=== PATIENT | female | born 1990 | race Hispanic/Latino ===

== ENCOUNTER 2017-12-31 06:59 | Emergency (ER) | payer OTHER, SELFPAY ==
[2017-12-31 08:12] LABS: BUN Blood Urea Nitrogen 11 mg/dL (7-18); Bicarbonate 24 mmol/L (21-32); Glucose Level 118 mg/dL (74-106); HCG, Quantitative 123168 mIU/mL (1-3); Potassium 3.7 mmol/L (3.5-5.1); Sodium Level 137 mmol/L (136-145)
[2017-12-31 08:14] LABS: Urine Blood 2+ (NEG); Urine Glucose NEGATIVE (NEG); Urine Protein 2+ (NEG); Urine Specific Gravity >1.030 (1.005-1.030)
[2017-12-31 08:21] LABS: Absolute Lymphocytes (CBC) 1.1 K/uL (0.7-4.9); Absolute Monocytes 0.4 K/uL (0.1-1.3); Absolute Neutrophil 12.1 K/uL (1.8-8.0); Basophils % 0.2 % (0-1.3); Eosinophils % 0.5 % (0-4.4); Hematocrit 38.6 % (36.0-45.0); Lymphocytes % 7.9 % (15.3-44.8); MCH 30.1 pg (27.0-35.0); MCV 87.3 fL (80-100); MPV 8.6 fL (7.6-11.3); Monocytes % 3.1 % (3.3-12.3); RBC Red Blood Cell Count 4.42 M/uL (3.86-4.86)
[2017-12-31 08:24] LABS: Urine Bacteria 20-50 /HPF (<20)
[2017-12-31 08:25] LABS: Urine Culture Reflex Order NOT NEEDED
--- NOTE | 2017-12-31 09:54 | ER ---
Nurse's Notes [facility] Name: Karmen Parham Age: 27 yrs Sex: Female : 1990 Arrival Date: 12/31/2017 Time: 07:01 Bed 5 Private MD: Diagnosis: Urinary tract infection, site not specified;10 weeks gestation of Presentation: 12/31 07:04 Presenting complaint: Patient states: Right flank pain 10/15 that radiates to right mid hb back that stated at 0300 today. Denies urinary s/s or fever. 10 weeks , LMP 10/21/17. Transition of care: patient was not received from another setting of care. Onset of symptoms was December 31, 2017 at 03:00. Risk Assessment: Do you want to hurt yourself or someone else? Patient reports no desire to harm self or others. Care prior to arrival: None. 07:04 Method Of Arrival: Ambulatory hb 07:04 Acuity: NAUN 3 hb 07:04 Initial Sepsis Screen: Does the patient meet any 2 criteria? No. Patient's initial aa5 sepsis screen is negative. Does the patient have a suspected source of infection? No. Patient's initial sepsis screen is negative. USED [employer]: 07:06 LMP 10/21/2017 hb Historical: - Allergies: 07:07 No Known Allergies; hb - Home Meds: 07:07 Synthroid 175 mcg Oral tab 1 tab once daily [Active]; hb 07:10 Diclegis oral oral for Nausea Gravidarum [Active]; aa5 - PMHx: 07:07 Hypothyroidism; hb - PSHx: 07:07 Appendectomy; hb - Immunization history:: Adult Immunizations up to date. - Social history:: Smoking status: Patient/guardian denies using tobacco. - Ebola Screening: : No symptoms or risks identified at this time. Screenin:25 Abuse screen: Denies threats or abuse. Nutritional screening: No deficits noted. aa5 Tuberculosis screening: No symptoms or risk factors identified. Fall Risk None identified. Assessment: 07:10 General: Appears uncomfortable, Behavior is calm, cooperative. Pain: Complains of pain aa5 in right flank Pain radiates to right mid back and right low back Pain currently is 7 out of 10 on a pain scale. Quality of pain is described as sharp, stabbing, Pain began this morning. Is continuous. Neuro: Level of Consciousness is awake, alert, obeys commands, Oriented to person, place, time, situation. Cardiovascular: Heart tones S1 S2 present Rhythm is regular. Respiratory: Airway is patent Respiratory effort is even, unlabored, Respiratory pattern is regular, symmetrical, Breath sounds are clear bilaterally. GI: Abdomen is round non-distended, Bowel sounds present X 4 quads. Abd is soft and non tender X 4 quads. Pt reports vomited once this morning. Pt states "I am taking diclegis for nausea". : Denies burning with urination, urinary frequency, urgency, vaginal bleeding. EENT: No signs and/or symptoms were reported regarding the EENT system. Derm: Skin is pink, warm \\T\\ dry. Musculoskeletal: Range of motion: intact in all extremities. 08:30 Reassessment: Patient is alert, oriented x 3, equal unlabored respirations, skin aa5 warm/dry/pink. Pt notified of US order, pt verbalized understanding. . 09:58 Reassessment: Patient is alert, oriented x 3, equal unlabored respirations, skin aa5 warm/dry/pink. Vital Signs: 07:06 BP 149 / 85; Pulse 68; Resp 16; Temp 97.9; Pulse Ox 100% on R/A; Pain 7/10; hb 08:15 BP 120 / 92; Pulse 97; Resp 18 S; Pulse Ox 99% on R/A; aa5 09:55 BP 107 / 70; Pulse 97; Resp 16 S; Pulse Ox 100% on R/A; aa5 Vitals: 08:22 Heart Tones 124 bpm, CONTAINER COORDINATOR notified . aa5 ED Course: 07:01 Patient arrived in ED. am2 07:03 [facility] Ben[facility]C [facility]. kb 07:03 Warren Hair MD is Attending Physician. kb 07:04 Chela Kenney, SHONA is Primary Nurse. aa5 07:06 Triage completed. hb 07:06 Arm band placed on right wrist. hb 07:10 Patient has correct armband on for positive identification. Bed in low position. Call aa5 light in reach. Side rails up X2. 07:25 Initial lab(s) drawn, by me, sent to lab. Inserted saline lock: 20 gauge in left aa5 antecubital area, using aseptic technique. Blood collected. 08:45 Patient taken to ultrasound. via wheelchair. hr 09:04 US Transvaginal Ob In Process Unspecified. EDMS 09:07 Ultrasound completed. Patient tolerated well. Patient moved back from ultrasound. hr 09:55 No provider procedures requiring assistance completed. aa5 09:55 IV discontinued, intact, bleeding controlled, No redness/swelling at site. Pressure aa5 dressing applied. Administered Medications: No medications were administered Outcome: 09:53 Discharge ordered by MD. kb 09:58 Discharged to home ambulatory, with family. aa5 09:58 Condition: stable 09:58 Discharge instructions given to patient, Instructed on discharge instructions, follow up and referral plans. medication usage, Demonstrated understanding of instructions, follow-up care, medications, Prescriptions given X 1. 09:59 Patient left the ED. iw Signatures: Dispatcher [employer] EDMS Ashly Benito, LUBRICATING MACHINE TENDER-C LUBRICATING MACHINE TENDER-Ckb Sunitha Gerber Erica Mcallister RN RN Chela Kenney RN RN aa5 Jami Ghosh, SHONA RN Florina Mccoy am2 Corrections: (The following items were deleted from the chart) 07:25 07:04 Presenting complaint: Patient states: Right flank pain 10/15 that radiates to hb right mid back that stated at 0300 today. Denies urinary s/s or fever. 110 weeks , LMP 10/21/17. hb
--- NOTE | 2017-12-31 09:54 | EDPHYS ---
Physician Documentation [facility] Name: Karmen Parham Age: 27 yrs Sex: Female : 1990 Arrival Date: 12/31/2017 Time: 07:01 Bed 5 Private MD: ED Physician Warren Hair HPI: 12/31 07:44 This 27 yrs old Female presents to ER via Ambulatory with complaints of kb Abdominal Pain. 07:44 The patient presents with abdominal pain in the right upper quadrant, right lower kb quadrant. Onset: The symptoms/episode began/occurred today, at 03:00. The symptoms radiate to the right flank. Associated signs and symptoms: none. The symptoms are described as constant. Modifying factors: The symptoms are alleviated by nothing, the symptoms are aggravated by pressure. Severity of pain: At its worst the pain was mild moderate in the emergency department the pain is unchanged. The patient has not experienced similar symptoms in the past. The patient has not recently seen a physician. PIZZA COOK: 07:06 LMP 10/21/2017 hb Historical: - Allergies: 07:07 No Known Allergies; hb - Home Meds: 07:07 Synthroid 175 mcg Oral tab 1 tab once daily [Active]; hb 07:10 Diclegis oral oral for Nausea Gravidarum [Active]; aa5 - PMHx: 07:07 Hypothyroidism; hb - PSHx: 07:07 Appendectomy; hb - Immunization history:: Adult Immunizations up to date. - Social history:: Smoking status: Patient/guardian denies using tobacco. - Ebola Screening: : No symptoms or risks identified at this time. ROS: 07:42 Constitutional: Negative for fever, chills, and weight loss, Neck: Negative for injury, kb pain, and swelling, Cardiovascular: Negative for chest pain, palpitations, and edema, Respiratory: Negative for shortness of breath, cough, wheezing, and pleuritic chest pain, : Negative for injury, bleeding, discharge, and swelling, MS/Extremity: Negative for injury and deformity, Skin: Negative for injury, rash, and discoloration, Neuro: Negative for headache, weakness, numbness, tingling, and seizure. 07:42 Abdomen/GI: Positive for abdominal pain. 07:42 Back: Positive for flank pain, on the right. Exam: 07:43 Constitutional: This is a well developed, well nourished patient who is awake, alert, kb and in no acute distress. Head/Face: Normocephalic, atraumatic. Chest/axilla: Normal chest wall appearance and motion. Nontender with no deformity. No lesions are appreciated. Cardiovascular: Regular rate and rhythm with a normal S1 and S2. No gallops, murmurs, or rubs. Normal PMI, no JVD. No pulse deficits. Respiratory: Lungs have equal breath sounds bilaterally, clear to auscultation and percussion. No rales, rhonchi or wheezes noted. No increased work of breathing, no retractions or nasal flaring. Skin: Warm, dry with normal turgor. Normal color with no rashes, no lesions, and no evidence of cellulitis. MS/ Extremity: Pulses equal, no cyanosis. Neurovascular intact. Full, normal range of motion. Neuro: Awake and alert, GCS 15, oriented to person, place, time, and situation. Cranial nerves II-XII grossly intact. Motor strength 5/5 in all extremities. Sensory grossly intact. Cerebellar exam normal. Normal gait. 07:43 Abdomen/GI: Inspection: abdomen appears normal, Bowel sounds: normal, in all quadrants, Palpation: soft, in all quadrants, mild abdominal tenderness, in the right upper quadrant and right lower quadrant. 07:43 Back: CVA tenderness, that is mild, is noted on the right. Vital Signs: 07:06 BP 149 / 85; Pulse 68; Resp 16; Temp 97.9; Pulse Ox 100% on R/A; Pain 7/10; hb 08:15 BP 120 / 92; Pulse 97; Resp 18 S; Pulse Ox 99% on R/A; aa5 09:55 BP 107 / 70; Pulse 97; Resp 16 S; Pulse Ox 100% on R/A; aa5 MDM: 07:05 Patient medically screened. kb 07:44 Data reviewed: vital signs, nurses notes. Data interpreted: Pulse oximetry: on room air kb is 100 %. Interpretation: normal. 09:49 Counseling: I had a detailed discussion with the patient and/or guardian regarding: the kb historical points, exam findings, and any diagnostic results supporting the discharge/admit diagnosis, lab results, radiology results, the need for outpatient follow up, an OB/Gyne specialist, to return to the emergency department if symptoms worsen or persist or if there are any questions or concerns that arise at home. 12/31 07:20 Order name: Urine Microscopic Only; Complete Time: 08:25 kb 12/31 07:20 Order name: Quantitative Hcg; Complete Time: 08:14 kb 12/31 07:20 Order name: Abo/rh Typing; Complete Time: 08:14 kb 12/31 07:20 Order name: Basic Metabolic Panel; Complete Time: 08:14 kb 12/31 07:20 Order name: CBC with Diff kb 12/31 07:21 Order name: Urine Dipstick--Ancillary (enter results) bd 12/31 07:11 Order name: Urine Dipstick-Ancillary (obtain specimen); Complete Time: 07:18 kb 12/31 07:20 Order name: Urine Test (obtain specimen); Complete Time: 07:25 kb 12/31 07:20 Order name: IV Saline Lock; Complete Time: 07:25 kb 12/31 07:20 Order name: Labs collected and sent; Complete Time: 07:26 kb 12/31 07:21 Order name: Urine --Ancillary (enter results); Complete Time: 08:18 bd 12/31 08:14 Order name: ABO/RH no charge; Complete Time: 08:18 EDMS 12/31 08:21 Order name: CBC Smear Scan EDMS 12/31 08:24 Order name: US Transvaginal Ob kb 12/31 07:20 Order name: NPO; Complete Time: 07:22 kb 12/31 08:14 Order name: FHT's; Complete Time: 08:26 kb Administered Medications: No medications were administered Disposition: 14:10 Co-signature as Attending Physician, Warren Hair MD I agree with the assessment and efra plan of care. Disposition: 12/31/17 09:53 Discharged to Home. Impression: Urinary tract infection, site not specified, 10 weeks gestation of . - Condition is Stable. - Discharge Instructions: First Trimester of , [id number], and Urinary Tract Infection. - Prescriptions for Augmentin 875- 125 mg Oral Tablet - take 1 tablet by ORAL route every 12 hours for 7 days; 14 tablet. - Medication Reconciliation Form, Thank You Letter, Antibiotic Education, Prescription Opioid Use form. - Follow up: Emergency Department; When: As needed; Reason: Worsening of condition. Follow up: Private Physician; When: 2 - 3 days; Reason: Recheck today's complaints, Continuance of care, Re-evaluation by your physician. Signatures: Dispatcher [employer] Ashly Jones, JAYA-Dae BENAVIDESP-Warren Sorto MD MD cha Williams, Irene, SHONA RN iw Chela Kenney RN RN aa5 Jami Ghosh RN RN Corrections: (The following items were deleted from the chart) 09:54 09:53 12/31/2017 09:53 Discharged to Home. Impression: Urinary tract infection, site kb not specified. Condition is Stable. Forms are Medication Reconciliation Form, Thank You Letter, Antibiotic Education, Prescription Opioid Use. Follow up: Emergency Department; When: As needed; Reason: Worsening of condition. Follow up: Private Physician; When: 2 - 3 days; Reason: Recheck today's complaints, Continuance of care, Re-evaluation by your physician. kb 09:59 09:54 12/31/2017 09:53 Discharged to Home. Impression: Urinary tract infection, site iw not specified; 10 weeks gestation of . Condition is Stable. Forms are Medication Reconciliation Form, Thank You Letter, Antibiotic Education, Prescription Opioid Use. Follow up: Emergency Department; When: As needed; Reason: Worsening of condition. Follow up: Private Physician; When: 2 - 3 days; Reason: Recheck today's complaints, Continuance of care, Re-evaluation by your physician. kb
--- NOTE | 2017-12-31 10:10 | RAD REPORT ---
EXAM DESCRIPTION: US - Transvaginal OB - 12/31/2017 9:03 am CLINICAL HISTORY: with abdominal pain delete the COMPARISON: None. FINDINGS: The uterus measures 12 x 7 x 8 centimeters. A gestational sac is present within the endom etrium. Within this is a yolk sac and pole with a crown-rump length 3.4 centimeters. Cardiac ac tivity 168 beats per minute A mucus plug is suspected within the cervical canal The ovaries are normal in size and echotexture. No significant free fluid is seen. IMPRESSION: Single live intrauterine with an estimated gestational age 10 weeks 2 days ED D 07/27/2018
[2017-12-31 12:25] LABS: Blood Morphology Comment NOT SEEN (NOT SEEN); Platelet Estimate ADEQ; Urine White Blood Cell Casts OK
== END 2017-12-31 09:59 | disposition home or self-care (01) ==
LOC: ER 06:59
DX: O23.41 Unspecified infection of urinary tract in pregnancy, first trimester (principal); O99.281 Endocrine, nutritional and metabolic diseases complicating pregnancy, first trimester; E03.9 Hypothyroidism, unspecified
CPT/HCPCS: 36415; 76817; 80048; 81003; 81015; 81025; 84702; 85025; 86900; 86901; 99284

== ENCOUNTER 2018-02-11 16:22 | Inpatient (IN) | payer OTHER ==
[2018-02-11 17:55] LABS: Absolute Lymphocytes (CBC) 1.5 K/uL (0.7-4.9); Absolute Monocytes 0.4 K/uL (0.1-1.3); Absolute Neutrophil 8.8 K/uL (1.8-8.0); Basophils % 0.6 % (0-1.3); Eosinophils % 1.3 % (0-4.4); Hematocrit 38.6 % (36.0-45.0); Lymphocytes % 13.6 % (15.3-44.8); MCV 88.2 fL (80-100); MPV 8.4 fL (7.6-11.3); Monocytes % 3.7 % (3.3-12.3); RBC Red Blood Cell Count 4.38 M/uL (3.86-4.86)
[2018-02-11 18:20] LABS: ALT/SGPT 24 U/L (12-78); AST/SGOT 14 U/L (15-37); Albumin 3.3 g/dL (3.4-5.0); Alkaline Phosphatase 84 U/L (45-117); BUN Blood Urea Nitrogen 8 mg/dL (7-18); Bicarbonate 23 mmol/L (21-32); Bilirubin Total 0.2 mg/dL (0.2-1.0); Glucose Level 120 mg/dL (74-106); Magnesium 1.8 mg/dL (1.8-2.4); Potassium 3.4 mmol/L (3.5-5.1); Protein, Total 7.3 g/dL (6.4-8.2); Sodium Level 138 mmol/L (136-145); Thyroid Stimulating Hormone 0.262 uIU/mL (0.360-3.740)
[2018-02-11] MEDS ORDERED: POTASSIUM 25 MEQ EFFERV TAB PO ONE (18:38)
[2018-02-11] MEDS ORDERED: MAGNESIUM SULFATE 1 gm IVPB 1 GM/100 ML BAG IV ONE (20:00)
[2018-02-11] MEDS ORDERED: NA CHLORIDE 0.9% 250 ML ONE (20:32)
--- NOTE | 2018-02-11 20:55 | RAD REPORT ---
EXAM DESCRIPTION: US - OB Complete - 02/11/2018 8:33 pm CLINICAL HISTORY: Pyelonephritis, Back pain age. COMPARISON: Transvaginal OB dated 12/31/2017 FINDINGS: A single breech presenting gestation is identified. Heart rate normal. The intracranial contents and spine were suboptimally visualized due to position. Fluid-f illed stomach bubble was seen. A normal fluid-filled urinary bladder seen without pelviectasis. Three-vessel cord was limited by position. Four-chamber view of the heart is grossly unremarka ble for gestational age. No gross abnormalities are identifiable for gestational age. measurements are as follows: BPD:3.5 Centimeters 16 weeks 6 days HC:13.3 Centimeters 16 weeks 6 days AC:10.8 Centimeters 16 weeks 5 days HL:2.2 Centimeters 16 weeks 6 days FL:2.3 Centimeters 16 weeks 5 days The estimated gestational age (EGA) is 16 weeks 6 days with an XAVIER of07/23/2018. The placenta is grade 0, anterior in location. No placenta previa. The amniotic fluid volume is normal. The maternal adnexa show no worrisome findings. IMPRESSION: 1. Single, breech gestation with an EGA of 16 weeks 6 days and an XAVIER of the 07/23/2018. 2. No gross abnormalities are identifiable within the above detailed limitations. 3. Grade 0, anterior placenta. 4. Amniotic fluid volume is normal.
[2018-02-11] MEDS ORDERED: Meropenem 1000 MG/VIAL IV SCH (21:00)
[2018-02-11] MEDS: Meropenem 1,000 MG in NA CHLORIDE 0.9% 100 ML IV SCH (21:27)
--- NOTE | 2018-02-11 22:26 | P.CNS ---
Date of Consult: 02/11/18 Patient is a 27 y/o XAVIER 07/28/18 at 16 weeks gestation with care complicated by hypothyroidism and now is admitted due to acute pyleonephritis. Patient had been treated with antibiotics for the last 2 weeks and now was found to have a urine culture positive for 3 organisms: Klebsiella pneumoniae, E. coli, and proteus mirabalis. Culture is ESBL positive requiring treatment with meropenem. Patient currently reports some flank pain. She is also still experiencing burning with urination. She denies pelvic pain/cramping. No vaginal bleeding. Denies feeling movements. Patient is scheduled to see MF for this as well due to hypothyroidism. SPECIAL NEEDS CHILD CAREGIVER: primiparous; regular menses PMH: hypothyroidism; synthroid 175 mcg RH positive Selected Entries 02/11/18 02/11/18 02/11/18 17:00 17:09 20:00 Temperature 97.9 F 97.9 F Pulse Rate 117 H 103 H Respiratory 17 18 Rate Blood Pressure 116/73 126/70 Pain Level 0 O2 Sat by Pulse 98 Oximetry Laboratory Tests 02/11/18 17:20 WBC 10.8 Hgb 13.1 Hct 38.6 Plt Count 290 General: Patient is standing up in her room without any distress head and neck: Normocephalic atraumatic neck is supple abdomen: Gravid nontender bilaterally extremities: No clubbing cyanosis or edema Nerissa the is a 27-year-old 1 para 0 at 16 weeks gestation with acute pyelonephritis with 3 microorganisms and ESBL. She will receive IV meropenem. Discussed safety with patient. Patient verbalizes understanding and feels reassured. Will order an OB ultrasound. Patient will continue to be followed by primary attending. Patient will follow up with me in the office and also will be scheduled to see MFM. No further OB intervention.
[2018-02-12 06:52] LABS: BUN Blood Urea Nitrogen 6 mg/dL (7-18); Bicarbonate 24 mmol/L (21-32); Glucose Level 99 mg/dL (74-106); Magnesium 1.9 mg/dL (1.8-2.4); Potassium 3.7 mmol/L (3.5-5.1); Sodium Level 138 mmol/L (136-145)
--- NOTE | 2018-02-12 07:59 | RAD REPORT ---
EXAM DESCRIPTION: RAD - Chest Single View - 02/11/2018 11:19 pm CLINICAL HISTORY: Device placement PICC line placement COMPARISON: none FINDINGS: A PICC line has been inserted with its tip in the mid superior vena cava. The lungs appear clear of acute infiltrate. The heart is normal size. IMPRESSION: PICC line with its tip in the mid superior vena cava
[2018-02-12] MEDS: Meropenem 1,000 MG in NA CHLORIDE 0.9% 100 ML IV SCH ×2 (09:25→20:43)
--- NOTE | 2018-02-12 12:04 | RAD REPORT ---
EXAM DESCRIPTION: US - Renal Ultrasound-Complete - 02/12/2018 8:45 am CLINICAL HISTORY: . COMPARISON: None. FINDINGS: The right kidney measures 10 cm with a normal echotexture. The left kidney measures 11 cm with a normal echotexture. Hydronephrosis is not seen. Bladder is decompressed Fatty infiltration liver suspected IMPRESSION: Unremarkable renal ultrasound.
--- NOTE | 2018-02-12 19:25 | HP ---
Date of Admission: 02/11/2018 Chief Complaint: Urinary tract infection. 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 She was evaluated in the emergency room at that time. Her evaluation at that time consisted o f urinalysis, CBC and white count had shown 13.7, otherwise CBC was unremarkable. Chemistry was unre markable. Urinalysis was abnormal consistent with urinary tract infection. There was no urine cultu re done and she was sent home with oral antibiotics. Her left posterior flank pain got better as she reported after use of antibiotics and she was doing fine until on 02/08/2018, [facility] with recurrence of left posterior flank pain and through [facility] she was given antib iotics after urinalysis and urine culture was done. She was taking antibiotic and today, she was con tacted by [facility] that her urine culture results came back and she needed to take 5 more d ays of Augmentin and the patient did not feel comfortable with this information that she got [facility], so she came in to see me with her mother today. The patient says she has not felt a ny better this time after oral antibiotic was given from [facility] on 02/08/2018, she contin ues to have feeling like pressure in the bladder area and left posterior flank pain. She denies any fever or chills. During this in the beginning phase, she had some nausea and vomiting, whi ch had gotten better, but as of last 3-4 days her nausea and vomiting problem has gotten worse with t his urinary tract infection problem. After she came to office, after I evaluated, I also reviewed he r urine culture results and unfortunately her urine culture that was done at our hospital to [facility] on 02/08/2018 is growing 3 different bacteria, Klebsiella, Proteus, E coli, and this organ ism is ESBL as reported by microbiology lab and antibiotic of choice for this kind of infection is me ropenem. I did talk to patient in detail about all this results and obviously she is not improving a ny with this infection with oral antibiotic, now we have definite evidence of what particular type of infection she has and we will be recommending her to be admitted to the hospital for IV antibiotic t herapy. The patient agreed, I did contact her RN TRAUMA Dr. Fonseca to discuss details with her and she a grees with the plan of treatment and meropenem is category B drug. All these details were discussed with the patient. Allergies: NO KNOWN ALLERGIES. Medications: She takes Diclegis 1 tablet at bedtime and levothyroxine 175 mcg p.o. daily. Review of Systems: Genitourinary: As mentioned above. GI: As mentioned above. All other systems reviewed and negative. Social History: Negative for smoking, alcohol use. Family History: Significant for hyperlipidemia. Past Medical History: Significant for hypothyroidism. Past Surgical History: Appendectomy and surgery for strabismus. Physical Examination: Vital Signs: When I saw her at office for vital Signs; height 59 inches, weight 163.4 pounds, blood pressure 124/80, pulse 94, respiratory rate 15, temperature 98 degree Fahrenheit. General: Awake, alert, oriented, not in distress. HEENT: Head atraumatic, normocephalic. Conjunctivae nonerythematous. Sclerae white. Mouth, no thr ush or edema noted. Ears/Nose, no mass, lesion, discharge noted. Neck: Supple. No JVD, lymph nodes, bruit, thyromegaly noted. Lungs: Bilateral good equal air entry. Clear to auscultation. No rhonchi. No rales. Heart: Normal heart sounds, no murmur or gallop. Abdomen: Soft, bowel sounds normal. No guarding, rigidity, tenderness, mass, hepatosplenomegaly, dis tention, or bruit noted. Extremities: No leg edema. No calf tenderness. Skin: No rash, ulcer, cellulitis. Lymphatics: No lymph node enlargement in neck, supraclavicular, infraclavicular region. Neuro: No focal neurological deficit. Chest: Unremarkable. External Genitalia: Deferred. Rectal: Deferred. Laboratory Data: White count 10.8, hemoglobin 13.1, platelets 290. Sodium 138, potassium 3.4, chlor yaneth 107, bicarb 23, BUN 8, creatinine 0.40, glucose 120. Liver function tests unremarkable. Magnesi um 1.8. TSH 0.262. Procalcitonin less than 0.05. Impression: 1.Acute pyelonephritis, left side. 2.Hypokalemia. 3., gestational 4 months. 4.Hypothyroidism. Plan: We will admit the patient to hospital for further evaluation and management of this problem. The patient is appropriate for inpatient and is expected to spend 2 midnights in hospital. Details a nd plan of treatment discussed with her. The patient is having this urinary tract infection problem started over a month ago and she did improve with oral antibiotic initially, which was about a month ago, this time she is not improving any. Obviously, her urine culture is growing 3 different bacteri a and it is ESBL. We will go ahead and initiate IV antibiotic therapy, which is meropenem and it is category B drug. Details were discussed with her and Dr. Fonseca, she is in agreement with t nancy treatment plan and we will consult her while patient is in the hospital for her evaluation. We wi ll get a renal ultrasound done tomorrow. I will see her tomorrow for followup. MICHELLE/MAEVE Voice ID: [id number]
--- NOTE | 2018-02-12 23:04 | PN ---
Date of Progress Note: 02/12/2018 Subjective: The patient was seen this morning for followup. She denied any complaints overnight. N o nausea, vomiting. Objective: Vital Signs: Reviewed. HEENT: Unremarkable. Lungs: Clear to auscultation. No rhonchi or rales. Heart: Sounds normal. Abdomen: Soft. Bowel sounds normal. No guarding, rigidity, tenderness, distention. Extremities: No leg edema. Laboratory Data: Sodium 138, potassium 3.7, chloride 108, bicarb 24, BUN 6, creatinine 0.30, glucose 99. The patient had a PICC line placed last night. Chest x-ray reviewed. Her renal ultrasound don e today was unremarkable. Impression: 1.Acute pyelonephritis. 2.Hypothyroidism. Plan: We will continue current meropenem and Social Service to help make arrangements for IV antibio tics for home use, possible discharge to go home tomorrow. SCDs in place for DVT prophylaxis. MICHELLE/MAEVE Voice ID: [id number] Report ID: [id number]
[2018-02-13] MEDS: Meropenem 1,000 MG in NA CHLORIDE 0.9% 100 ML IV SCH (09:39)
--- NOTE | 2018-02-14 16:22 | DS ---
Date of Discharge: 02/13/2018 Hospital Course: This is a 27-year-old female patient and Social Service was consulted to help make arrangements for IV antibiotics to be done at home. Renal ultrasound was unremarkable. S he had left posterior flank pain and some pressure in bladder area and all those symptoms have improv ed with IV antibiotic therapy. Today, she was discharged to go home in stable condition with followi ng discharge medications. Final Diagnoses: 1.Acute pyelonephritis, left side. 2.Hypokalemia. 3., gestational, 4 months. 4.Hypothyroidism. Discharge Medications And Instructions: 1.Continue prior home medications. 2.Home health nurse will assist the patient for 12 days of IV meropenem 1000 mg IV piggyback every 1 2 hours, flush PICC line per protocol, change PICC line dressing per protocol, draw CBC and chem-7 ev laura third day while on IV antibiotic therapy. 3.Follow up at my office in 2 weeks. We will plan to repeat urinalysis and urine culture after IV a ntibiotic therapy gets done and once we back, we will decide about discontinuation of IV P ICC line. MICHELLE/MODL Voice ID: [id number] Report ID: [id number]
== END 2018-02-13 14:00 | disposition home health service (06) | DRG 832 ==
LOC: 2ND 16:42
PROVIDERS: ADMIT Internal Medicine; ATTEND Internal Medicine
DX: O23.02 Infections of kidney in pregnancy, second trimester (principal); N10 Acute pyelonephritis; Z3A.00 Weeks of gestation of pregnancy not specified; E87.6 Hypokalemia; O99.282 Endocrine, nutritional and metabolic diseases complicating pregnancy, second trimester; E03.9 Hypothyroidism, unspecified; B96.1 Klebsiella pneumoniae [K. pneumoniae] as the cause of diseases classified elsewhere; B96.4 Proteus (mirabilis) (morganii) as the cause of diseases classified elsewhere; B96.20 Unspecified Escherichia coli [E. coli] as the cause of diseases classified elsewhere
CPT/HCPCS: 36415; 71045; 76770; 76805; 80048; 80053; 83735; 84145; 84443; 85025; 87040; J3475

== ENCOUNTER 2018-04-10 09:53 | Inpatient (IN) | payer OTHER ==
[2018-04-10] MEDS ORDERED: Ringers Lactate 1,000 ML IV SCH ×2 (10:00→19:00)
[2018-04-10] MEDS ORDERED: METOCLOPRAMIDE 10 MG/2mL INJ IV PRN (10:00)
[2018-04-10] MEDS ORDERED: ONDANSETRON 4 MG/2 ML VIAL IV PRN (10:00)
[2018-04-10 10:30] LABS: Absolute Lymphocytes (CBC) 0.9 K/uL (0.7-4.9); Absolute Monocytes 0.9 K/uL (0.1-1.3); Absolute Neutrophil 13.2 K/uL (1.8-8.0); Basophils % 0.1 % (0-1.3); Eosinophils % 0.2 % (0-4.4); Hematocrit 35.2 % (36.0-45.0); Lymphocytes % 5.9 % (15.3-44.8); Monocytes % 5.8 % (3.3-12.3); RBC Red Blood Cell Count 4.05 M/uL (3.86-4.86)
[2018-04-10] MEDS ORDERED: CEFTRIAXONE/SWI 2gm 2 GM/20 ML SYR IV ONE (10:30)
[2018-04-10 10:48] LABS: ALT/SGPT 20 U/L (12-78); AST/SGOT 19 U/L (15-37); Albumin 2.9 g/dL (3.4-5.0); Alkaline Phosphatase 105 U/L (45-117); Amylase Level 59 U/L (25-115); BUN Blood Urea Nitrogen 9 mg/dL (7-18); Bicarbonate 22 mmol/L (21-32); Bilirubin Total 0.3 mg/dL (0.2-1.0); Glucose Level 105 mg/dL (74-106); Lipase 174 U/L (73-393); Potassium 3.6 mmol/L (3.5-5.1); Protein, Total 6.8 g/dL (6.4-8.2); Sodium Level 139 mmol/L (136-145)
[2018-04-10] MEDS: CODEINE 30MG/APAP 300MG TAB PO PRN ×2 (11:20→17:10)
[2018-04-10 11:24] LABS: Urine Appearance CLEAR; Urine Bilirubin NEGATIVE (NEG); Urine Blood 2+ (NEG); Urine Color YELLOW; Urine Glucose NEGATIVE (NEG); Urine Protein NEGATIVE (NEG); Urine Urobilinogen 0.2 mg/dL (0.2-1.0)
[2018-04-10 11:28] LABS: Blood Morphology Comment NOT SEEN (NOT SEEN); Platelet Estimate ADEQ; Urine White Blood Cell Casts OK
--- NOTE | 2018-04-10 11:42 | RAD REPORT ---
EXAM DESCRIPTION: US - Renal Ultrasound-Complete - 04/10/2018 11:24 am CLINICAL HISTORY: , flank pain COMPARISON: Ultrasound February 2018 FINDINGS: The right kidney measures 11.6 x 5.5 x 5.9 cm. The left kidney measures 13.1 x 6.1 x 5.2 cm. Renal cortical thickness and echogenicity are normal. No solid mass of either kidney. Mild to moderate bilateral hydronephrosis is present. A few punctate hyperechoic foci air seen withou t shadowing. An obstructing calculus is not seen. The hyperechoic foci are potentially nonobstructing calculi or prominent focal fat. Urinary bladder was obscured. IMPRESSION: [id number] bilateral hydronephrosis. No obstructing calculus confirmed. Presence of bilateral hydronephrosis would favor physiologic hydronephrosis from extrinsic uterine co mpression of the distal ureters.
--- NOTE | 2018-04-10 11:54 | RAD REPORT ---
EXAM DESCRIPTION: US - OB Complete - 04/10/2018 11:24 am CLINICAL HISTORY: Maternal pyelonephritis flank pain, well-being COMPARISON: February 2018 FINDINGS: A single cephalic presenting gestation is identified. The 4 chamber heart view has a karena l appearance. Heart rate normal. The intracranial contents and spine are grossly normal. A lef t-sided stomach bubble is seen with normal appearing bladder and kidneys. The 3 vessel cord, inserti on site and anterior abdominal wall have normal appearance. Umbilical cord is closely approximated t o the neck and may represent to loops of the cord. Nuchal cord is questioned. assessment was limited. Patient was nauseated and in significant pain. This precluded optimal p ositioning and visualization. measurements are as follows: BPD:6.26 Centimeters 25 weeks 3 days HC:23.47 Centimeters 25 weeks 4 days AC:20.47 Centimeters 25 weeks 0 days HL:4.47 Centimeters 26 weeks 4 days FL:4.94 Centimeters 26 weeks 5 days The estimated gestational age (EGA) is 25 weeks 6 days with an XAVIER of 07/18/2018. ratios are n ormal or within acceptable limits. The placenta is grade 0, anterior in location. No low-lying or vita centa previa. The amniotic fluid volume is normal. No adequate cervical canal assessment could be ma de. DAVID is normal range at 12.98 cm. No maternal adnexa abnormality. IMPRESSION: 1. Single, cephalic gestation with an EGA of 25 weeks 6 days and an XAVIER of the 9. Due date has decreased by 5 days since the February 11 study. 2. There is a questionable nuchal cord. No anatomic abnormality otherwise noted. Exam was limit ed as the patient was in significant pain and was having a difficult time remaining in position for t he study. ratios are normal or within acceptable limits. 3. Grade 0, anterior placenta with no low-lying or placenta previa. 4. Amniotic fluid volume is normal. DAVID is 12.98 cm.
[2018-04-10 12:47] LABS: Urine Bacteria <20 /HPF (<20)
[2018-04-10 12:48] LABS: Urine Culture Reflex Order NOT NEEDED; Urine Mucus 3+ /HPF (NONE SEEN)
[2018-04-10] MEDS ORDERED: MEPERIDINE HCL 25 MG/0.5 ML IV ONE (14:22)
[2018-04-10] MEDS ORDERED: MEPERIDINE HCL 25 MG/0.5 ML ONE (14:31)
[2018-04-10] MEDS ORDERED: Ringers Lactate 1,000 ML IV ONE (17:44)
--- NOTE | 2018-04-10 17:49 | P.CNS ---
Date of Consult: 04/10/18 Reason for Consult: Hydronephrosis with possiblity of Pyelonephritis Chief Complaint: Left Flank pain History of Present Illness: This is a 27-year-old female with past medical history of hypothyroidism who is currently 24 weeks presented to the hospital complaining of having some right flank pain. Patient stated that her right flank pain started about last night and got progressively worse. Patient also complained of having some nausea and vomiting that has gotten progressively worse as well. Patient denies having any fever chills or urinary frequency or any other symptoms associated with it. Patient was recently admitted to the hospital with pyelonephritis. Was found to have multidrug resistant E. coli infection and was started on IV meropenem for total of 2 weeks. Patient was admitted under OBGYN service hospitalist team was consulted due to right flank pain and ultrasound results of hydronephrosis. Allergies No Known Allergies Allergy (Unverified 02/11/18 17:44) Home Medications: Doxylamine/Pyridoxine HCl [Diclegis Dr 10-10 mg Tablet] 10 mg PO BEDTIME Levothyroxine Sodium [Synthroid] 175 mcg PO DAILY 02/11/18 Meropenem [Merrem 1 GM/100 ML NS IVPB] 0 gm IV Q12H 12 Days bag 02/13/18 - Past Medical/Surgical History Diabetic: No -: hypothyroidism -: appendectomy -: eye surgerry - Family History Father Medical History: Other (see notes) Notes: none Mother Notes: none - Social History Alcohol use: No CD- Drugs: No Caffeine use: No Place of Residence: Home Review of Systems 10-point ROS is otherwise unremarkable Physical Examination Temp Pulse Resp BP Pulse Ox 98.5 F 119 H 18 121/76 04/10/18 16:00 04/10/18 16:00 04/10/18 16:00 04/10/18 16:00 General: Alert, In no apparent distress HEENT: Atraumatic, PERRLA, Mucous membr. moist/pink, EOMI, Sclerae nonicteric Neck: Supple, 2+ carotid pulse no bruit, No LAD, Without JVD or thyroid abnormality Respiratory: Clear to auscultation bilaterally, Normal air movement Cardiovascular: Regular rate/rhythm, Normal S1 S2 Gastrointestinal: Normal bowel sounds, No tenderness Musculoskeletal: No tenderness (Negative CVA tenderness) Integumentary: No rashes Neurological: Normal gait, Normal speech, Normal tone, Normal affect Lymphatics: No axilla or inguinal lymphadenopathy Laboratory Data (last 24 hrs) 04/10/18 10:15: Sodium 139, Potassium 3.6, BUN 9, Creatinine 0.63, Glucose 105, Total Bilirubin 0.3, AST 19, ALT 20, Alkaline Phosphatase 105, Amylase 59, Lipase 174 04/10/18 10:15: WBC 15.1 H, Hgb 11.8 L, Hct 35.2 L, Plt Count 272 - Problems (1) Right flank pain Current Visit: Yes Status: Acute Plan: Right Flank Pain most likely 2.2 to Pyelonephritis -Started on IV rocephin for now -US renal - Consistent with Hydronephrosis -Most Likely physiologic 2.2 to . -Will Insert Hitchcock for now -Urine culture pending. Past H/o ESBL treatment with Meropenum recently for 2 weeks -Will f.u with Results (2) Nausea & vomiting Current Visit: Yes Status: Acute Plan: IV zofran for now Qualifiers: Vomiting type: cyclical vomiting Vomiting Intractability: non-intractable Qualified Code(s): G43.A0 - Cyclical vomiting, not intractable (3) 24 weeks gestation of Current Visit: Yes Status: Chronic Plan: OBGYN primary on the case.
[2018-04-10 20:40] LABS: Absolute Lymphocytes (CBC) 1.3 K/uL (0.7-4.9); Absolute Monocytes 0.9 K/uL (0.1-1.3); Absolute Neutrophil 13.1 K/uL (1.8-8.0); Basophils % 0.3 % (0-1.3); Eosinophils % 0.3 % (0-4.4); Hematocrit 32.7 % (36.0-45.0); Lymphocytes % 8.4 % (15.3-44.8); MPV 7.8 fL (7.6-11.3); Monocytes % 6.1 % (3.3-12.3); RBC Red Blood Cell Count 3.72 M/uL (3.86-4.86)
--- NOTE | 2018-04-11 03:08 | HP ---
Date of Admission: 04/10/2018 History Of Present Illness: Karmen is a 27-year-old, 1, para 0-0-1 at 24 weeks and 3 days gestation who presents to labor and delivery with acute left -sided flank pain that has been progressively hurting her for the last 2 days. The patient also states that she is having difficulty urinating. This patient previously was admitted for acute pyelonephritis in February due to having urinary infection by 3 organisms; E coli, Klebsiella pneumoniae, and Proteus mirabilis. The last organism was ESBL, and the patient was treated with IV antibiotics and was sent home with a PICC line. The patient now returns to labor and delivery with a similar complaint as she had previously. The patient states that the pain is very severe. She denies seeing blood in the urine; however, she states she is having a lot of burning. She has obtained care with me beginning around 10 weeks' gestation. I have also had her see a high-credit risk associate, who she saw on March 25. He encouraged her to drink lots of water and to take 3 cranberry tablets daily. I also had the patient placed on Macrobid 100 mg daily for suppression. Past Medical History: Significant for hypothyroidism. This is her first . Past Surgical History: Includes an appendectomy and an ophthalmologic procedure. Her last hospitalization was in February 2018 for acute pyelonephritis. Family History: Includes diabetes, hypertension, high cholesterol, anxiety, and thyroid disease. Physical Examination: Vital Signs: Blood pressure 126/75, pulse of 108, temperature is 97.9, respirations are 18. Pain is a 6/10. General: The patient is resting in bed, in moderate pain distress. Head and Neck: Normocephalic, atraumatic. Neck is supple. Respiratory: Symmetric nonlabored breathing. Heart: Normal rhythm. Abdomen: Gravid. Extremities: Bilateral lower extremities; no clubbing, cyanosis, or edema. Vaginal: Exam deferred. Laboratory Data: Urinalysis has been sent and reveals 1+ ketones, 2+ blood. Urine culture sent. White blood cell count is 15.1, hemoglobin 11.8, hematocrit 35.2, platelet count is 272. Chemistry: Sodium is 139, potassium 3.6, AST is 19, ALT is 20. Amylase and lipase are both normal. An ultrasound was performed on the fetus. No issues were noted. Renal ultrasound reveals bilateral hydronephrosis without any significant issues seen. Assessment And Plan: Karmen is a 27-year-old, 1, para 0, at 24 weeks and 3 days gestation with acute pyelonephritis versus renal stones. Plan is to keep the patient for observation. Rocephin 2 g IV piggyback given to the patient. Urine culture sent. Blood cultures were also drawn. We will also consult General Medicine. We will provide pain management as well. VLADIMIR Voice ID: [id number] MTDD
[2018-04-11] MEDS ORDERED: CEFTRIAXONE/SWI 1gm 1 GM/10 ML SYR IVP SCH (09:00)
[2018-04-11 09:41] LABS: Urine Appearance CLEAR; Urine Bilirubin NEGATIVE (NEG); Urine Blood 2+ (NEG); Urine Color YELLOW; Urine Glucose NEGATIVE (NEG); Urine Protein NEGATIVE (NEG); Urine Urobilinogen 0.2 mg/dL (0.2-1.0); Urine pH 6.5 (5.0-7.0)
[2018-04-11 09:46] LABS: Absolute Monocytes 0.7 K/uL (0.1-1.3); Absolute Neutrophil 7.8 K/uL (1.8-8.0); Basophils % 0.7 % (0-1.3); Eosinophils % 1.3 % (0-4.4); Hematocrit 31.2 % (36.0-45.0); Lymphocytes % 10.3 % (15.3-44.8); Monocytes % 7.1 % (3.3-12.3); RBC Red Blood Cell Count 3.56 M/uL (3.86-4.86)
[2018-04-11 09:56] LABS: Urine Bacteria <20 /HPF (<20); Urine Culture Reflex Order REFLEXED
--- NOTE | 2018-04-11 11:05 | P.PN ---
Subjective Date of Service: 04/11/18 Chief Complaint: Left Flank pain Patient seen and examined at bedside with RN. Case discussed with OBGYN. This morning patient has no complaints to offer. States that she feels much better than before. Nausea vomiting has resolved at this time. Flank pain has resolved at this time as well. Review of Systems 10-point ROS is otherwise unremarkable Physical Examination - Vital Signs Temperature: 98.1 F Blood Pressure: 117/59 Pulse: 106 Respirations: 16 - Physical Exam General: Alert, In no apparent distress HEENT: Atraumatic, PERRLA, EOMI Neck: Supple, JVD not distended Respiratory: Clear to auscultation bilaterally, Normal air movement Cardiovascular: Regular rate/rhythm, Normal S1 S2 Gastrointestinal: Normal bowel sounds, No tenderness Musculoskeletal: No tenderness Integumentary: No rashes Neurological: Normal speech, Normal tone, Normal affect Lymphatics: No axilla or inguinal lymphadenopathy - Studies Laboratory Data (last 24 hrs) 04/11/18 09:18: WBC 9.6 D, Hgb 10.6 L, Hct 31.2 L, Plt Count 225 04/10/18 20:32: WBC 15.5 H, Hgb 11.0 L, Hct 32.7 L, Plt Count 242 04/10/18 10:15: WBC 15.1 H, Hgb 11.8 L, Hct 35.2 L, Plt Count 272 Medications List Reviewed: Yes Assessment And Plan - Current Problems (Diagnosis) (1) Right flank pain Current Visit: Yes Status: Acute Plan: Right Flank Pain most likely 2.2 to Pyelonephritis versus hydronephrosis. Now resolved -on IV rocephin for now -US renal - Consistent with Hydronephrosis -Most Likely physiologic 2.2 to . -Hitchcock catheter placed. Following insertion sediment drainage noted -Urine culture negative for growth thus far. Repeat culture sent to the lab -Past H/o ESBL treatment with Meropenum recently for 2 weeks -Will f.u with Results (2) Nausea & vomiting Current Visit: Yes Status: Resolved Plan: IV zofran for now Qualifiers: Vomiting type: cyclical vomiting Vomiting Intractability: non-intractable Qualified Code(s): G43.A0 - Cyclical vomiting, not intractable (3) 24 weeks gestation of Current Visit: Yes Status: Chronic Plan: OBGYN primary on the case. - Plan Pending clinical improvement at this time. Awaiting urine culture results. Will continue with IV Rocephin for next 24 hr. If the repeat urine culture negative then will discharge patient home. If positive will transition antibiotics according to the sensitivities. Discharge Plan: Home Plan to discharge in: 48 Hours - Code Status/Comfort Care Code Status Assessed: Yes Critical Care: No
[2018-04-11] MEDS ORDERED: ACETAMINOPHEN 325 MG TABLET PO PRN (12:03)
[2018-04-11] MEDS ORDERED: ACETAMINOPHEN 325 MG TABLET ONE (12:14)
== END 2018-04-11 18:20 | disposition home or self-care (01) | DRG 833 ==
LOC: 2ND-WC 09:53 → OBSVTOIN 09:53
PROVIDERS: ADMIT Student in an Organized Health Care Education/Training Program; ATTEND Student in an Organized Health Care Education/Training Program
DX: O23.02 Infections of kidney in pregnancy, second trimester (principal); Z3A.24 24 weeks gestation of pregnancy; O99.283 Endocrine, nutritional and metabolic diseases complicating pregnancy, third trimester; E03.9 Hypothyroidism, unspecified
CPT/HCPCS: 36415; 76770; 76805; 80053; 81001; 82150; 83690; 85025; 87040; 87086; 87088; J0696; J2175; J2405; J2765

== ENCOUNTER 2018-07-21 05:30 | Inpatient (IN) | payer OTHER ==
[2018-07-21] MEDS ORDERED: METHYLERGONOVINE 0.2MG/ML AMP IM PRN (07:14)
[2018-07-21] MEDS ORDERED: CARBOPROST TROME 250 MCG/ML IM PRN (07:14)
[2018-07-21] MEDS ORDERED: Ringers Lactate 1,000 ML IV PRN (07:14)
--- OUTSIDE RECORDS SUMMARY | 2018-07-21 07:17 | XMS REPORT ---
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 Problem Other specified related O26.899 Active conditions, unspecified trimester Problem High-risk in second O09.92 Active trimester Problem Renal calculi N20.0 Active Assessment Supervision of high risk O09.93 Active in third trimester Assessment Other specified related O26.899 Active conditions, unspecified trimester Assessment Endocrine, nutritional and O99.281 Active metabolic diseases complicating , first trimester Problem Encounter for supervision of normal Z34.02 Active first in second trimester Problem Endocrine, nutritional and O99.282 Active metabolic diseases complicating , second trimester Problem Endocrine, nutritional and O99.281 Active metabolic diseases complicating , first trimester Problem Pyelonephritis affecting O23.02 Active in second trimester Problem Hypothyroidism, unspecified E03.9 Active Problem Bacterial infection, unspecified A49.9 Active Medications Medication Code Code Instructions Start End Status Dosage System Date Date Breast Pump [facility] 89475837052 - May 21, Active as directed 2018 Diclegis [facility] 73281992538 10-10 MG Orally Jan 14, Active 2 tablets once a day 2017 at bedtime on an empty stomach Macrobid [facility] 90820246403 100 MG Orally Apr 03Dec Active 1 capsule daily 2017, with food 2018 CitraNatal [facility] 66820965767 27-1-260 MG Mar 10, Active 1 capsule [place] Orally Once a 2018 day Synthroid ND 65165576181 175 MCG Orally Active 1 tablet on Once a day an empty stomach in the morning Results No Known Results Summary Purpose [employer]ClinicalWorks Submission
--- OUTSIDE RECORDS SUMMARY | 2018-07-21 07:17 | XMS REPORT ---
:1990 Author Organization [employer] Care Team Providers Name Role Phone FreddybetsyPanfilo Provider Role Unavailable Allergies No Known Allergies [...] Start End Status Dosage System Date Date CitraNatal [facility] 60741685751 27-1-260 MG Mar 10, Active 1 capsule [place] Orally Once a 2017 day Diclegis [facility] 09885754092 10-10 MG Orally Jan 14, Active 2 tablets once a day 2018 at bedtime on an empty stomach Macrobid ND 90850925726 100 MG Orally Apr 03Dec Active 1 capsule daily 2017, with food 2018 Breast Pump [facility] 00302664944 - May 21, Active as directed 2019 Synthroid ND 71071553139 175 MCG Orally Active 1 tablet on Once a day an empty stomach in the morning Results No Known Results Summary Purpose [employer]ClinicalWorks Submission
--- OUTSIDE RECORDS SUMMARY | 2018-07-21 07:17 | XMS REPORT ---
:1990 Author Organization e[employer]Works Care Team Providers Name Role Phone Panfilo Fonseca Provider Role Unavailable Allergies No Known Allergies [...] End Status Dosage System Date Date CitraNatal [facility] 87324122335 27-1-260 MG Mar 10, Active 1 capsule [place] Orally Once a 2017 day Breast Pump [facility] 14442664649 - May 21, Active as directed 2019 Synthroid [facility] 24272030439 175 MCG Orally Active 1 tablet on Once a day an empty stomach in the morning Diclegis [facility] 59161967232 10-10 MG Orally Jan 14, Active 2 tablets once a day 2018 at bedtime on an empty stomach Macrobid [facility] 15551150871 100 MG Orally Apr 03Dec Active 1 capsule daily 2017, with food 2019 Results No Known Results Summary Purpose [employer]ClinicalWorks Submission
--- OUTSIDE RECORDS SUMMARY | 2018-07-21 07:17 | XMS REPORT ---
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 Problem Renal calculi N20.0 Active Problem Extended spectrum beta lactamase Z16.12 Active (ESBL) resistance Problem Endocrine, nutritional and O99.282 Active metabolic diseases complicating , second trimester Problem Other specified related O26.899 Active conditions, unspecified trimester Problem Unspecified abdominal pain R10.9 Active Assessment Renal calculi N20.0 Active Assessment related renal disease in O26.832 Active second trimester Assessment Endocrine, nutritional and O99.282 Active metabolic diseases complicating , second trimester Assessment Extended spectrum beta lactamase Z16.12 Active (ESBL) resistance Problem Hypothyroidism, unspecified E03.9 Active Assessment Pyelonephritis affecting O23.02 Active in second trimester Problem Endocrine, nutritional and O99.281 Active metabolic diseases complicating , first trimester Assessment High-risk in second O09.92 Active trimester Problem Encounter for supervision of normal Z34.02 Active first in second trimester Medications Medication Code Code Instructions Start End Status Dosage System Date Date CitraNatal [facility] 38118989056 27-1-260 MG Mar 10, Active 1 capsule [place] Orally Once a 2017 day Macrobid [facility] 44622061397 100 MG Orally Apr 03Dec Active 1 capsule daily 2017, with food 2018 Diclegis [facility] 04821938141 10-10 MG Orally Jan 14, Active 2 tablets once a day 2018 at bedtime on an empty stomach Synthroid [facility] 77134646812 175 MCG Orally Active 1 tablet Once a day on an empty stomach in the morning Results No Known Results Summary Purpose eClinicalWorks Submission
--- OUTSIDE RECORDS SUMMARY | 2018-07-21 07:17 | XMS REPORT ---
[...] Start End Status Dosage System Date Date Diclegis [facility] 78382975741 10-10 MG Orally Jan 14, Active 2 tablets once a day 2017 at bedtime on an empty stomach Breast Pump [facility] 01999223831 - May 21, Active as directed 2019 CitraNatal [facility] 47715457850 27-1-260 MG Mar 10, Active 1 capsule [place] Orally Once a 2018 day Synthroid [facility] 82950079993 175 MCG Orally Active 1 tablet on Once a day an empty stomach in the morning Macrobid [facility] 48151836983 100 MG Orally Apr 03Dec Active 1 capsule daily 2017, with food 2019 Results No Known Results Summary Purpose eClinicalWorks Submission
--- OUTSIDE RECORDS SUMMARY | 2018-07-21 07:17 | XMS REPORT ---
[...] Start End Status Dosage System Date Date Macrobid [facility] [place] 02060547648 100 MG Orally Apr 03Dec Active 1 capsule daily 2017, with food 2018 Diclegis [facility] [place] 2[place] 32491077688 10-10 MG Orally Jan 14, Active 2 tablets once a day 2018 at bedtime on an empty stomach CitraNatal [facility] [place] 2[place] 54902047133 27-1-260 MG Mar 10, Active 1 capsule [place] Orally Once a 2018 day Synthroid [facility] [place] 2[place] 11974023603 175 MCG Orally Active 1 tablet Once a day on an empty stomach in the morning Results No Known Results Summary Purpose eClinicalWorks Submission
--- OUTSIDE RECORDS SUMMARY | 2018-07-21 07:17 | XMS REPORT ---
:1990 Author Organization eClinicalWorks Care Team Providers Name Role Phone Panfilo Fonseca Provider Role Unavailable Allergies No Known Allergies Problems Problem Type Condition Code Onset Dates Condition Status Problem Endocrine, nutritional and O99.281 Active metabolic diseases complicating , first trimester Problem Encounter for supervision of normal Z34.02 Active first in second trimester Problem Hypothyroidism, unspecified E03.9 Active Assessment Supervision of high risk O09.92 Active in second trimester Problem Unspecified abdominal pain R10.9 Active Problem Extended spectrum beta lactamase Z16.12 Active (ESBL) resistance Problem Other specified related O26.899 Active conditions, unspecified trimester Problem Bacterial infection, unspecified A49.9 Active Problem Pyelonephritis affecting O23.02 Active in second trimester Problem Endocrine, nutritional and O99.282 Active metabolic diseases complicating , second trimester Problem Supervision of high risk O09.92 Active in second trimester Medications No Known Medications Results No Known Results Summary Purpose [employer] Submission
--- OUTSIDE RECORDS SUMMARY | 2018-07-21 07:17 | XMS REPORT ---
:1990 Author Organization eClinicalWorks Care Team Providers Name Role Phone Panfilo Fonseca Provider Role Unavailable Allergies No Known Allergies Problems Problem Type Condition Code Onset Dates Condition Status Problem Bacterial infection, unspecified A49.9 Active Problem Extended spectrum beta lactamase Z16.12 Active (ESBL) resistance Problem Supervision of high risk O09.92 Active in second trimester Problem Encounter for supervision of normal Z34.03 Active first in third trimester Problem Renal calculi N20.0 Active Problem Need for Tdap vaccination Z23 Active Problem Other specified related O26.899 Active conditions, unspecified trimester Problem Unspecified abdominal pain R10.9 Active Problem High-risk in second O09.92 Active trimester 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 Assessment Need for Tdap vaccination Z23 Active Assessment Encounter for supervision of normal Z34.03 Active first in third trimester Problem Hypothyroidism, unspecified E03.9 Active Problem Encounter for supervision of normal Z34.02 Active first in second trimester Problem Pyelonephritis affecting O23.02 Active in second trimester Problem Endocrine, nutritional and O99.281 Active metabolic diseases complicating , first trimester Problem Endocrine, nutritional and O99.282 Active metabolic diseases complicating , second trimester Medications Medication Code Code Instructions Start End Status Dosage System Date Date CitraNatal [facility] 10848386328 27-1-260 MG Mar 10, Active 1 capsule [place] Orally Once a 2017 day Diclegis [facility] 38620596648 10-10 MG Orally Jan 14, Active 2 tablets once a day 2018 at bedtime on an empty stomach Synthroid [facility] 86054788052 175 MCG Orally Active 1 tablet on Once a day an empty stomach in the morning Breast Pump ND [id number] - May 21, Active as directed 2019 Macrobid [facility] 53437908547 100 MG Orally Apr 03, Dec Active 1 capsule daily 2017 23, with food 2018 Results No Known Results Summary Purpose eClinicalWorks Submission
--- OUTSIDE RECORDS SUMMARY | 2018-07-21 07:17 | XMS REPORT | Clinical Summary ---
:1990 Author Organization [employer] Address [address] [place] [address] Care Team Providers Name Role Phone Alvarez Butts MD Primary Care Provider Allergies No Known Allergies Medications Medication Sig Dispensed Refills Start Date End Date Status levothyroxine Take 200 mcg by 0 Active (SYNTHROID, LEVOXYL) 200 mouth every mcg tablet morning. nitrofurantoin, Take by mouth 2 0 Active macrocrystal-monohydrate (two) times a , (MACROBID) 100 MG day. capsule Active Problems No known active problems Encounters Date Type Specialty Care Team Description 04/22/2018 Office Visit Urology Jeanie Rice Hydronephrosis, bilateral ( Primary Dx); MD Andrew Recurrent UTI; Flank pain after 07/20/2017 Family History Relation Name Status Comments Father Alive Mother Alive Social History Tobacco Use Types Packs/Day Years Used Date Never Smoker Smokeless Tobacco: Never Used Sex Assigned at Date Recorded Not on file Job Start Date Occupation Industry Not on file Not on file Not on file Travel History Travel Start Travel End No recent travel history available. 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 after 07/20/2017 Results POC urinalysis dipstick (04/22/2018 3:27 PM AMBULANCE OPERATIONS SUPERVISOR) Color urine, POC Yellow Clarity urine, POC Clear Glucose urine, POC Negative Negative Bilirubin urine, POC Negative Negative Ketones urine, POC Negative Negative Specific gravity urine, POC 1.020 1.005 - 1.030 Blood urine, POC Moderate (A) Negative pH urine, POC 7.5 5.0, 5.5, 6.0, 6.5, 7.0, 7.5, 8.0, 8.5 Protein urine, POC Negative Negative Urobilinogen urine, POC <2.0 <2.0 Nitrite urine, POC Negative Negative Leukocyte esterase urine, POC Negative Negative Specimen Urine after 07/20/2017 Insurance Payer Benefit Plan / Group Subscriber ID Type Phone Address [facility] OPEN ACCESS/NETWORK xxxxxxxxxxx HMO ([place]) [place] [address] Advance Directives Patient has advance care planning documents on file. For more information, please contact:Louis [address] [place] [address]
--- OUTSIDE RECORDS SUMMARY | 2018-07-21 07:17 | XMS REPORT ---
[...] Problem Unspecified abdominal pain R10.9 Active Problem Hypothyroidism, unspecified E03.9 Active Problem Endocrine, nutritional and O99.281 Active metabolic diseases complicating , first trimester Assessment Elevated glucose tolerance test R73.09 Active Problem Encounter for supervision of normal Z34.02 Active first in second trimester Medications No Known Medications Results No Known Results Summary Purpose eClinicalWorks Submission
--- OUTSIDE RECORDS SUMMARY | 2018-07-21 07:17 | XMS REPORT ---
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 (ESBL) resistance Problem Other specified related O26.899 Active conditions, unspecified trimester Problem Bacterial infection, unspecified A49.9 Active Problem Pyelonephritis affecting O23.02 Active in second trimester Problem Endocrine, nutritional and O99.282 Active metabolic diseases complicating , second trimester Problem Supervision of high risk O09.92 Active in second trimester Medications Medication Code System Code Instructions Start End Date Status Dosage Date Macrobid [facility] 48099308823 100 MG Orally Apr 03, Dec 29, Active 1 capsule daily 2017 2018 with food Results No Known Results Summary Purpose eClinicalWorks Submission
--- OUTSIDE RECORDS SUMMARY | 2018-07-21 07:18 | XMS REPORT ---
[...] End Status Dosage System Date Date CitraNatal [facility] 43862504163 27-1-260 MG Mar 10, Active 1 capsule [place] Orally Once a 2017 day Diclegis [facility] 83916700757 10-10 MG Orally Jan 14, Active 2 tablets once a day 2018 at bedtime on an empty stomach Breast Pump [facility] 85020740350 - May 21, Active as directed 2019 Macrobid [facility] 65260487539 100 MG Orally Apr 03Dec Active 1 capsule daily 2017, with food 2018 Synthroid [facility] 62835057507 175 MCG Orally Active 1 tablet on Once a day an empty stomach in the morning Results No Known Results Summary Purpose eClinicalWorks Submission
--- OUTSIDE RECORDS SUMMARY | 2018-07-21 07:18 | XMS REPORT ---
[...] Active trimester Problem Renal calculi N20.0 Active Problem Encounter for supervision of normal Z34.02 Active first in second trimester Problem Endocrine, nutritional and O99.282 Active metabolic diseases complicating , second trimester Problem Endocrine, nutritional and O99.281 Active metabolic diseases complicating , first trimester Problem Pyelonephritis affecting O23.02 Active in second trimester Problem Hypothyroidism, unspecified E03.9 Active Problem Bacterial infection, unspecified A49.9 Active Medications No Known Medications Results No Known Results Summary Purpose eClinicalWorks Submission
[2018-07-21 07:37] VITALS: BMI 35.1
[2018-07-21] MEDS ORDERED: FENTANYL CITR 100 MCG/2 ML IV ONE (07:44)
[2018-07-21] MEDS ORDERED: ROPIVACAINE HCL 100 ML IV PRN (07:44)
[2018-07-21] MEDS ORDERED: ROPIVACAINE HCL 0.2% 20ML AMP IV ONE (07:46)
[2018-07-21] MEDS ORDERED: OXYTOCIN/LR 20 UNIT/1,000 ML BAG IV SCH (08:00)
[2018-07-21] MEDS ORDERED: Ringers Lactate 1,000 ML IV SCH (08:00)
[2018-07-21 08:11] LABS: RPR Titer ND
[2018-07-21 08:16] LABS: Absolute Lymphocytes (CBC) 1.5 K/uL (0.7-4.9); Absolute Monocytes 0.4 K/uL (0.1-1.3); Absolute Neutrophil 5.2 K/uL (1.8-8.0); Basophils % 0.4 % (0-1.3); Eosinophils % 0.8 % (0-4.4); Hematocrit 34.8 % (36.0-45.0); Lymphocytes % 21.1 % (15.3-44.8); MPV 8.7 fL (7.6-11.3); Monocytes % 6.1 % (3.3-12.3); RBC Red Blood Cell Count 4.35 M/uL (3.86-4.86)
[2018-07-21 08:44] LABS: Urine Appearance CLEAR; Urine Bilirubin NEGATIVE (NEG); Urine Blood 1+ (NEG); Urine Color YELLOW; Urine Glucose NEGATIVE (NEG); Urine Protein 2+ (NEG); Urine Specific Gravity 1.015 (1.005-1.030); Urine Urobilinogen 0.2 mg/dL (0.2-1.0)
[2018-07-21 08:52] LABS: Urine Microscopic Reflex ORDER UMIC
[2018-07-21 08:54] LABS: Urine Bacteria <20 /HPF (<20); Urine Culture Reflex Order NOT NEEDED; Urine Mucus 2+ /HPF (NONE SEEN)
--- NOTE | 2018-07-21 12:11 | P.OBGYNHP ---
Certification for Inpatient Patient admitted to: Inpatient With expected LOS: >2 Midnights Patient will require the following post-hospital care: None Practitioner: I am a practitioner with admitting privileges, knowledge of patient current condition, hospital course, and medical plan of care. Services: Services provided to patient in accordance with Admission requirements found in Title 42 Section 412.3 of the Code of Federal Regulations Patient History Date of Service: 07/21/18 Reason for admission: INDUCTION OF LABOR History of Present Illness: Patient is a 27 y/o at 39 weeks gestation who presents for induction of labor. care complicated by hypothyroidism, recurrent UTI and admission for pyelonephritis due to ESBL. Patient is doing well. GBS negative. She reports occasional contractions. Denies vaginal bleeding. She reports her mucus plug came out on Saturday. She reports movements are present. She began care with id beginning at 10 weeks gestation. She has been compliant with visits. She was hospitalized during the twice due to acute pyelonephritis. She has been recommended to stay on Macrobid for suppression however she has not been compliant with this. 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 Last ultrasound was performed last week - cephalic presentation, DAVID 9.8 cm, anterior placenta. See record for further details. Allergies No Known Allergies Allergy (Verified 07/21/18 08:16) Home Medications: Levothyroxine Sodium [Synthroid] 200 mcg PO DAILY 02/11/18 Pnv No.95/Ferrous Fum/Folic AC [ Caplet] 1 tab PO DAILY 07/21/18 - Past Medical/Surgical History Has patient received pneumonia vaccine in the past: No Diabetic: No -: hypothyroidism -: appendectomy -: eye surgerry - Family History Father -: Hypertension, Diabetes, Other (see notes) Notes: none Mother -: Hypertension Notes: none - Social History Smoking Status: Never smoker Alcohol use: No CD- Drugs: No Caffeine use: Yes Place of Residence: Home Review of Systems 10-point ROS is otherwise unremarkable Physical Examination - Vital Signs Temperature: 97.2 F Blood Pressure: 137/74 Pulse: 93 Respirations: 18 - General General: Alert, Oriented x3, Mild distress HEENT: Atraumatic Neck: Supple Respiratory: Normal air movement Cardiovascular: No edema, Normal pulses Breasts: Normal configuration, Normal contours, Symmetrical Gastrointestinal: Other (Gravid abdomen) Musculoskeletal: No clubbing, No swelling Integumentary: No rashes, No breakdown, No significant lesion Neurological: Normal gait, Normal speech - Female Pelvic External genitalia: Normal, No lesions, No masses Vagina: Normal, [place], Moist Cervix: Dilation (1-2 cm), Effacement (60%), station (-3) Uterus: Gravid Adnexa: Unable to evaluate - Obstetrics heart rate tracing: Category 2 Contractions: Frequency (Every 3-8 min) Amniotic membrane: SROM (Clear fluid) Laboratory Data (last 24 hrs) 07/21/18 07:35: WBC 7.3 D, Hgb 11.4 L, Hct 34.8 L, Plt Count 262 Assessment and Plan - Plan Patient is a 27-year-old 1 para 0 at 39 weeks gestation who presents for elective induction of labor. GBS is negative. Rupture membranes has been performed. Pitocin is being given for labor augmentation. Epidural placement at patient's request. Continuous maternal monitoring be performed. Routine intrapartum care. Discharge Plan: Home Plan to discharge in: 48 Hours - Advance Directives Does patient have a Living Will: No Does patient have a Durable POA for Healthcare: No
[2018-07-21] MEDS ORDERED: BUTORPHANOL 1 MG/ML INJ IV ONE (15:19)
[2018-07-21] MEDS ORDERED: PROMETHAZINE 25 MG/ML VIAL IV ONE (15:19)
[2018-07-21] MEDS ORDERED: FENTANYL CITR 100 MCG/2 ML ONE (19:00)
[2018-07-21] MEDS ORDERED: ROPIVACAINE HCL 20 ML ONE (19:00)
[2018-07-21] MEDS ORDERED: METOCLOPRAMIDE 10 MG/2mL INJ ONE (21:35)
[2018-07-21] MEDS ORDERED: FAMOTIDINE 20 MG/2 ML VIAL IV ONE (21:35)
[2018-07-21] MEDS ORDERED: CEFAZOLIN/SWI 2gm 2 GM/20 ML SYR ONE (21:35)
[2018-07-21] MEDS ORDERED: NA CIT/CITRIC AC 30 ML ORAL UDC ONE (21:35)
[2018-07-21] MEDS ORDERED: METHYLERGONOVINE 0.2MG/ML AMP IM ONE (21:36)
--- NOTE | 2018-07-21 21:36 | P.PN ---
Date of Service: 07/21/18 Aníbal is a 27-year-old at 39 weeks gestation who was admitted earlier this morning at 7:00 a.m. for elective induction of labor per patient's request. Patient received Pitocin and rupture of the membrane. She has been on Pitocin for labor augmentation since this morning and is currently on 26 malachi units. Patient progressed to 3 cm dilated at 1:00 p.m.. She is now currently still 3 cm dilated and it is now 9:15 p.m.. The patient is very reluctant to have a primary section performed. I reviewed with the patient that she is now or resting in labor. She also was starting to have minimal variability on the heart rate tracing. Patient is questioning whether we can wait until the baby is in distress to do section. I reviewed with the patient that the safest thing to do section prior to distressed arising. Reviewed with patient that currently heart rate variability is minimal and therefore this is a signs of possible distress. This is a category 2 tracing which is remote from delivery and therefore I recommend that she have a primary section performed at this time. Patient now verbally agrees to have section performed. Anesthesia has been notified as well as assisting physician. We will proceed with section.
[2018-07-21] MEDS ORDERED: MORPHINE SULFATE/PF 1 MG/ML (10 ML AMP) ONE (21:37)
[2018-07-21] MEDS ORDERED: LIDOCAINE 2% W/EPI 1:200,000 MPF 20 ML VIAL IM ONE (21:38)
[2018-07-21] MEDS ORDERED: ONDANSETRON 4 MG/2 ML VIAL ONE (21:38)
[2018-07-21] MEDS ORDERED: OXYTOCIN 10 UNIT/ML ML IV ONE (21:38)
[2018-07-21] MEDS ORDERED: NS 0.9% VIAL 10 ML ONE (21:39)
[2018-07-21 21:55] LABS: RPR (Rapid Plasma Reagin) NON-REACT (NON-REACT)
[2018-07-21] MEDS ORDERED: Phenylephrine HCl 10 MG/ML 1 ML VIAL ONE (22:03)
[2018-07-21] MEDS ORDERED: DOCUSATE NA/SENNA CONC 1 TAB PO PRN (22:43)
[2018-07-21] MEDS ORDERED: BISACODYL 10 MG RECTAL SUPP RECT PRN (22:43)
[2018-07-21] MEDS ORDERED: ACETAMINOPHEN 500 MG TAB PO PRN (22:43)
[2018-07-21] MEDS ORDERED: METHYLERGONOVINE 0.2 MG TAB PO PRN (22:43)
[2018-07-21] MEDS ORDERED: Oxycodone HCl/Acetaminophen 1 TAB TAB PO PRN ×2 (22:43)
[2018-07-21] MEDS ORDERED: ONDANSETRON 4 MG (ODT) TAB PO PRN (22:43)
--- NOTE | 2018-07-21 22:51 | P.OP ---
[employer] Developer: Galileo Abel Preoperative diagnosis: arrest of dilation; category II tracing remote from delivery Postoperative diagnosis: same and nuchal cord x1 Primary procedure: Primary low transverse section Anesthesia: Epidural Estimated blood loss: 800cc Specimen: cord blood, placenta Findings: male infant cephalic, nuchal cord x1 Operative Technique: INDICATIONS: The patient is a 27-year-old 1, para 0 female, who presented to labor and delivery for elective induction of labor at 39 weeks gestation. The patient progressed to 3 cm and cervical exam remained the same for 8 hours. Arrested dilation at 3 cm and heart tracing category II with minimal variability. A decision was made to proceed with a primary low transverse section. The procedure was described to the patient in detail including possible risks of bleeding, infection, injury to surrounding organs, and possible need for further surgery. Informed consent was obtained prior to proceeding with the procedure. PROCEDURE NOTE: The patient was taken to the operating room where epidural anesthesia was found to be adequate. The patient was prepped and draped in the usual sterile fashion in the dorsal supine position with a left-calvin tilt. A Pfannenstiel skin incision was made with the scalpel and carried through to the underlying layer of fascia using the Bovie. The fascia was incised in the midline and extended laterally using Mena scissors. Yamini clamps were used to elevate the superior aspect of the fascial incision, which was elevated, and the underlying rectus muscles were dissected off bluntly and using Mena scissors. Attention was then turned to the inferior aspect of the fascial incision, which in similar fashion was grasped with Yamini clamps, elevated, and the underlying rectus muscles were dissected off bluntly and using Mena scissors. The rectus muscles were dissected in the midline. The peritoneum was bluntly dissected, entered, and extended superiorly and inferiorly with good visualization of the bladder. The bladder blade was inserted. The vesicouterine peritoneum was identified with pickups and entered sharply using Metzenbaum scissors. This incision was extended laterally and the bladder flap was created digitally. The bladder blade was reinserted. The lower uterine segment was incised in a transverse fashion using the scalpel and extended using manual traction. Clear fluid was noted. The infant was subsequently delivered atraumatically using the Kiwi vacuum and nuchal cord was present x1. The nose and mouth were bulb suctioned. The cord was clamped and cut. The infant was subsequently handed to the awaiting nursery nurse. Next, cord blood was obtained. Subsequent to the collection of this blood, the placenta was removed spontaneously intact with a 3-vessel cord noted. The uterus was exteriorized and cleared of all clots and debris. The uterine incision was repaired in 2 layers using 1 vicyl suture. Hemostasis was visualized. Bladder flap was reapproximated with 3.0 vicryl. The uterus was returned to the abdomen. Gutters were cleared of clots and debris. The uterine incision was reexamined and was noted to be hemostatic. The rectus muscles were reapproximated in the midline using 0 Vicryl. The fascia was closed with 1 Vicryl, the subcutaneous layer was closed with 2-0 plain gut, and the skin was closed with 3.0 vicryl on a Carlito needle. Sponge, lap, and instrument counts were correct x2. The patient was stable at the completion of the procedure and was subsequently transferred to the recovery room in stable condition. Complications: None Drain(s): Urinary catheter Transferred to: Recovery Room Condition: Good
[2018-07-21] MEDS ORDERED: MORPHINE 4 MG/ML SYR IV PRN (22:57)
[2018-07-21] MEDS ORDERED: KETOROLAC 30 MG/ML INJ IV PRN (22:57)
[2018-07-22] MEDS ORDERED: METHYLERGONOVINE 0.2MG/ML AMP IM ONE (04:39)
[2018-07-22 04:44] LABS: Absolute Lymphocytes (CBC) 1.8 K/uL (0.7-4.9); Absolute Monocytes 0.9 K/uL (0.1-1.3); Absolute Neutrophil 9.5 K/uL (1.8-8.0); Basophils % 0.2 % (0-1.3); Eosinophils % 0.1 % (0-4.4); Hematocrit 29.4 % (36.0-45.0); Lymphocytes % 14.6 % (15.3-44.8); MPV 8.9 fL (7.6-11.3); Monocytes % 7.3 % (3.3-12.3); RBC Red Blood Cell Count 3.62 M/uL (3.86-4.86)
[2018-07-22] MEDS: IBUPROFEN 200 MG TAB PO PRN (15:15)
[2018-07-22] MEDS ORDERED: IBUPROFEN 200 MG TAB PO ONE (15:23)
[2018-07-23] MEDS: IBUPROFEN 200 MG TAB PO PRN ×2 (01:15→12:46)
[2018-07-23 16:03] VITALS: BP 134/88; TEMP 97.8
--- NOTE | 2018-07-24 15:12 | P.PN ---
Date of Service: 07/22/18 The patient is postop day 1 from a primary section. She is doing well. She is tolerating diet. Her pain is well controlled. She is afebrile. She has no complaints today she is bonding well with the baby and is breast- feeding. Vital sign stable Selected Entries 07/22/18 07/22/18 07/22/18 00:00 04:00 07:30 Temperature 98.1 F 97.0 F 98.1 F Pulse Rate 96 H 87 102 H Respiratory 18 18 18 Rate Blood Pressure 120/64 132/75 140/83 Pain Level 0 Laboratory Tests 07/21/18 07/22/18 07:35 04:06 WBC 7.3 D 12.2 H D Hgb 11.4 L 9.6 L Hct 34.8 L 29.4 L D Plt Count 262 215 General: Resting in bed no distress Head and neck: Normocephalic atraumatic, supple Respiratory: Symmetric nonlabored breathing Abdomen: Soft, mildly distended, mildly tender. Incision clean dry and intact Bilateral lower extremities: No clubbing cyanosis or edema. Assessment and plan patient is postop day 1 after repeat section she is doing well. The operative anemia will continue to monitor. Blood pressure is mildly elevated likely due to pain management will administer pain medication. Pain is well controlled. Discontinue IV discontinue Hitchcock catheter. Encourage patient to ambulate. Possible discharge home tomorrow.
--- NOTE | 2018-07-24 15:14 | P.DS ---
Admission Date: 07/21/18 Discharge Date: 07/23/18 Disposition: ROUTINE DISCHARGE Discharge Condition: GOOD Reason for Admission: INDUCTION OF LABOR Brief History of Present Illness: Patient is a 27 y/o at 39 weeks gestation who presents for induction of labor. care complicated by hypothyroidism, recurrent UTI and admission for pyelonephritis due to ESBL. Patient is doing well. GBS negative. She reports occasional contractions. Denies vaginal bleeding. She reports her mucus plug came out on Saturday. She reports movements are present. She began care with sd beginning at 10 weeks gestation. She has been compliant with visits. She was hospitalized during the twice due to acute pyelonephritis. She has been recommended to stay on Macrobid for suppression however she has not been compliant with this. 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 Last ultrasound was performed last week - cephalic presentation, DAVID 9.8 cm, anterior placenta. See record for further details. Hospital Course: Patient had arrest of labor and category 2 tracing remote from delivery. Therefore decision was made to perform primary section. Patient did well following section. She has been bonding well with her baby. She is tolerating a regular diet. She is not having much bleeding. She denies fever chills. No shortness of breath no chest pain. Vital Signs/Physical Exam: Temp Pulse Resp BP Pulse Ox 97.8 F 103 H 18 134/88 07/23/18 16:01 07/23/18 16:01 07/23/18 16:01 07/23/18 16:01 General: Alert, In no apparent distress, Oriented x3 HEENT: Atraumatic Neck: Supple Respiratory: Normal air movement Cardiovascular: No edema, Normal pulses Gastrointestinal: Other (Incision clean dry and intact) Musculoskeletal: No clubbing, No swelling Integumentary: No rashes, No breakdown Neurological: Normal gait, Normal speech Laboratory Data at Discharge: WBC 12.2 K/uL (4.3-10.9) H D 07/22/18 04:06 Hgb 9.6 g/dL (12.0-15.0) L 07/22/18 04:06 Hct 29.4 % (36.0-45.0) L D 07/22/18 04:06 Plt Count 215 K/uL (152-406) 07/22/18 04:06 Home Medications: Levothyroxine Sodium [Synthroid] 200 mcg PO DAILY 02/11/18 Pnv No.95/Ferrous Fum/Folic AC [ Caplet] 1 tab PO DAILY 07/21/18 Codeine/APAP [Tylenol W/Codeine #3 tab] 1 tab PO Q6HP PRN #24 tab 07/23/18 New Medications: Codeine/APAP [Tylenol W/Codeine #3 tab] 1 tab PO Q6HP PRN #24 tab PRN Reason: Pain Diet: Regular Activity: No lifting more than 10 lbs Followup: Panfilo Fonseca, [ACTIVE - CAN ADMIT] - (Follow up care with Dr. Fonseca in 1 week to check incision then 6 weeks for post visit.)
[2018-07-25 04:10] LABS: HBsAG Nonreactive (Nonreactive)
== END 2018-07-23 17:10 | disposition home or self-care (01) | DRG 788 ==
LOC: 2ND-WC 07:14
PROVIDERS: ADMIT Student in an Organized Health Care Education/Training Program; ATTEND Student in an Organized Health Care Education/Training Program
PROC: 10D00Z1 Extraction of Products of Conception, Low, Open Approach (ICD-10-PCS; principal; 2018-07-21)
PROC: 10907ZC Drainage of Amniotic Fluid, Therapeutic from Products of Conception, Via Natural or Artificial Opening (ICD-10-PCS; 2018-07-21)
PROC: 3E033VJ Introduction of Other Hormone into Peripheral Vein, Percutaneous Approach (ICD-10-PCS; 2018-07-21)
DX: O75.3 Other infection during labor (principal); O62.1 Secondary uterine inertia; O69.81X0 Labor and delivery complicated by cord around neck, without compression, not applicable or unspecified; O99.284 Endocrine, nutritional and metabolic diseases complicating childbirth; E03.9 Hypothyroidism, unspecified; B96.89 Other specified bacterial agents as the cause of diseases classified elsewhere; O32.1XX0 Maternal care for breech presentation, not applicable or unspecified; O66.5 Attempted application of vacuum extractor and forceps; Z3A.39 39 weeks gestation of pregnancy; Z37.0 Single live birth; Z16.12 Extended spectrum beta lactamase (ESBL) resistance
CPT/HCPCS: 36415; 81003; 81015; 85025; 86592; 86850; 86900; 86901; 87340; 88307; J0595; J0690; J2210; J2370; J2405; J2550; J2590; J2765; J2795; J3010

== ENCOUNTER 2018-11-19 16:33 | Inpatient (IN) | payer OTHER ==
--- OUTSIDE RECORDS SUMMARY | 2018-11-19 16:35 | XMS REPORT ---
[...] Medications Results No Known Results Summary Purpose [email or web address] Submission
--- OUTSIDE RECORDS SUMMARY | 2018-11-19 16:35 | XMS REPORT ---
[...] End Status Dosage System Date Date CitraNatal [facility] 00230969468 27-1-260 MG Mar 10, Active 1 capsule [place] Orally Once a 2017 day Macrobid [facility] 75283967378 100 MG Orally Apr 03Dec Active 1 capsule daily 2017, with food 2018 Diclegis [facility] 40147588568 10-10 MG Orally Jan 14, Active 2 tablets once a day 2018 at bedtime on an empty stomach Synthroid [facility] 57308579330 175 MCG Orally Active 1 tablet Once a day on an empty stomach in the morning Results No Known Results Summary Purpose eClinicalWorks Submission
--- OUTSIDE RECORDS SUMMARY | 2018-11-19 16:35 | XMS REPORT ---
[...] Start End Date Status Dosage Date Macrobid [facility] 16774425981 100 MG Orally Apr 03, Dec 29, Active 1 capsule daily 2017 2018 with food Results No Known Results Summary Purpose eClinicalWorks Submission
--- OUTSIDE RECORDS SUMMARY | 2018-11-19 16:35 | XMS REPORT ---
[...] End Status Dosage System Date Date Macrobid [facility] 50010391174 100 MG Orally Apr 03Dec Active 1 capsule daily 2017, with food 2018 Diclegis [facility] 64041113489 10-10 MG Orally Jan 14, Active 2 tablets once a day 2018 at bedtime on an empty stomach CitraNatal [facility] 79265618341 27-1-260 MG Mar 10, Active 1 capsule [place] Orally Once a 2018 day Synthroid [facility] 45148423013 175 MCG Orally Active 1 tablet Once a day on an empty stomach in the morning Results No Known Results Summary Purpose eClinicalWorks Submission
--- OUTSIDE RECORDS SUMMARY | 2018-11-19 16:35 | XMS REPORT | Clinical Summary ---
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 after 11/18/2017 Results POC urinalysis dipstick (04/22/2018 3:27 PM HYDRAULIC LIFT OPERATOR) Color urine, POC Yellow Clarity urine, POC Clear Glucose urine, POC Negative Negative Bilirubin urine, POC Negative Negative Ketones urine, POC Negative Negative Specific gravity 1.020 1.005 - 1.030 urine, POC Blood urine, POC Moderate (A) Negative pH urine, POC 7.5 5.0, 5.5, 6.0, 6.5, 7.0, 7.5, 8.0, 8.5 Protein urine, POC Negative Negative Urobilinogen urine, <2.0 <2.0 POC Nitrite urine, POC Negative Negative Leukocyte esterase Negative Negative urine, POC Specimen Urine after 11/18/2017 ([place]) [place] [address] Advance Directives Patient has advance care planning documents on file. For more information, please contact:Louis Matute[address] [place] [address]
--- OUTSIDE RECORDS SUMMARY | 2018-11-19 16:36 | XMS REPORT ---
[...] End Status Dosage System Date Date CitraNatal [facility] 86520983142 27-1-260 MG Mar 10, Active 1 capsule [place] Orally Once a [address] [facility] 20521218643 10-10 MG Orally Jan 14, Active 2 tablets once a day 2018 at bedtime on an empty stomach Macrobid [place] 31030210654 100 MG Orally Apr 03Dec Active 1 capsule daily 2017, with food [address] [facility] 31821486463 - May 21, Active as directed 2019 Synthroid ND 76830490229 175 MCG Orally Active 1 tablet on Once a day an empty stomach in the morning Results No Known Results Summary Purpose eClinicalWorks Submission
--- OUTSIDE RECORDS SUMMARY | 2018-11-19 16:36 | XMS REPORT ---
[...] Status Dosage System Date Date Breast Pump [facility] [place] [facility] [id number] - May 21, Active as directed 2018 Diclegis [facility] [place] 2[place] 02144743615 10-10 MG Orally Jan 14, Active 2 tablets once a day 2017 at bedtime on an empty stomach Macrobid [facility] [place] 2[place] 88623949580 100 MG Orally Apr 03Dec Active 1 capsule daily 2017, with food 2018 CitraNatal [facility] [place] 2[facility] 67378335329 27-1-260 MG Mar 10, Active 1 capsule [place] Orally Once a 2018 day Synthroid ND 32940859010 175 MCG Orally Active 1 tablet on Once a day an empty stomach in the morning Results No Known Results Summary Purpose eClinicalWorks Submission
--- OUTSIDE RECORDS SUMMARY | 2018-11-19 16:36 | XMS REPORT ---
[...] End Status Dosage System Date Date Diclegis [facility] 78819109522 10-10 MG Orally Jan 14, Active 2 tablets once a day 2017 at bedtime on an empty stomach Breast Pump [facility] NAM[facility] 30671683225 - May 21, Active as directed 2019 CitraNatal [facility] 00243175278 27-1-260 MG Mar 10, Active 1 capsule [place] Orally Once a 2018 day Synthroid [facility] 43092362044 175 MCG Orally Active 1 tablet on Once a day an empty stomach in the morning Macrobid [facility] 08026504474 100 MG Orally Apr 03Dec Active 1 capsule daily 2017, with food 2019 Results No Known Results Summary Purpose eClinicalWorks Submission
--- OUTSIDE RECORDS SUMMARY | 2018-11-19 16:36 | XMS REPORT ---
[...] End Status Dosage System Date Date CitraNatal [facility] 76792677651 27-1-260 MG Mar 10, Active 1 capsule [place] Orally Once a 2017 day Breast Pump [facility] 24197737974 - May 21, Active as directed 2019 Synthroid [facility] 42109538057 175 MCG Orally Active 1 tablet on Once a day an empty stomach in the morning Diclegis [facility] 98768685378 10-10 MG Orally Jan 14, Active 2 tablets once a day 2018 at bedtime on an empty stomach Macrobid [facility] 17790380860 100 MG Orally Apr 03Dec Active 1 capsule daily 2017, with food 2019 Results No Known Results Summary Purpose eClinicalWorks Submission
--- OUTSIDE RECORDS SUMMARY | 2018-11-19 16:36 | XMS REPORT ---
:1990 Author Organization eClinicalWorks Care Team Providers Name Role Phone Panfilo Fonseca Provider Role Unavailable Allergies, Adverse Reactions, Alerts Substance Reaction Event Type N.K.D.A. Info Not Available Non Drug Allergy Problems Problem Type Condition Code Onset Dates [...] trimester Problem Renal calculi N20.0 Active Assessment History of delivery Z98.891 Active Assessment Postop check Z09 Active Problem Encounter for supervision of normal [...] End Status Dosage System Date Date Macrobid [facility] 89164740550 100 MG Orally Apr 03Dec Active 1 capsule daily 2017, with food 2018 Diclegis [facility] 67190934066 10-10 MG Orally Jan 14, Active 2 tablets once a day 2018 at bedtime on an empty stomach CitraNatal [facility] 55322252254 27-1-260 MG Mar 10, Active 1 capsule [place] Orally Once a 2018 day Breast Pump ND 08961590832 - May 21, Active as directed 2019 Synthroid [facility] 09642051066 175 MCG Orally Active 1 tablet on Once a day an empty stomach in the morning Results No Known Results Summary Purpose eClinicalWorks Submission
--- OUTSIDE RECORDS SUMMARY | 2018-11-19 16:36 | XMS REPORT ---
[...] Status Dosage System Date Date CitraNatal [facility] 49756262300 27-1-260 MG Mar 10, Active 1 capsule [place] Orally Once a 2017 day Diclegis [facility] 27031979268 10-10 MG Orally Jan 14, Active 2 tablets once a day 2018 at bedtime on an empty stomach Synthroid [facility] 17492056357 175 MCG Orally Active 1 tablet on Once a day an empty stomach in the morning Breast Pump ND 95890073553 - May 21, Active as directed 2019 Macrobid [facility] 57111026394 100 MG Orally Apr 03, Dec Active 1 capsule daily 2017 23, with food 2018 Results No Known Results Summary Purpose eClinicalWorks Submission
--- OUTSIDE RECORDS SUMMARY | 2018-11-19 16:36 | XMS REPORT ---
[...] End Status Dosage System Date Date CitraNatal [facility] 27462405102 27-1-260 MG Mar 10, Active 1 capsule [place] Orally Once a 2017 day Diclegis [facility] 51072711272 10-10 MG Orally Jan 14, Active 2 tablets once a day 2018 at bedtime on an empty stomach Breast Pump [facility] 77651553763 - May 21, Active as directed 2019 Macrobid [facility] 36918173101 100 MG Orally Apr 03Dec Active 1 capsule daily 2017, with food 2018 Synthroid [facility] 43608193343 175 MCG Orally Active 1 tablet on Once a day an empty stomach in the morning Results No Known Results Summary Purpose eClinicalWorks Submission
[2018-11-19 17:21] LABS: Absolute Lymphocytes (CBC) 1.4 K/uL (0.7-4.9); Basophils % 0.7 % (0-1.3); Hematocrit 38.5 % (36.0-45.0); Lymphocytes % 13.6 % (15.3-44.8); MPV 8.4 fL (7.6-11.3); RBC Red Blood Cell Count 4.69 M/uL (3.86-4.86)
[2018-11-19] MEDS: CIPROFLOXACIN 400mg IV 400 MG/200 ML BAG IV SCH (17:30)
[2018-11-19] MEDS: ENOXAPARIN 30 MG/0.3 ML SQ SCH (17:30)
[2018-11-19] MEDS: CEFTRIAXONE/SWI 1gm 1 GM/10 ML SYR IVP SCH (17:30)
[2018-11-19 17:37] LABS: BUN Blood Urea Nitrogen 10 mg/dL (7-18); Bicarbonate 25 mmol/L (21-32); Glucose Level 97 mg/dL (74-106); Magnesium 1.9 mg/dL (1.8-2.4); Potassium 3.4 mmol/L (3.5-5.1); Sodium Level 136 mmol/L (136-145)
[2018-11-19 18:12] VITALS: BMI 29.7
[2018-11-19] MEDS ORDERED: POTASSIUM CL SA 10 MEQ TAB PO ONE (19:49)
[2018-11-19] MEDS: NA CHLORIDE 0.9% 1,000 ML IV SCH (22:00)
--- NOTE | 2018-11-20 04:00 | HP ---
Date of Admission: 11/19/2018 Chief Complaint: Fever, chills, back pain. History Of Present Illness: This is a 27-year-old very pleasant female patient who has history of pyelonephritis during her ; after that, she has not had any problems. She has a 4-month-old baby and her last menstrual cycle was on October 20, 2018. She came into my office yesterday with concerns about kidney infection with her mother and reported having fever, chills, body aches, cloudy urine that has a strong odor and right posterior flank pain that started as of 11/17/2018. Denies any vomiting, diarrhea. The patient requested that she really does not want to go to the hospital unless she absolutely has to, so we did order stat CBC, Chem profile, lactic acid level, procalcitonin, urinalysis, blood culture, and urine culture. CBC, chemistry profile, lactic acid, and procalcitonin level results were unremarkable. Urinalysis was abnormal consistent with urinary tract infection. She was started on empiric antibiotics , Cipro. Hemodynamically, she was stable. Today, microbiology lab called and informed me that the patient's blood culture is growing gram-negative rods. So soon after that result was available to me, I contacted the patient and details were discussed with her. She is feeling better today than yesterday. She started her Cipro because of this positive blood culture with concerns about sepsis. It was recommended her to get admitted to the hospital for IV antibiotics, IV fluids, and to wait for urine culture results. Once we get the final report, then we decide whether she can go home with oral antibiotics or IV antibiotics. Arrangements were completed and patient was admitted to the hospital. I saw her this evening in hospital and overall she feels better but continues to have right posterior flank pain. No new complaints reported between yesterday and today. Allergies: NO KNOWN ALLERGIES. Medication: Levothyroxine 150 mcg p.o. daily. Review of Systems: Genitourinary: As mentioned above. Constitutional: As mentioned above. All other systems reviewed and negative. Past Medical History: Known alcoholic fatty liver disease, hypothyroidism, and anxiety. Past Surgical History: Appendectomy and eye surgery for strabismus. Family History: Mother with hyperlipidemia. Social History: Negative for smoking and negative for alcohol use. Physical Examination: Vital Signs: Temperature 98.4, pulse 129, respiratory rate 20, blood pressure 119/76, oxygen saturation 100% on room air, height 4 feet 11 inches, weight 147 pounds. General: Awake, alert, oriented, not in distress. HEENT: Head atraumatic, normocephalic. Conjunctivae nonerythematous. Sclerae white. Mouth, no thrush or edema noted. Ears/Nose, no mass, lesion, discharge noted. Neck: Supple. No JVD, lymph nodes, bruit, thyromegaly noted. Lungs: Bilateral good equal air entry. Clear to auscultation. No rhonchi. No rales. Heart: Normal heart sounds, no murmur or gallop. Abdomen: Soft, bowel sounds normal. No guarding, rigidity, tenderness, mass, hepatosplenomegaly, distention, or bruit noted. Extremities: No leg edema. No calf tenderness. Skin: No rash, ulcer, cellulitis. Lymphatics: No lymph node enlargement in neck, supraclavicular, infraclavicular region. Neuro: No focal neurological deficit. Chest: Unremarkable. External Genitalia: Deferred. Rectal: Deferred. Laboratory Data: Yesterday's urinalysis results reviewed and it is abnormal and consistent with urinary tract infection. Urine culture is growing gram- negative rods. Blood culture growing gram-negative rods. White count today 10.7, hemoglobin 12.5, platelets 241. Sodium 136, potassium 3.4, chloride 103, bicarb 25, BUN 10, creatinine 0.48, glucose 97, procalcitonin today 0.06, magnesium 1.9. Impression: 1. Sepsis, organism gram-negative rods. 2. Acute pyelonephritis. 3. Hypothyroidism. 4. Nonalcoholic fatty liver disease. 5. Hypokalemia. Plan: Admit the patient to hospital for further evaluation and management of this problem. The patient is appropriate for inpatient and is expected to spend 2 midnights in the hospital. The patient's urine test was done yesterday and it was negative. We will go ahead and start empiric antibiotics, Cipro will be continued, add ceftriaxone. DVT prophylaxis will be given using Lovenox per order. I will see her tomorrow for followup. We will follow up on culture results; once we get the final report back, then we will decide about culture specific antibiotics. We would like to give her at least a few days of IV antibiotic in the hospital. Details and plan of treatment discussed with her. MICHELLE/MAEVE Voice ID: [id number] MTDNéstor
[2018-11-20 04:07] VITALS: O2SAT 98
[2018-11-20] MEDS: LEVOTHYROXINE SOD 0.05 MG TABLET PO SCH (05:35)
[2018-11-20] MEDS: LEVOTHYROXINE SOD 0.1 MG TAB PO SCH (05:35)
[2018-11-20] MEDS: CEFTRIAXONE/SWI 1gm 1 GM/10 ML SYR IVP SCH ×2 (09:04→20:34)
[2018-11-20] MEDS: ENOXAPARIN 30 MG/0.3 ML SQ SCH (09:04)
[2018-11-20] MEDS: CIPROFLOXACIN 400mg IV 400 MG/200 ML BAG IV SCH ×2 (09:05→20:34)
--- NOTE | 2018-11-20 11:15 | RAD REPORT ---
EXAM DESCRIPTION: US - Renal Ultrasound-Complete - 11/20/2018 10:56 am CLINICAL HISTORY: Sepsis, pyelonephritis COMPARISON: Renal ultrasound April 2018 FINDINGS: The right kidney measures 11.9 x 4.9 x 5.3 cm. The left kidney measures 12.6 x 5.5 x 5.4 cm. Renal cortical thickness is normal. Increased renal cortical echogenicity is present which could be medical renal disease, body habitus artifact or a combination. No solid mass lesion of either kidn ey. Adjusting for technique differences, there has been no change in the size of the kidneys since [facility]. Mild to moderate bilateral hydronephrosis and proximal hydroureter noted. Distal ureters could not be visualized due to bowel. Degree of hydronephrosis not clearly different from April. Bladder is evaluated on separate report. IMPRESSION: Mild to moderate bilateral hydronephrosis and proximal hydroureter are not clearly diffe rent from April 2018. No solid mass lesion of either kidney. Increased cortical echogenicity could be medical renal disease , body habitus artifact or a combination.
--- NOTE | 2018-11-20 11:16 | RAD REPORT ---
EXAM DESCRIPTION: US - Urinary Bladder - 11/20/2018 10:57 am CLINICAL HISTORY: Pyelonephritis, sepsis COMPARISON: None. FINDINGS: No urinary bladder wall thickening or mass. No stone or other intraluminal filling defects seen. Uterus and ovaries are grossly normal on limited assessment. No free fluid seen. No mass or ab normality adjacent to the bladder. IMPRESSION: Negative bladder ultrasound.
[2018-11-20] MEDS: NA CHLORIDE 0.9% 1,000 ML IV SCH ×2 (11:20→13:10)
--- NOTE | 2018-11-20 15:01 | RAD REPORT ---
EXAM DESCRIPTION: CT - Stone Protocol - 11/20/2018 2:25 pm CLINICAL HISTORY: Bilateral hydronephrosis, bilateral flank pain COMPARISON: Ultrasound studies November 20, 2018 and April 2018 TECHNIQUE: Axial 5 mm thick images were obtained without oral or IV contrast. The [id number] span s the entirety of the system including uppermost abdomen and lung bases. All CT scans are performed using dose optimization technique as appropriate and may include automated exposure control or mA/KV adjustment according to patient size. FINDINGS: The bilateral hydronephrosis seen on the ultrasound done earlier in the day is absent or m uch less prominent on the current examination. On the ultrasound study, the urinary bladder was quite full. On the CT study of the urinary bladder is decompressed. The hydronephrosis may be functional d ue to large bladder volume and/or incompetent ureterovesical junction. Patient has a 5 millimeter non obstructing calyx calcification in the lower pole on the right and a 1 millimeter calyx calcification upper pole on the left. No perinephric stranding. No significant adrenal finding. Imaged portions of the liver, spleen and pancreas show no suspicious findings on non-contrast imaging . Gallbladder is contracted. No suspicious bowel findings. Uterus and ovaries show no suspicious findings. No hernia, mass or bulky lymphadenopathy noted. No free air, free fluid or inflammatory stranding. No significant bony abnormality. Lowest lumbar level is partially sacralized. IMPRESSION: On the CT study the hydronephrosis seen at sonography is much less pronounced or absent. Sonography was performed with the urinary bladder full while the bladder was contracted on the CT zaheer dy. This would indicate that the hydronephrosis is functional due to large bladder volume and/or inco mpetent ureterovesical junctions. Bilateral nonobstructing calyx calculi. No acute GI or [employer] process. Solid abdominal viscera and gallbladder are unremarkable. Isodense masses and pyelonephritis are not excluded on stone protocol technique.
--- NOTE | 2018-11-21 01:27 | PN ---
Date of Progress Note: 11/20/2018 Subjective: Patient was seen this morning for followup. No new complaints or problems reported by h er. Overall, she feels better this morning compared to yesterday. No nausea. No vomiting. No shor tness of breath. Objective: Vital Signs: Reviewed. Tachycardia has resolved. HEENT: Unremarkable. Lungs: Clear to auscultation. Heart: Sounds normal. Abdomen: Soft, bowel sounds normal. No guarding, rigidity, or distention. Extremities: No leg edema. Laboratory Data: Urine culture growing klebsiella and it is sensitive to Cipro and multiple other an tibiotics. Impression: 1.Sepsis. 2.Acute pyelonephritis, organism klebsiella. 3.Hypothyroidism. Plan: We will continue current antibiotic, IV fluid. Renal ultrasound and bladder ultrasound were d one after I saw the patient today, and it shows bilateral hydronephrosis and hydroureter. There is n o evidence of any mass or stone. We will go ahead and get a CAT scan of abdomen per kidney stone pro tocol, and I will see her tomorrow for followup. I have advised the patient to follow up with the ur ologist on outpatient basis and she will contact my office if she needs help to schedule appointment with the urologist of her choice. MICHELLE/MODL Voice ID: [id number] Report ID: [id number]
[2018-11-21] MEDS: NA CHLORIDE 0.9% 1,000 ML IV SCH (06:07)
[2018-11-21] MEDS: LEVOTHYROXINE SOD 0.05 MG TABLET PO SCH (06:08)
[2018-11-21] MEDS: LEVOTHYROXINE SOD 0.1 MG TAB PO SCH (06:08)
[2018-11-21 06:13] LABS: Absolute Lymphocytes (CBC) 1.9 K/uL (0.7-4.9); Basophils % 0.6 % (0-1.3); Hematocrit 33.2 % (36.0-45.0); Lymphocytes % 29.1 % (15.3-44.8); MPV 8.2 fL (7.6-11.3); RBC Red Blood Cell Count 4.04 M/uL (3.86-4.86)
[2018-11-21 06:36] LABS: BUN Blood Urea Nitrogen 12 mg/dL (7-18); Bicarbonate 24 mmol/L (21-32); Glucose Level 87 mg/dL (74-106); Magnesium 2.1 mg/dL (1.8-2.4); Potassium 3.8 mmol/L (3.5-5.1); Sodium Level 141 mmol/L (136-145)
[2018-11-21 08:41] VITALS: BP 104/58; TEMP 97.1
[2018-11-21] MEDS: CIPROFLOXACIN 400mg IV 400 MG/200 ML BAG IV SCH (09:17)
[2018-11-21] MEDS: ENOXAPARIN 30 MG/0.3 ML SQ SCH (09:18)
[2018-11-21] MEDS: CEFTRIAXONE/SWI 1gm 1 GM/10 ML SYR IVP SCH (09:19)
--- NOTE | 2018-11-22 03:35 | DS ---
Date of Discharge: 11/21/2018 Disposition: Discharged to go home. Physical Examination: HEENT: Unremarkable. Lungs: Clear to auscultation. Heart: Heart sounds normal. Abdomen: Soft. Bowel sounds normal. No guarding, rigidity, tenderness, or distention. Extremities: No leg edema. Discharge Medications And Instructions: 1. Continue prior home medication including Cipro as prescribed a day prior to this hospital admission. 2. Follow up with urologist of her choice in 2 weeks, and follow up at my office in 2 weeks. Hospital Course: This is a 27-year-old pleasant female patient, admitted to the hospital with fever, chills, back pain. Please see dictated H and P for more information. The patient was seen at office and was diagnosed as having acute pyelonephritis. Outpatient blood work was done which included CBC, Chem profile, lactate, procalcitonin level, urinalysis, urine culture and blood culture. All her blood work result was unremarkable. Urinalysis was abnormal consistent with infection and the patient was started on Cipro on outpatient basis. On the day of admission, I was contacted by hospital lab that the patient's blood culture came back positive for gram-negative rods. So the patient was contacted with this information and was advised to get admitted to the hospital. After she was admitted to the hospital, we did repeat her blood work, which was CBC and chemistry, which was unremarkable except potassium level was 3.4, sodium 136, chloride 103, bicarb 25, BUN 10, creatinine 0.48, glucose 97. Procalcitonin 0.06, magnesium 1.9. Her white count on the day of admission was 10.7. The patient was given IV fluid and IV Cipro, and IV ceftriaxone was started. Patient improved with appropriate treatment. She has tolerated food very well and over the period of this hospitalization, her condition improved. Today, she reported that her flank pain that she had upon admission has resolved, and denies any complaints at all. Ultrasound of kidney and bladder done yesterday reported as bilateral hydronephrosis and hydroureter with that. We also ordered CAT scan of the abdomen per kidney stone protocol and that shows tiny calcification in bilateral renal calyx. No evidence of any stone in the ureter and no evidence of any hydronephrosis or hydroureter on the CAT scan. When patient had a bladder and kidney ultrasound, her bladder was full and subsequently when she had CAT scan of abdomen per kidney stone protocol , her bladder was contrasted and there was no hydroureter or hydronephrosis. So , we believe that the patient might have vesicoureteral reflux and full distended bladder might be contributing to such problem with hydroureter and hydronephrosis. There is no evidence of any pelvic mass on the CAT scan. So, all these details were discussed with her. Her urine culture and blood culture grew Klebsiella and it was sensitive to Cipro. The patient is medically stable for discharge with outpatient oral antibiotic Cipro for 2 weeks as prescribed, and I have advised her to follow up with the urologist and she is going to schedule her appointment with Dr. Panchal. I have instructed her that she should drink 50-60 ounces of water a day and she should go to bathroom every hour to 2 hours. Whether she feels like her bladder is full or not, she should routinely go to urinate frequently to avoid any distended bladder and any ill affects as a result of distended bladder like hydroureter. The patient was discharged in stable condition. Final Diagnoses: 1. Sepsis, organism Klebsiella. 2. Acute pyelonephritis, organism Klebsiella. 3. Hypothyroidism. 4. Hypokalemia. 5. Non alcoholic fatty liver disease. MICHELLE/MODL Voice ID: [id number] Report ID: [id number] MTDNéstor
== END 2018-11-21 11:29 | disposition home or self-care (01) | DRG 872 ==
LOC: 2ND 16:33
PROVIDERS: ADMIT Internal Medicine; ATTEND Internal Medicine
DX: A41.59 Other Gram-negative sepsis (principal); N10 Acute pyelonephritis; B96.1 Klebsiella pneumoniae [K. pneumoniae] as the cause of diseases classified elsewhere; E03.9 Hypothyroidism, unspecified; E87.6 Hypokalemia; K76.0 Fatty (change of) liver, not elsewhere classified
CPT/HCPCS: 36415; 74176; 76377; 76770; 76857; 80048; 83735; 84145; 85025; J0696; J0744; J1650; J7030

== ENCOUNTER 2018-12-27 12:15 | Emergency (ER) | payer OTHER ==
--- OUTSIDE RECORDS SUMMARY | 2018-12-27 12:17 | XMS REPORT ---
[...] End Status Dosage System Date Date CitraNatal [facility] 64720822711 27-1-260 MG Mar 10, Active 1 capsule [place] Orally Once a 2017 day Breast Pump [facility] 90176325039 - May 21, Active as directed 2019 Synthroid [facility] 38166372874 175 MCG Orally Active 1 tablet on Once a day an empty stomach in the morning Diclegis [facility] 00914032826 10-10 MG Orally Jan 14, Active 2 tablets once a day 2018 at bedtime on an empty stomach Macrobid [facility] 84303151011 100 MG Orally Apr 03Dec Active 1 capsule daily 2017, with food 2019 Results No Known Results Summary Purpose eClinicalWorks Submission
--- OUTSIDE RECORDS SUMMARY | 2018-12-27 12:17 | XMS REPORT | Clinical Summary ---
:1990 Author Organization [facility] [employer] Address [address] [place] [address] Care Team Providers Name Role Phone Alvarez [...] MD Andrew Recurrent UTI; Flank pain after 12/26/2017 Family History Relation Name Status Comments Father [...] 3:27 PM Hydronephrosis, Results for this DIPSTICK METAL FLOW COORDINATOR bilateral procedure are in the results section. 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
--- OUTSIDE RECORDS SUMMARY | 2018-12-27 12:17 | XMS REPORT ---
[...] End Status Dosage System Date Date Macrobid [facility] 27875895456 100 MG Orally Apr 03Dec Active 1 capsule daily 2017, with food 2018 Diclegis [facility] 30660907911 10-10 MG Orally Jan 14, Active 2 tablets once a day 2018 at bedtime on an empty stomach CitraNatal [facility] 06052016180 27-1-260 MG Mar 10, Active 1 capsule [place] Orally Once a 2018 day Synthroid [facility] 10714131436 175 MCG Orally Active 1 tablet Once a day on an empty stomach in the morning Results No Known Results Summary Purpose eClinicalWorks Submission
--- OUTSIDE RECORDS SUMMARY | 2018-12-27 12:17 | XMS REPORT ---
[...] Medications Results No Known Results Summary Purpose [facility] Submission
--- OUTSIDE RECORDS SUMMARY | 2018-12-27 12:17 | XMS REPORT ---
[...] Date Date CitraNatal [facility] 28943705761 27-1-260 MG Mar 10, Active 1 capsule [place] Orally Once a 2017 day Diclegis [facility] 96080741608 10-10 MG Orally Jan 14, Active 2 tablets once a day 2018 at bedtime on an empty stomach Synthroid [facility] 86553354840 175 MCG Orally Active 1 tablet on Once a day an empty stomach in the morning Breast Pump ND 52553708440 - May 21, Active as directed 2019 Macrobid [facility] 62903834018 100 MG Orally Apr 03, Dec Active 1 capsule daily 2017 23, with food 2018 Results No Known Results Summary Purpose eClinicalWorks Submission
--- OUTSIDE RECORDS SUMMARY | 2018-12-27 12:17 | XMS REPORT ---
[...] End Status Dosage System Date Date Diclegis [facility] 52660234647 10-10 MG Orally Jan 14, Active 2 tablets once a day 2017 at bedtime on an empty stomach Breast Pump [facility] 69406774216 - May 21, Active as directed 2019 CitraNatal [facility] 34509709078 27-1-260 MG Mar 10, Active 1 capsule [place] Orally Once a 2018 day Synthroid [facility] 84830031646 175 MCG Orally Active 1 tablet on Once a day an empty stomach in the morning Macrobid [facility] 82421411264 100 MG Orally Apr 03Dec Active 1 capsule daily 2017, with food 2019 Results No Known Results Summary Purpose eClinicalWorks Submission
--- OUTSIDE RECORDS SUMMARY | 2018-12-27 12:17 | XMS REPORT ---
[...] End Status Dosage System Date Date CitraNatal [facility] 94210045906 27-1-260 MG Mar 10, Active 1 capsule [place] Orally Once a 2017 day Macrobid [facility] 05161382247 100 MG Orally Apr 03Dec Active 1 capsule daily 2017, with food 2018 Diclegis [facility] 58289594840 10-10 MG Orally Jan 14, Active 2 tablets once a day 2018 at bedtime on an empty stomach Synthroid [facility] 28367487212 175 MCG Orally Active 1 tablet Once a day on an empty stomach in the morning Results No Known Results Summary Purpose eClinicalWorks Submission
--- OUTSIDE RECORDS SUMMARY | 2018-12-27 12:17 | XMS REPORT ---
[...] Start End Date Status Dosage Date Macrobid [facility] 61356029440 100 MG Orally Apr 03, Dec 29, Active 1 capsule daily 2017 2018 with food Results No Known Results Summary Purpose eClinicalWorks Submission
--- OUTSIDE RECORDS SUMMARY | 2018-12-27 12:18 | XMS REPORT ---
[...] Status Dosage System Date Date CitraNatal [facility] 27272178022 27-1-260 MG Mar 10, Active 1 capsule [place] Orally Once a [address] [facility] 85752446864 10-10 MG Orally Jan 14, Active 2 tablets once a day 2018 at bedtime on an empty stomach Macrobid ND 26132988513 100 MG Orally Apr 03Dec Active 1 capsule daily 2017, with food [address] [facility] 05028272037 - May 21, Active as directed 2019 Synthroid ND 03537047600 175 MCG Orally Active 1 tablet on Once a day an empty stomach in the morning Results No Known Results Summary Purpose eClinicalWorks Submission
--- OUTSIDE RECORDS SUMMARY | 2018-12-27 12:18 | XMS REPORT ---
[...] Date Date CitraNatal [facility] [id number] 27-1-260 MG Mar 10, Active 1 capsule [place] Orally Once a 2017 day Diclegis [facility] 79056267110 10-10 MG Orally Jan 14, Active 2 tablets once a day 2018 at bedtime on an empty stomach Breast Pump [facility] 00907669069 - May 21, Active as directed 2019 Macrobid [facility] 25984224522 100 MG Orally Apr 03Dec Active 1 capsule daily 2017, with food 2018 Synthroid [facility] 82501524251 175 MCG Orally Active 1 tablet on Once a day an empty stomach in the morning Results No Known Results Summary Purpose eClinicalWorks Submission
--- OUTSIDE RECORDS SUMMARY | 2018-12-27 12:18 | XMS REPORT ---
[...] Status Dosage System Date Date Macrobid [facility] 62207099936 100 MG Orally Apr 03Dec Active 1 capsule daily 2017, with food 2018 Diclegis [facility] 46615273602 10-10 MG Orally Jan 14, Active 2 tablets once a day 2018 at bedtime on an empty stomach CitraNatal [facility] 14601731544 27-1-260 MG Mar 10, Active 1 capsule [place] Orally Once a 2018 day Breast Pump ND 30826017606 - May 21, Active as directed 2019 Synthroid [facility] 07854483280 175 MCG Orally Active 1 tablet on Once a day an empty stomach in the morning Results No Known Results Summary Purpose eClinicalWorks Submission
--- OUTSIDE RECORDS SUMMARY | 2018-12-27 12:18 | XMS REPORT ---
[...] Status Dosage System Date Date Breast Pump [facility] [place] [place] 79682248448 - May 21, Active as directed 2018 Diclegis [facility] [place] 21613576151 10-10 MG Orally Jan 14, Active 2 tablets once a day 2017 at bedtime on an empty stomach Macrobid [facility] [place] 13171990963 100 MG Orally Apr 03Dec Active 1 capsule daily 2017, with food 2018 CitraNatal [facility] [place] 61361969804 27-1-260 MG Mar 10, Active 1 capsule [place] Orally Once a 2018 day Synthroid ND 84115632801 175 MCG Orally Active 1 tablet on Once a day an empty stomach in the morning Results No Known Results Summary Purpose eClinicalWorks Submission
--- NOTE | 2018-12-27 12:31 | RAD REPORT ---
EXAM DESCRIPTION: CT - Ct Stroke Brain Wo Cont - 12/27/2018 12:23 pm CLINICAL HISTORY: CONFUSED Headache, drowsiness, CVA symptomology COMPARISON: No comparisonsNo comparisons TECHNIQUE: All CT scans are performed using dose optimization technique as appropriate and may inclu de automated exposure control or mA/KV adjustment according to patient size. FINDINGS: No intracranial hemorrhage, hydrocephalus or extra-axial fluid collection.No areas of brai n edema or evidence of midline shift. The paranasal sinuses and mastoids are clear. The calvarium is intact. IMPRESSION: No acute intracranial abnormality. The findings were discussed with Tamiko Harmon in the ER on 12/27/2018 at 12:27 p.m. by telephone.
[2018-12-27 12:38] LABS: Absolute Lymphocytes (CBC) 2.3 K/uL (0.7-4.9); Basophils % 0.7 % (0-1.3); Hematocrit 36.9 % (36.0-45.0); MPV 8.2 fL (7.6-11.3); RBC Red Blood Cell Count 4.47 M/uL (3.86-4.86)
[2018-12-27 12:44] LABS: Protime INR 1.07
--- NOTE | 2018-12-27 12:48 | EDPHYS ---
Physician Documentation [facility] Name: Karmen Parham Age: 28 yrs Sex: Female : 1990 Arrival Date: 12/27/2018 Time: 12:16 Bed 13 Private MD: Unknown, Unknown ED Physician Alexa Patel HPI: 12/27 12:42 This 28 yrs old Female presents to ER via Unassigned with complaints of S/S of ma2 Possible Stroke. 12:42 This 28 yrs old Female presents to ER via Unassigned with complaints of left ma2 facial droop. 12:42 The patient's problem is reported as left mild facial droop. Onset: The ma2 symptoms/episode began/occurred gradually, 1 hour(s) ago. Associated signs and symptoms: Pertinent negatives: agitation, blurred vision, confusion, diarrhea. Severity of symptoms: At their worst the symptoms were very mild in the emergency department the symptoms are unchanged. The patient has not experienced similar symptoms in the past. 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 - Social history:: Patient/guardian denies using alcohol, street drugs, The patient lives with family, Smoking status: Patient/guardian denies using tobacco. - Family history:: not pertinent. - Ebola Screening: : Patient negative for fever greater than or equal to 101.5 degrees Fahrenheit, and additional compatible Ebola Virus Disease symptoms. ROS: 12:42 Constitutional: Negative for fever, chills, and weight loss. ma2 12:42 All other systems are negative. Exam: 12:42 Radiologist reports: normal ma2 12:42 Constitutional: This is a well developed, well nourished patient who is awake, alert, and in no acute distress. Eyes: Pupils equal round and reactive to light, extra-ocular motions intact. Lids and lashes normal. Conjunctiva and sclera are non-icteric and not injected. Cornea within normal limits. Periorbital areas with no swelling, redness, or edema. ENT: Nares patent. No nasal discharge, no septal abnormalities noted. Tympanic membranes are normal and external auditory canals are clear. Oropharynx with no redness, swelling, or masses, exudates, or evidence of obstruction, uvula midline. Mucous membranes moist. Neck: Trachea midline, no thyromegaly or masses palpated, and no cervical lymphadenopathy. Supple, full range of motion without nuchal rigidity, or vertebral point tenderness. No Meningismus. Chest/axilla: Normal chest wall appearance and motion. Nontender with no deformity. No lesions are appreciated. Cardiovascular: Regular rate and rhythm with a normal S1 and S2. No gallops, murmurs, or rubs. Normal PMI, no JVD. No pulse deficits. Respiratory: Lungs have equal breath sounds bilaterally, clear to auscultation and percussion. No rales, rhonchi or wheezes noted. No increased work of breathing, no retractions or nasal flaring. Abdomen/GI: Soft, non-tender, with normal bowel sounds. No distension or tympany. No guarding or rebound. No evidence of tenderness throughout. Female : Normal external genitalia. Skin: Warm, dry with normal turgor. Normal color with no rashes, no lesions, and no evidence of cellulitis. MS/ Extremity: Pulses equal, no cyanosis. Neurovascular intact. Full, normal range of motion. Neuro: mild left facial droop and lower motor neuron weakness that includes forehead, otherwise she is Awake and alert, GCS 15, oriented to person, place, time, and situation. Cranial nerves II-XII grossly intact. Motor strength 5/5 in all extremities. Sensory grossly intact. Cerebellar exam normal. Normal gait. Vital Signs: 12:25 BP 138 / 85; Pulse 113; Resp 16; Temp 97.8; Pulse Ox 100% on R/A; Weight 66.68 kg (R); rb1 Height 4 ft. 11 in. (149.86 cm) (R); Pain 0/10; 13:18 BP 125 / 95; Pulse 86; Resp 15; Temp 98.0(O); Pulse Ox 98% on R/A; Pain 0/10; rb1 12:25 Body Mass Index 29.69 (66.68 kg, 149.86 cm) rb1 NIH Stroke Scale Scores: 12:50 NIHSS Score: 1 rb1 MDM: 12:17 Patient medically screened. va2 12:42 Differential diagnosis: Alzheimer disease, Parkinson disease, metabolic disorder, drug va2 effects. Data reviewed: vital signs, nurses notes. Counseling: I had a detailed discussion with the patient and/or guardian regarding: the historical points, exam findings, and any diagnostic results supporting the discharge/admit diagnosis, the presence of at least one elevated blood pressure reading (>120/80) during this emergency department visit. Response to treatment: There is no appreciated change of the patient's symptoms at this time. 12/27 12:19 Order name: Basic Metabolic Panel [facility] 12/27 12:19 Order name: CBC with Diff; Complete Time: 12:41 [facility] 12/27 12:19 Order name: Protime (+inr) [facility] 12/27 12:19 Order name: Ptt, Activated [facility] 12/27 12:19 Order name: CT Stroke Brain w/o Contrast; Complete Time: 12:40 [facility] 12/27 12:40 Interpretation: No acute disease. [facility] 12/27 12:55 Order name: Glucose, Ancillary Testing EDMS 12/27 12:19 Order name: Stroke CXR 1 View [facility] 12/27 12:19 Order name: Accucheck; Complete Time: 13:01 [facility] 12/27 12:19 Order name: Cardiac monitoring; Complete Time: 13:01 [facility] 12/27 12:19 Order name: Labs collected and sent; Complete Time: 13:01 [facility] 12/27 12:19 Order name: NPO; Complete Time: 13:01 [facility] 12/27 12:19 Order name: O2 Per Protocol; Complete Time: 13:01 [facility] 12/27 12:19 Order name: O2 Sat Monitoring; Complete Time: 13:01 [facility] 12/27 12:19 Order name: Stroke Swallow Screen; Complete Time: 13:01 [facility] Administered Medications: No medications were administered Point of Care Testing: Blood Glucose: 12:50 Blood Glucose: 97 mg/dL; rb1 Ranges: Critical Glucose Levels:Adult <50 mg/dl or >400 mg/dl <40 mg/dl or >180 mg/dl Disposition: 12/27/18 12:47 Discharged to Home. Impression: Major's palsy. - Condition is Stable. - Discharge Instructions: Major Palsy, Adult. - Prescriptions for Acyclovir 400 mg Oral Tablet - take 1 tablet by ORAL route every 5 hours; 30 tablet. Medrol ([place]) 4 mg Oral Tablets, Dose Pack - take 1 tablet by ORAL route as directed - follow package instructions; 1 packet. - Medication Reconciliation Form, Thank You Letter, Antibiotic Education, Prescription Opioid Use form. - Follow up: Private Physician; When: Tomorrow; Reason: Continuance of care. NIH Stroke Scale - NIH Stroke Score Date: 12/27/2018 Time: 12:50 Total Score = 1 1a. Level of Consciousness (LOC) - 0(Alert) 1b. Level of Consciousness (LOC) (Year \T\ Age) - 0(Both) 1c. LOC Commands (Open \T\ Closes Eyes/Wort Extractor) - 0(Both) 2. Best Gaze (Lateral Gaze Paresis) - 0(Normal) 3. Visual Field Loss - 0(No visual loss) 4. Facial Palsy - 1(Minor Paralysis) 5a. Left Arm: Motor (10-second hold) - 0(No drift) 5b. Right Arm: Motor (10-second hold) - 0(No drift) 6a. Left Leg: Motor (5-second hold - always test supine) - 0(No drift) 6b. Right Leg: Motor (5-second hold - always test supine) - 0(No drift) 7. Limb Ataxia (finger/nose \T\ heel/coffman - test with eyes open) - 0(Absent) 8. Sensory Loss (pinprick arms/legs/face) - 0(Normal) 9. Best Language: Aphasia (description/naming/reading) - 0(No aphasia) 10. Dysarthria (speech clarity - read or repeat words) - 0(Normal) 11. Extinction and Inattention (visual/tactile/auditory/spatial/personal) - 0(No abnormality) Initials: rb1 Signatures: Dispatcher [employer] Mahogany Rai RN RN rb1 Alexa Patel MD MD ma2 Corrections: (The following items were deleted from the chart) 13:01 12:19 IV Saline Lock ordered. ma2 rb1 13:21 12:47 12/27/2018 12:47 Discharged to Home. Impression: Major's palsy. Condition rb1 is Stable. Forms are Medication Reconciliation Form, Thank You Letter, Antibiotic Education, Prescription Opioid Use. Follow up: Private Physician; When: Tomorrow; Reason: Continuance of care. ma2
--- NOTE | 2018-12-27 12:48 | ER ---
Nurse's Notes [facility] Name: Karmen Parham Age: 28 yrs Sex: Female : 1990 Arrival Date: 12/27/2018 Time: 12:16 Bed 13 Private MD: Unknown, Unknown Diagnosis: Major's palsy Presentation: 12/27 12:20 Presenting complaint: Patient states: I was talking with another nurse at around 1200 la1 and I was having trouble speaking, I felt like I was slobbering, and my jaw was kind locking. 12:25 Transition of care: patient was not received from another setting of care. No acute rb1 neurological deficit is noted. Risk Assessment: Do you want to hurt yourself or someone else? Patient reports no desire to harm self or others. Initial Sepsis Screen: Does the patient meet any 2 criteria? No. Patient's initial sepsis screen is negative. Does the patient have a suspected source of infection? No. Patient's initial sepsis screen is negative. 12:25 Method Of Arrival: Wheelchair rb1 12:25 Onset of symptoms was December 27, 2018 at 11:00. Care prior to arrival: None. rb1 12:27 Acuity: NAUN 2 la1 12:50 The patients blood glucose was checked before arriving to the hospital and was found to rb1 be normal. Triage Assessment: 12:25 Neuro: Reports Initially she had trouble getting words to come out when she tried to rb1 speak. Dr. Villavicencio witnessed the pt. having difficulty speaking with some left sided facial droop.. 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 rb1 Stroke Activation: Symptom onset < 3 hours Physician: Stroke Attending; Name: Jorge; Notified At: 12:16; Arrived At: 12:16 Physician: Chief Stroke Resident; Name: ; Notified At: 12:16; Arrived At: Physician: Stroke Resident; Name: ; Notified At: 12:16; Arrived At: Physician: ED Attending; Name: ; Notified At: 12:16; Arrived At: Physician: ED Resident; Name: ; Notified At: 12:16; Arrived At: Historical: - Allergies: 12:25 No Known Allergies; rb1 - Home Meds: 12:25 Synthroid 150 mcg oral tab [Active]; rb1 - PMHx: 12:22 Hypothyroidism; rb1 - PSHx: 12:22 Appendectomy; rb1 12:25 ; rb1 - Immunization history:: Adult Immunizations up to date. - Social history:: Patient/guardian denies using alcohol, street drugs, The patient lives with family, Smoking status: Patient/guardian denies using tobacco. - Family history:: not pertinent. - Ebola Screening: : Patient negative for fever greater than or equal to 101.5 degrees Fahrenheit, and additional compatible Ebola Virus Disease symptoms. Screenin:25 Abuse screen: Denies threats or abuse. Nutritional screening: No deficits noted. rb1 Tuberculosis screening: No symptoms or risk factors identified. Fall Risk None identified. Assessment: 12:16 General: Pt. went straight to CT. rb1 12:25 Reassessment:. General: Appears in no apparent distress. comfortable, Behavior is calm, rb1 cooperative. General: Pt. was working on the floor and was having trouble communicating to the doctor. Was not able to get the words out while trying to speak.. Pain: Denies pain. Neuro: Level of Consciousness is awake, alert, obeys commands, Oriented to person, place, time, situation, C Iron Worker are equal bilaterally Moves all extremities. Gait is steady, Speech is normal, Facial droop on left. Cardiovascular: Capillary refill < 3 seconds is brisk in bilateral fingers. Respiratory: Airway is patent Respiratory effort is even, unlabored, Respiratory pattern is regular, symmetrical. GI: No signs and/or symptoms were reported involving the gastrointestinal system. : No signs and/or symptoms were reported regarding the genitourinary system. Derm: Skin is pink, warm \T\ dry. Musculoskeletal: Range of motion: intact in all extremities. 12:50 VAN Scoring: Arm Drift: Patients demonstrates NO arm weakness. Patient is VAN Negative. rb1 Visual Disturbance: No visual disturbance noted. Neglect: No neglect noted. Patient has been NPO before screening. The patient is alert, and able to follow commands. The patient does not exhibit slurred or garbled speech. The patient is not exhibiting difficulty speaking. The patient does not exhibit difficulty understanding words. The patient is able to swallow own secretions with no drooling or need for suction. Patient tolerated one teaspoon of water. No drooling, immediate coughing, gurgling, or clearing of the throat was noted. The patient passed the bedside swallow screening. Oral medications may be given as ordered. Contact Physician for further diet orders. Provider notified of bedside swallow screening results: Alexa Patel MD. 13:15 Reassessment: Patient appears in no apparent distress at this time. Left facial droop rb1 has improved, speech is clear and easily understood. Family at bedside. Vital Signs: 12:25 BP 138 / 85; Pulse 113; Resp 16; Temp 97.8; Pulse Ox 100% on R/A; Weight 66.68 kg (R); rb1 Height 4 ft. 11 in. (149.86 cm) (R); Pain 0/10; 13:18 BP 125 / 95; Pulse 86; Resp 15; Temp 98.0(O); Pulse Ox 98% on R/A; Pain 0/10; rb1 12:25 Body Mass Index 29.69 (66.68 kg, 149.86 cm) rb1 NIH Stroke Scale Scores: 12:50 NIHSS Score: 1 rb1 ED Course: 12:16 Patient arrived in ED. ag5 12:17 Alexa Patel MD is Attending Physician. ma2 12:19 Unknown, Unknown is Private Physician. ag5 12:20 Mahogany Palafox, RN is Primary Nurse. rb1 12:25 CT Stroke Brain w/o Contrast In Process Unspecified. EDMS 12:25 Patient has correct armband on for positive identification. Bed in low position. Call rb1 light in reach. Side rails up X 1. Pulse ox on. NIBP on. 12:25 Arm band placed on right wrist. rb1 12:27 Triage completed. la1 12:40 Patient did not have IV access during this emergency room visit. Dr. Patel gave rb1 verbal order to cancel the IV due to labs already being drawn and sent. 12:43 Stroke CXR 1 View In Process Unspecified. EDMS 13:21 No provider procedures requiring assistance completed. Patient did not have IV access rb1 during this emergency room visit. Administered Medications: No medications were administered Point of Care Testing: Blood Glucose: 12:50 Blood Glucose: 97 mg/dL; rb1 Ranges: Outcome: 12:47 Discharge ordered by . ma2 13:21 Patient left the ED. rb1 13:21 Discharged to home ambulatory, with family. rb1 13:21 Condition: stable 13:21 Discharge instructions given to patient, Instructed on discharge instructions, follow up and referral plans. medication usage, Demonstrated understanding of instructions, follow-up care, medications, Prescriptions given X 2. NIH Stroke Scale - NIH Stroke Score Date: 12/27/2018 Time: 12:50 Total Score = 1 1a. Level of Consciousness (LOC) - 0(Alert) 1b. Level of Consciousness (LOC) (Year \T\ Age) - 0(Both) 1c. LOC Commands (Open \T\ Closes Eyes/Campaign Director) - 0(Both) 2. Best Gaze (Lateral Gaze Paresis) - 0(Normal) 3. Visual Field Loss - 0(No visual loss) 4. Facial Palsy - 1(Minor Paralysis) 5a. Left Arm: Motor (10-second hold) - 0(No drift) 5b. Right Arm: Motor (10-second hold) - 0(No drift) 6a. Left Leg: Motor (5-second hold - always test supine) - 0(No drift) 6b. Right Leg: Motor (5-second hold - always test supine) - 0(No drift) 7. Limb Ataxia (finger/nose \T\ heel/coffman - test with eyes open) - 0(Absent) 8. Sensory Loss (pinprick arms/legs/face) - 0(Normal) 9. Best Language: Aphasia (description/naming/reading) - 0(No aphasia) 10. Dysarthria (speech clarity - read or repeat words) - 0(Normal) 11. Extinction and Inattention (visual/tactile/auditory/spatial/personal) - 0(No abnormality) Initials: rb1 Signatures: Dispatcher [employer] EDClayton Villa RN RN la1 Mahogany Palafox, SHONA RN rb1 Alexa Patel MD MD ma2 Aldo Mascorro ag5
--- NOTE | 2018-12-27 12:50 | RAD REPORT ---
EXAM DESCRIPTION: RAD - Chest Single View - 12/27/2018 12:41 pm CLINICAL HISTORY: CONGESTION Chest pain. COMPARISON: Chest Single View dated 02/11/2018 FINDINGS: Portable technique limits examination quality. The lungs are grossly clear. The heart is normal in size. No displaced fractures. IMPRESSION: No acute intrathoracic process suspected.
[2018-12-27 12:51] LABS: BUN Blood Urea Nitrogen 8 mg/dL (7-18); Bicarbonate 26 mmol/L (21-32); Glucose Level 105 mg/dL (74-106); Potassium 3.5 mmol/L (3.5-5.1); Sodium Level 139 mmol/L (136-145)
[2018-12-27 13:30] VITALS: BP 138/85; TEMP 97.8; O2SAT 100
== END 2018-12-27 13:21 | disposition home or self-care (01) ==
LOC: ER 12:15
DX: G51.0 Bell's palsy (principal); E03.9 Hypothyroidism, unspecified
CPT/HCPCS: 36415; 70450; 71045; 80048; 82962; 85025; 85610; 85730; 99283

== ENCOUNTER 2019-01-01 15:37 | Emergency (ER) | payer OTHER ==
[2019-01-01 16:02] LABS: Absolute Lymphocytes (CBC) 3.5 K/uL (0.7-4.9); Basophils % 0.9 % (0-1.3); Hematocrit 41.3 % (36.0-45.0); Lymphocytes % 25.9 % (15.3-44.8); MPV 8.1 fL (7.6-11.3); RBC Red Blood Cell Count 4.91 M/uL (3.86-4.86)
[2019-01-01 16:22] LABS: Albumin 4.3 g/dL (3.4-5.0); Bilirubin Direct 0.1 mg/dL (0-0.2); Bilirubin Total 0.3 mg/dL (0.2-1.0); Potassium 3.7 mmol/L (3.5-5.1); Protein, Total 8.3 g/dL (6.4-8.2)
--- NOTE | 2019-01-01 16:34 | RAD REPORT ---
EXAM DESCRIPTION: CT - Head Brain Wo Cont - 01/01/2019 4:20 pm CLINICAL HISTORY: SEIZURE Headache, drowsiness, seizure. COMPARISON: Ct Stroke Brain Wo Cont dated 12/27/2018 TECHNIQUE: All CT scans are performed using dose optimization technique as appropriate and may inclu de automated exposure control or mA/KV adjustment according to patient size. FINDINGS: No intracranial hemorrhage, hydrocephalus or extra-axial fluid collection.No areas of brai n edema or evidence of midline shift. The paranasal sinuses and mastoids are clear. The calvarium is intact. IMPRESSION: No acute intracranial abnormality.
[2019-01-01 16:37] LABS: Thyroid Stimulating Hormone 0.126 uIU/mL (0.360-3.740)
[2019-01-01] MEDS ORDERED: NA CHLORIDE 0.9% 1,000 ML ONE (16:47)
--- NOTE | 2019-01-01 17:42 | RAD REPORT ---
EXAM DESCRIPTION: MRI - Brain Wo Cont - 01/01/2019 5:05 pm CLINICAL HISTORY: SEIZURE Headache, drowsiness, seizure COMPARISON: Head Brain Wo Cont dated 01/01/2019 TECHNIQUE: Multi-sequence, multiplanar MR imaging of the brain was performed without contrast. FINDINGS: No intracranial hemorrhage, hydrocephalus or extra-axial fluid collections. No edema or sh ift of midline structures. No findings to suspect brain mass. DWI is negative for acute CVA. Midline structures are normally formed. Coronal T1 and T2 weighted sequences demonstrate symmetric hi ppocampal structures and temporal lobes. Mastoid air cells and paranasal sinuses are clear. IMPRESSION: No acute or concerning intracranial abnormalities.
[2019-01-01] MEDS ORDERED: ACETAMINOPHEN 500 MG TAB ONE (17:59)
--- NOTE | 2019-01-01 18:19 | ER ---
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 Pt's co-worker states "I was able to catch her before she hit the floor". Pt currently in CT accompanied by RT and Dr. Villavicencio (Hospitalist). 15:37 Transition of care: Work setting: [facility]. Onset of symptoms aa5 was January 01, 2019. 15:37 Acuity: NAUN 2 aa5 15:37 Method Of Arrival: Stretcher aa5 15:41 Care prior to arrival: IV initiated. 20 GA, in the left antecubital area, Glucose aa5 check: 90 Oxygen administered. via nasal cannula. 16:17 Risk Assessment: Do you want to hurt yourself or someone else? Patient reports no ca1 desire to harm self or others. Initial Sepsis Screen: Does the patient meet any 2 criteria? No. Patient's initial sepsis screen is negative. Does the patient have a suspected source of infection? No. Patient's initial sepsis screen is negative. FINAL EXPENSE AGENT: 16:26 LMP 12/16/2018 ca1 Historical: - Allergies: 15:43 No Known Allergies; aa5 - PMHx: 15:43 Hypothyroidism; aa5 - PSHx: 15:43 Appendectomy; ; aa5 - Immunization history:: Adult Immunizations Adult Immunizations up to date. - Social history:: Smoking status: Patient/guardian denies using tobacco. - Ebola Screening: : Patient negative for fever greater than or equal to 101.5 degrees Fahrenheit, and additional compatible Ebola Virus Disease symptoms Patient denies exposure to infectious person Patient denies travel to an Ebola-affected area in the 21 days before illness onset No symptoms or risks identified at this time. Screenin:13 Abuse screen: Denies threats or abuse. Denies injuries from another. Nutritional ca1 screening: No deficits noted. Tuberculosis screening: No symptoms or risk factors identified. Fall Risk Fall in past 12 months (25 points). Secondary diagnosis (15 points) seizures, IV access (20 points). Total Oneal Fall Scale indicates High Risk Score (45 or more points). Fall prevention measures have been instituted. Side Rails Up X 2 Frequent Obs/Assessments Occuring Family Present and informed to notify staff if the need to leave the bedside As available patient and family educated on Fall Prevention Program and Strategies. Assessment: 15:41 Reassessment: Pt back from CT via stretcher, accompanied by RT and Dr. Villavicencio.. aa5 16:13 General: Appears in no apparent distress. comfortable, Behavior is calm, cooperative, ca1 appropriate for age. Pain: Complains of pain in scalp Pain currently is 5 out of 10 on a pain scale. Neuro: Level of Consciousness is awake, alert, obeys commands, Oriented to person, place, time, situation, Appropriate for age Paraprofessional Interpreter are equal bilaterally Moves all extremities. Speech is normal, Facial symmetry appears normal, Seizure activity reported prior to arrival. Cardiovascular: Heart tones S1 S2 present Capillary refill < 3 seconds Patient's skin is warm and dry. Rhythm is sinus tachycardia. Respiratory: Airway is patent Respiratory effort is even, unlabored, Respiratory pattern is regular, symmetrical, Breath sounds are clear bilaterally. GI: Abdomen is round non-distended, Bowel sounds present X 4 quads. Abd is soft and non tender X 4 quads. : No deficits noted. No signs and/or symptoms were reported regarding the genitourinary system. EENT: No deficits noted. No signs and/or symptoms were reported regarding the EENT system. Derm: Skin is intact, is healthy with good turgor, Skin is pink, warm \\T\\ dry. Musculoskeletal: Circulation, motion, and sensation intact. Capillary refill < 3 seconds, Range of motion: intact in all extremities. 17:20 Reassessment: Patient appears in no apparent distress at this time. Patient and/or ca1 family updated on plan of care and expected duration. Pain level reassessed. Patient is alert, oriented x 3, equal unlabored respirations, skin warm/dry/pink. 18:16 Reassessment: Patient appears in no apparent distress at this time. Patient and/or ca1 family updated on plan of care and expected duration. Pain level reassessed. Patient is alert, oriented x 3, equal unlabored respirations, skin warm/dry/pink. Pt c/o headache. Notified provider. Meds given. 18:21 Reassessment: Patient appears in no apparent distress at this time. Patient is alert, ca1 oriented x 3, equal unlabored respirations, skin warm/dry/pink. Patient denies pain at this time. Vital Signs: 15:50 BP 136 / 84; Pulse 133; Resp 24; Pulse Ox 100% on R/A; Weight 66.68 kg (R); Height 4 ca1 ft. 11 in. (149.86 cm) (R); Pain 5/10; 17:15 BP 126 / 85; Pulse 104; Resp 21 S; Pulse Ox 100% on R/A; ca1 18:21 BP 142 / 90; Pulse 107; Resp 19 S; Pulse Ox 100% on R/A; ca1 15:50 Body Mass Index 29.69 (66.68 kg, 149.86 cm) ca1 Lima Coma Score: 16:17 Eye Response: spontaneous(4). Verbal Response: oriented(5). Motor Response: obeys ca1 commands(6). Total: 15. NIH Stroke Scale Scores: 17:12 NIHSS Score: 0 jr8 ED Course: 15:37 Patient arrived in ED. as 15:41 Raymundo Mayorga PA is PHCP. jr8 15:41 Yimi Art MD is Attending Physician. jr8 15:41 Arm band placed on Patient placed in an exam room, on a stretcher. aa5 15:41 Seizure precautions initiated. aa5 15:50 Nataliia Linton, SHONA is Primary Nurse. ca1 15:50 Initial lab(s) drawn, by ok, sent to lab. aa5 15:56 Triage completed. aa5 15:57 CT Head Brain wo Cont In Process Unspecified. EDMS 15:57 EKG done, by maintenance service technician. reviewed by Raymundo FERREIRA. sm3 16:13 monitor technician on. Pulse ox on. NIBP on. Warm blanket given. ca1 16:17 IV is patent, is intact, with fluids infusing freely, with good blood return, G20 LAC. ca1 16:39 MRI - Brain Wo Cont In Process Unspecified. EDMS 18:21 No provider procedures requiring assistance completed. ca1 18:29 IV discontinued, intact, bleeding controlled, No redness/swelling at site. Pressure ca1 dressing applied. Administered Medications: 17:17 Drug: NS 0.9% 1000 ml Route: IV; Rate: 1000 ml; Site: left antecubital; ca1 18:30 Follow up: Response: No adverse reaction; IV Status: Completed infusion ca1 18:15 Drug: Tylenol 1000 mg Route: PO; ca1 18:20 Follow up: Response: No adverse reaction; Pain is decreased ca1 18:20 Drug: Keppra 500 mg Route: PO; ca1 18:20 Follow up: Response: Medication administered at discharge. ca1 Point of Care Testing: Blood Glucose: 15:43 Blood Glucose: 98 mg/dL; aa5 Ranges: Outcome: 18:17 Discharge ordered by . jr8 18:29 Discharged to home ambulatory, with family, with significant other. ca1 18:29 Condition: stable 18:29 Discharge instructions given to patient, Instructed on discharge instructions, follow up and referral plans. medication usage, Demonstrated understanding of instructions, follow-up care, wound care, Prescriptions given X 2. 18:29 Patient left the ED. ca1 NIH Stroke Scale - NIH Stroke Score Date: 01/01/2019 Time: 17:12 Total Score = 0 1a. Level of Consciousness (LOC) - 0(Alert) 1b. Level of Consciousness (LOC) (Year \\T\\ Age) - 0(Both) 1c. LOC Commands (Open \\T\\ Closes Eyes/Coin Wrapping Machine Operator) - 0(Both) 2. Best Gaze (Lateral Gaze Paresis) - 0(Normal) 3. Visual Field Loss - 0(No visual loss) 4. Facial Palsy - 0(Normal) 5a. Left Arm: Motor (10-second hold) - 0(No drift) 5b. Right Arm: Motor (10-second hold) - 0(No drift) 6a. Left Leg: Motor (5-second hold - always test supine) - 0(No drift) 6b. Right Leg: Motor (5-second hold - always test supine) - 0(No drift) 7. Limb Ataxia (finger/nose \\T\\ heel/coffman - test with eyes open) - 0(Absent) 8. Sensory Loss (pinprick arms/legs/face) - 0(Normal) 9. Best Language: Aphasia (description/naming/reading) - 0(No aphasia) 10. Dysarthria (speech clarity - read or repeat words) - 0(Normal) 11. Extinction and Inattention (visual/tactile/auditory/spatial/personal) - 0(No abnormality) Initials: 8 Signatures: Dispatcher [employer] Tasneem Estrada Audri, RN RN aa5 Raymundo Mayorga PA PA jr8 Ana Herr sm3 Nataliia Linton RN RN ca1 Corrections: (The following items were deleted from the chart) 16:21 16:13 Pain: Denies pain. ca1 ca1 16:26 16:18 BP 136 / 84; Pulse 133bpm; Resp 24bpm; Pulse Ox 100% RA; 66.68 kg ca1 Reported; Height 4 ft. 11 in. Reported; BMI: 29.6; Pain 5/10; ca1
--- NOTE | 2019-01-01 18:20 | EDPHYS ---
Physician Documentation [facility] Name: Karmen Parham Age: 28 yrs Sex: Female : 1990 Arrival Date: 01/01/2019 Time: 15:37 Bed 4 Private MD: ED Physician Yimi Art HPI: 01/01 17:06 This 28 yrs old Female presents to ER via Stretcher with complaints of Seizure.jr8 17:06 The patient presents after having a single isolated seizure, that lasted 2 minute(s), jr8 the episode(s) was witnessed, by co-worker(s). Character of seizure(s): Loss of consciousness: the patient experienced loss of consciousness, Motor activity: generalized, shaking all over, Incontinence: none, Apnea: the patient did not experience apnea, Circulation: the patient did not experience evidence of pulse disturbance, Eye movements: are unknown. Seizure onset: just prior to arrival. Context: the seizure(s) was witnessed, by co-worker(s), occurred at work, occurred while the patient was standing, Contributing factors: unknown. Seizure Hx: the patient has no previous seizure history. Associated injury: Head/face: swelling, tenderness. Current symptoms: dysphasia. The patient has not experienced similar symptoms in the past. The patient has been recently seen at the [facility], last week. 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 Was talking to nursing staff when they stated that she all of a sudden stopped talking and then started to have facial twitching and cocked her head sideways. Stated that she then collapsed hitting side of head followed by generalized shaking. Patient this past Saturday had facial numbness, with slurred speech and palsy. CT and blood work done at that time with negative results. Was put on acyclovir and prednisone which she has almost completed. Patient currently A\T\O x4 with mild slurring of speech . RN PATIENT SERVICES: 16:26 LMP 12/16/2018 ca1 Historical: - Allergies: 15:43 No Known Allergies; aa5 - PMHx: 15:43 Hypothyroidism; aa5 - PSHx: 15:43 Appendectomy; ; aa5 - Immunization history:: Adult Immunizations Adult Immunizations up to date. - Social history:: Smoking status: Patient/guardian denies using tobacco. - Ebola Screening: : Patient negative for fever greater than or equal to 101.5 degrees Fahrenheit, and additional compatible Ebola Virus Disease symptoms Patient denies exposure to infectious person Patient denies travel to an Ebola-affected area in the 21 days before illness onset No symptoms or risks identified at this time. ROS: 17:06 Eyes: Negative for injury, pain, redness, and discharge, ENT: Negative for injury, jr8 pain, and discharge, Neck: Negative for injury, pain, and swelling, Cardiovascular: Negative for chest pain, palpitations, and edema, Respiratory: Negative for shortness of breath, cough, wheezing, and pleuritic chest pain, Abdomen/GI: Negative for abdominal pain, nausea, vomiting, diarrhea, and constipation, Back: Negative for injury and pain, MS/Extremity: Negative for injury and deformity, Skin: Negative for injury, rash, and discoloration. 17:06 Neuro: Positive for seizure activity. Exam: 17:12 Head/Face: Normocephalic. Small hematomato to left scalp Eyes: Pupils equal round and jr8 reactive to light, extra-ocular motions intact. Lids and lashes normal. Conjunctiva and sclera are non-icteric and not injected. Cornea within normal limits. Periorbital areas with no swelling, redness, or edema. ENT: Nares patent. No nasal discharge, no septal abnormalities noted. Tympanic membranes are normal and external auditory canals are clear. Oropharynx with no redness, swelling, or masses, exudates, or evidence of obstruction, uvula midline. Mucous membranes moist. Neck: Trachea midline, no thyromegaly or masses palpated, and no cervical lymphadenopathy. Supple, full range of motion without nuchal rigidity, or vertebral point tenderness. No Meningismus. Chest/axilla: Normal chest wall appearance and motion. Nontender with no deformity. No lesions are appreciated. Cardiovascular: Regular rate and rhythm with a normal S1 and S2. No gallops, murmurs, or rubs. Normal PMI, no JVD. No pulse deficits. Respiratory: Lungs have equal breath sounds bilaterally, clear to auscultation and percussion. No rales, rhonchi or wheezes noted. No increased work of breathing, no retractions or nasal flaring. Abdomen/GI: Soft, non-tender, with normal bowel sounds. No distension or tympany. No guarding or rebound. No evidence of tenderness throughout. Back: No spinal tenderness. No costovertebral tenderness. Full range of motion. Skin: Warm, dry with normal turgor. Normal color with no rashes, no lesions, and no evidence of cellulitis. MS/ Extremity: Pulses equal, no cyanosis. Neurovascular intact. Full, normal range of motion. Neuro: Awake and alert, GCS 15, oriented to person, place, time, and situation. Cranial nerves II-XII grossly intact. Motor strength 5/5 in all extremities. Sensory grossly intact. Cerebellar exam normal. Mild slurring of speech with tachycardia. Postictal state present Vital Signs: 15:50 BP 136 / 84; Pulse 133; Resp 24; Pulse Ox 100% on R/A; Weight 66.68 kg (R); Height 4 ca1 ft. 11 in. (149.86 cm) (R); Pain 5/10; 17:15 BP 126 / 85; Pulse 104; Resp 21 S; Pulse Ox 100% on R/A; ca1 18:21 BP 142 / 90; Pulse 107; Resp 19 S; Pulse Ox 100% on R/A; ca1 15:50 Body Mass Index 29.69 (66.68 kg, 149.86 cm) ca1 NIH Stroke Scale Scores: 17:12 NIHSS Score: 0 jr8 Isis Coma Score: 16:17 Eye Response: spontaneous(4). Verbal Response: oriented(5). Motor Response: obeys ca1 commands(6). Total: 15. MDM: 15:41 Patient medically screened. [facility] 18:14 Data reviewed: vital signs, nurses notes, lab test result(s), EKG, radiologic studies, [facility] CT scan, MRI. Data interpreted: Pulse oximetry: on room air is 100 %. Interpretation: normal. Counseling: I had a detailed discussion with the patient and/or guardian regarding: the historical points, exam findings, and any diagnostic results supporting the discharge/admit diagnosis, lab results, radiology results, the need for outpatient follow up, a neurologist, to return to the emergency department if symptoms worsen or persist or if there are any questions or concerns that arise at home. ED course: Patient now back to baseline. After further discussing previous episode on Saturday. Sounds like patient had more of a focal seizure and has had a couple smaller ones over the last few days followed by tonic/clonic today. Will start patient on keppra and have her f/u with neurology . 01/01 15:42 Order name: CBC with Diff; Complete Time: 16:30 01/01 15:42 Order name: Basic Metabolic Panel; Complete Time: 16:30 01/01 15:42 Order name: LFT's; Complete Time: 16:30 01/01 15:50 Order name: TSH; Complete Time: 16:45 01/01 15:50 Order name: T4 Free; Complete Time: 16:45 01/01 15:57 Order name: glucometer results - FOR PT WITH NO ID aa5 01/01 15:42 Order name: IV; Complete Time: 15:49 01/01 15:42 Order name: CT Head Brain wo Cont; Complete Time: 16:50 01/01 15:50 Order name: MRI - Brain Wo Cont; Complete Time: 17:57 01/01 15:50 Order name: EKG - Nurse/Tech; Complete Time: 15:51 01/01 15:50 Order name: EKG; Complete Time: 15:51 Administered Medications: 17:17 Drug: NS 0.9% 1000 ml Route: IV; Rate: 1000 ml; Site: left antecubital; ca1 18:30 Follow up: Response: No adverse reaction; IV Status: Completed infusion ca1 18:15 Drug: Tylenol 1000 mg Route: PO; ca1 18:20 Follow up: Response: No adverse reaction; Pain is decreased ca1 18:20 Drug: Keppra 500 mg Route: PO; ca1 18:20 Follow up: Response: Medication administered at discharge. ca1 Point of Care Testing: Blood Glucose: 15:43 Blood Glucose: 98 mg/dL; aa5 Ranges: Critical Glucose Levels:Adult <50 mg/dl or >400 mg/dl <40 mg/dl or >180 mg/dl Disposition: 01/01/19 18:17 Discharged to Home. Impression: Seizures. - Condition is Stable. - Discharge Instructions: Nonepileptic Seizures, Seizure, Adult. - Prescriptions for Diastat - insert 10 milligram by RECTAL route one time for seizure lasting greater then 2 minutes; 2 Syringe. Keppra 500 mg Oral Tablet - take 1 tablet by ORAL route every 12 hours; 60 tablet. - Work release form, Medication Reconciliation Form, Thank You Letter, Antibiotic Education, Prescription Opioid Use form. - Follow up: Private Physician; When: 2 - 3 days; Reason: Recheck today's complaints, Continuance of care, Re-evaluation by your physician. - Problem is new. - Symptoms are resolved. NIH Stroke Scale - NIH Stroke Score Date: 01/01/2019 Time: 17:12 Total Score = 0 1a. Level of Consciousness (LOC) - 0(Alert) 1b. Level of Consciousness (LOC) (Year \T\ Age) - 0(Both) 1c. LOC Commands (Open \T\ Closes Eyes/Manager Medicare) - 0(Both) 2. Best Gaze (Lateral Gaze Paresis) - 0(Normal) 3. Visual Field Loss - 0(No visual loss) 4. Facial Palsy - 0(Normal) 5a. Left Arm: Motor (10-second hold) - 0(No drift) 5b. Right Arm: Motor (10-second hold) - 0(No drift) 6a. Left Leg: Motor (5-second hold - always test supine) - 0(No drift) 6b. Right Leg: Motor (5-second hold - always test supine) - 0(No drift) 7. Limb Ataxia (finger/nose \T\ heel/coffman - test with eyes open) - 0(Absent) 8. Sensory Loss (pinprick arms/legs/face) - 0(Normal) 9. Best Language: Aphasia (description/naming/reading) - 0(No aphasia) 10. Dysarthria (speech clarity - read or repeat words) - 0(Normal) 11. Extinction and Inattention (visual/tactile/auditory/spatial/personal) - 0(No abnormality) Initials: jrChandler Addendum: 01/06/2019 14:40 Co-signature as Attending Physician, Yimi Art MD. 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 Stated that she then collapsed hitting side of head followed by generalized shaking . jr8 18:29 18:17 01/01/2019 18:17 Discharged to Home. Impression: Seizures. Condition is ca1 Stable. Forms are Medication Reconciliation Form, Thank You Letter, Antibiotic Education, Prescription Opioid Use. Follow up: Private Physician; When: 2 - 3 days; Reason: Recheck today's complaints, Continuance of care, Re-evaluation by your physician. Problem is new. Symptoms are resolved. jr8
[2019-01-01] MEDS ORDERED: levETIRAcetam 500 MG TAB ONE (18:21)
[2019-01-01 19:05] VITALS: O2SAT 100
[2019-01-01 19:08] VITALS: BP 142/90
--- NOTE | 2019-01-02 08:39 | EKG ---
Test Date: 2019-01-01 Test Time: 15:52:34 Alcoholism Worker: MARGARET MEASUREMENT RESULTS: Intervals: Rate: 125 [place]: 144 QRSD: 80 QT: 310 QTc: 447 Stickney: P: 46 [place]: 144 QRS: 67 T: 50 INTERPRETIVE STATEMENTS: Sinus tachycardia Possible Lateral infarct, age undetermined Abnormal ECG No previous ECG available for comparison Electronically Signed On 01-02-19 08:38:53 CDT by Xiang Rolle
== END 2019-01-01 18:29 | disposition home or self-care (01) ==
LOC: ER 15:37
DX: R56.9 Unspecified convulsions (principal)
CPT/HCPCS: 93005; 85025; 80048; 36415; 82962; 80076; 84443; 84439; 70450; 70551; 96360; 99284; J7030

== ENCOUNTER 2019-01-08 15:14 | Observation (INO) | payer OTHER ==
[~2019-01-08 15:14] MED LIST: LORazepam 2 MG/ML VIAL ONE
[2019-01-08] MEDS ORDERED: NA CHLORIDE 0.9% 1,000 ML ONE ×2 (15:32→19:18)
[2019-01-08 15:40] LABS: Absolute Lymphocytes (CBC) 4.6 K/uL (0.7-4.9); Basophils % 1.2 % (0-1.3); Hematocrit 41.9 % (36.0-45.0); Lymphocytes % 30.4 % (15.3-44.8); MPV 8.6 fL (7.6-11.3); RBC Red Blood Cell Count 4.89 M/uL (3.86-4.86)
[2019-01-08 15:41] LABS: Protime INR 1.02
--- NOTE | 2019-01-08 15:50 | RAD REPORT ---
EXAM DESCRIPTION: CT - Head Brain Wo Cont - 01/08/2019 3:39 pm CLINICAL HISTORY: Seizure, loss of consciousness COMPARISON: CT head January 01 TECHNIQUE: Axial 5 mm thick images of the head were obtained without IV contrast. All CT scans are performed using dose optimization technique as appropriate and may include automated exposure control or mA/KV adjustment according to patient size. FINDINGS: No intracranial hemorrhage, mass, edema or shift of mid-line structures. No acute infarcti on changes seen. No abnormal extra-axial fluid collections. Ventricles are normal. Mastoid air cells and visualized portions of the paranasal sinuses are clear. No acute bony findings. No significant change from January 01. IMPRESSION: Negative non-contrast CT head examination for acute or significant finding.
[2019-01-08 15:58] LABS: Barbiturates NEGATIVE (NEGATIVE); Benzodiazepines NEGATIVE (NEGATIVE); Cocaine NEGATIVE (NEGATIVE); METHAMPHETAM NEGATIVE (NEGATIVE); Methadone NEGATIVE (NEGATIVE); Opiates NEGATIVE (NEGATIVE); Phencyclidine NEGATIVE (NEGATIVE); THC Cannibis NEGATIVE (NEGATIVE)
[2019-01-08 16:11] LABS: ALT/SGPT 23 U/L (12-78); AST/SGOT 19 U/L (15-37); Alkaline Phosphatase 145 U/L (45-117); BUN Blood Urea Nitrogen 10 mg/dL (7-18); Bicarbonate 18 mmol/L (21-32); Bilirubin Direct < 0.1 mg/dL (0-0.2); Bilirubin Total 0.3 mg/dL (0.2-1.0); Glucose Level 104 mg/dL (74-106); NT PRO-BNP 20 pg/mL (<125); Potassium 3.4 mmol/L (3.5-5.1); Protein, Total 8.2 g/dL (6.4-8.2); Sodium Level 140 mmol/L (136-145); Troponin (Emerg Dept Use Only) < 0.02 ng/mL (0.0-0.045)
[2019-01-08] MEDS ORDERED: levETIRAcetam 1,000 MG in NA CHLORIDE 0.9% 100 ML IV ONE (16:15)
--- NOTE | 2019-01-08 17:03 | ER ---
Nurse's Notes [facility] Name: Karmen Parham Age: 28 yrs Sex: Female : 1990 Arrival Date: 01/08/2019 Time: 15:16 Bed 4 Private MD: Diagnosis: Epilepsy and recurrent seizures;Hypokalemia Presentation: 01/08 15:13 Presenting complaint: Mother states: "I think she's seizing. She's in the car." I went sv out to the car, pt actively seizing looking to the left with secretions coming out of her mouth. Shilpa NAGEL, [facility] helped me get pt out of the car onto a stretcher. Brought to ER #4. Mouth suctioned and placed on a 100% NRB. Dr Hair called to bedside. Transition of care: patient was not received from another setting of care. Onset of symptoms was January 08, 2019. Care prior to arrival: None. 15:13 Method Of Arrival: Stretcher sv 15:13 Acuity: NAUN 1 sv 19:45 Risk Assessment: Do you want to hurt yourself or someone else? Patient reports ak1 desire/thoughts of hurting themselves or someone else. Provider notified. Initial Sepsis Screen: Does the patient meet any 2 criteria? No. Patient's initial sepsis screen is negative. Does the patient have a suspected source of infection? No. Patient's initial sepsis screen is negative. Triage Assessment: 19:45 General: Appears in no apparent distress. Behavior is calm, cooperative. ak1 Historical: - Allergies: 15:33 No Known Allergies; sv - PMHx: 15:33 Hypothyroidism; sv - PSHx: 15:33 Appendectomy; ; sv - Immunization history:: Adult Immunizations up to date. - Family history:: not pertinent. - Social history:: Smoking status: unknown. - Ebola Screening: : No symptoms or risks identified at this time. Screenin:37 Abuse screen: Denies threats or abuse. Denies injuries from another. Nutritional iw screening: No deficits noted. Tuberculosis screening: No symptoms or risk factors identified. Fall Risk IV access (20 points). Assessment: 15:15 General: Appears distressed, uncomfortable, ill, well developed. Pain: Unable to use iw pain scale. Patient appears actively seizing. Neuro: Level of Consciousness is actively seizing . Cardiovascular: Capillary refill < 3 seconds in bilateral fingers Rhythm is sinus tachycardia. Respiratory: Airway is patent Respiratory effort is even, unlabored. Derm: Skin is intact, is healthy with good turgor. 15:32 Reassessment: pt transported to CT via stretcher, with SHONA Massey, with neurology tech, on iw monitor, on oxygen. 15:43 Reassessment: pt transported back to ER bed 4. 15:52 Reassessment: pt wiping her face with washcloth, pt able to answer yes/no questions by iw nodding/shaking head. mother at bedside. Pt remains tachycardic at 138 bpm, IVF infusing, Keppra infusing. 16:00 Reassessment: pt able to answer questions appropriately, pt appears tearful, states she iw has been taking her Keppra regularly, 500 mg twice a day, states she has an EEG today in [place]. 17:00 Reassessment: Patient appears in no apparent distress at this time. Patient and/or iw family updated on plan of care and expected duration. Pain level reassessed. Patient is alert, oriented x 3, equal unlabored respirations, skin warm/dry/pink. pt still having slurred speech, family and pt updated on POC, pt will be admitted to hospital with consult to Dr. Stone, Dr. Hair placed order for MRI of brain. 17:54 Reassessment: Patient appears in no apparent distress at this time. pt transported to MRI with tech and at bedside. Vital Signs: 15:20 BP 129 / 79; Pulse 143; Resp 20 S; Temp 98.9(TE); Pulse Ox 100% on 2 lpm NC; Weight iw 70.31 kg; Height 5 ft. 1 in. (154.94 cm); 15:52 BP 129 / 80; Pulse 138; Resp 18 S; Pulse Ox 100% on R/A; iw 16:13 BP 120 / 77; Pulse 152; Resp 18 S; Pulse Ox 100% on R/A; iw 16:34 BP 125 / 78; Pulse 139; Resp 16 S; Pulse Ox 98% on R/A; iw 17:21 BP 112 / 77; Pulse 113; Resp 18 S; Pulse Ox 100% on R/A; iw 19:44 BP 124 / 96; Pulse 148; Resp 20; Pulse Ox 100% on R/A; ak1 15:20 Body Mass Index 29.29 (70.31 kg, 154.94 cm) iw Vitals: 15:45 Cardiac Rhythm Assessment Sinus tach. iw Isis Coma Score: 19:45 Eye Response: spontaneous(4). Verbal Response: confused(4). Motor Response: obeys ak1 commands(6). Total: 14. ED Course: 15:16 Patient arrived in ED. mr 15:16 Warren Hair MD is Attending Physician. efra 15:17 Inserted saline lock: 20 gauge IV inserted by Shilpa Magaña RN. iw 15:19 Inserted saline lock: 22 gauge in right hand, using aseptic technique. Blood collected. ss 15:33 Triage completed. sv 15:35 Erica Mcallister, SHONA is Primary Nurse. iw 15:35 Arm band placed on. sv 15:39 CT completed. Patient tolerated procedure well. Patient moved to CT. Patient moved back nj from CT. 15:43 CT Head Brain wo Cont In Process Unspecified. EDMS 16:02 EKG done, by front end technician. reviewed by Warren Hair MD. sm3 17:00 Alvarez Butts MD is Hospitalizing Provider. efra 17:13 XRAY Chest (1 view) In Process Unspecified. EDMS 19:45 No provider procedures requiring assistance completed. ak1 19:46 Seizure precautions initiated. ak1 19:46 Patient admitted, IV remains in place. ak1 Administered Medications: 15:15 Drug: Ativan 2 mg Route: IVP; Site: right antecubital; iw 19:33 Follow up: Response: No adverse reaction ak1 15:18 Drug: Ativan 2 mg Route: IVP; Site: right antecubital; iw 19:33 Follow up: Response: No adverse reaction ak1 15:32 Drug: Keppra 1000 mg Route: IV; Rate: 1000 calculated rate; Site: right antecubital; iw 19:33 Follow up: IV Status: Completed infusion ak1 15:38 Drug: NS 0.9% 1000 ml Route: IV; Rate: 1 bolus; Site: right antecubital; iw 19:33 Follow up: IV Status: Completed infusion; IV Intake: 1000ml ak1 19:33 Drug: NS 0.9% 1000 ml Route: IV; Rate: 1 bolus; Site: right hand; ak1 19:59 Follow up: IV Status: Completed infusion la1 Intake: 19:33 IV: 1000ml; Total: 1000ml. ak1 Output: 20:16 Urine: 900ml ([place]); Total: 900ml. ak1 Outcome: 17:01 Decision to Hospitalize by Provider. [facility] 20:35 Patient left the ED. ak1 Signatures: Dispatcher [employer] EDKaylah Donahue RN RN sv Anderson, Corey, MD MD cha Rivera, Ruth mr Erica Mcallister RN Shilpa Farrell RN RN ss Attema, Lee, RN RN la1 Krenek, Amber, RN RN ak1 Zane, Ana Willoughby 3 Corrections: (The following items were deleted from the chart) 16:13 15:20 BP 129 / 79; Pulse 143bpm; Resp 20bpm; Spontaneous; Pulse Ox 100% 2 lpm Nasal iw Cannula; iw
--- NOTE | 2019-01-08 17:03 | EDPHYS ---
Physician Documentation [facility] Name: Karmen Parham Age: 28 yrs Sex: Female : 1990 Arrival Date: 01/08/2019 Time: 15:16 Bed 4 Private MD: RICARDO Physician Warren Hair HPI: 01/08 15:21 This 28 yrs old Female presents to ER via Unassigned with complaints of efra Seizure. 15:21 The patient presents after having a single isolated seizure, that lasted 10 minute(s). efra Character of seizure(s): Loss of consciousness: the patient experienced loss of consciousness, Motor activity: generalized, Incontinence: none, Apnea: the patient did not experience apnea. Seizure onset: just prior to arrival. Context: the seizure(s) was witnessed, by co-worker(s), occurred at work. Seizure Hx: Original onset: recent, Cause: unknown, Last seizure: The patient's last seizure was approximately 1 week(s) ago. Associated injury: The patient did not suffer any apparent associated injury. Current symptoms: seizure, active. The patient has experienced a previous episode, last week. Historical: - Allergies: 15:33 No Known Allergies; sv - PMHx: 15:33 Hypothyroidism; sv - PSHx: 15:33 Appendectomy; ; sv - Immunization history:: Adult Immunizations up to date. - Family history:: not pertinent. - Social history:: Smoking status: unknown. - Ebola Screening: : No symptoms or risks identified at this time. ROS: 15:21 Constitutional: Negative for fever, chills, and weight loss, Eyes: Negative for injury, efra pain, redness, and discharge, ENT: Negative for injury, pain, and discharge, Neck: Negative for injury, pain, and swelling, Cardiovascular: Negative for chest pain, palpitations, and edema, Respiratory: Negative for shortness of breath, cough, wheezing, and pleuritic chest pain, Abdomen/GI: Negative for abdominal pain, nausea, vomiting, diarrhea, and constipation, Back: Negative for injury and pain, : Negative for injury, bleeding, discharge, and swelling, MS/Extremity: Negative for injury and deformity, Skin: Negative for injury, rash, and discoloration, Psych: Negative for depression, anxiety, suicide ideation, homicidal ideation, and hallucinations, Allergy/Immunology: Negative for hives, rash, and allergies, Endocrine: Negative for neck swelling, polydipsia, polyuria, polyphagia, and marked weight changes, Hematologic/Lymphatic: Negative for swollen nodes, abnormal bleeding, and unusual bruising. 15:21 Neuro: Positive for seizure activity. Exam: 15:21 Constitutional: This is a well developed, well nourished patient who is awake, alert, efra and in no acute distress. Head/Face: Normocephalic, atraumatic. Eyes: Pupils equal round and reactive to light, extra-ocular motions intact. Lids and lashes normal. Conjunctiva and sclera are non-icteric and not injected. Cornea within normal limits. Periorbital areas with no swelling, redness, or edema. ENT: Nares patent. No nasal discharge, no septal abnormalities noted. Tympanic membranes are normal and external auditory canals are clear. Oropharynx with no redness, swelling, or masses, exudates, or evidence of obstruction, uvula midline. Mucous membranes moist. Neck: Trachea midline, no thyromegaly or masses palpated, and no cervical lymphadenopathy. Supple, full range of motion without nuchal rigidity, or vertebral point tenderness. No Meningismus. Chest/axilla: Normal chest wall appearance and motion. Nontender with no deformity. No lesions are appreciated. Respiratory: Lungs have equal breath sounds bilaterally, clear to auscultation and percussion. No rales, rhonchi or wheezes noted. No increased work of breathing, no retractions or nasal flaring. Abdomen/GI: Soft, non-tender, with normal bowel sounds. No distension or tympany. No guarding or rebound. No evidence of tenderness throughout. Back: No spinal tenderness. No costovertebral tenderness. Full range of motion. Female : Normal external genitalia. Skin: Warm, dry with normal turgor. Normal color with no rashes, no lesions, and no evidence of cellulitis. MS/ Extremity: Pulses equal, no cyanosis. Neurovascular intact. Full, normal range of motion. Psych: Awake, alert, with orientation to person, place and time. Behavior, mood, and affect are within normal limits. 15:21 Cardiovascular: Rate: tachycardic, Rhythm: regular, Pulses: Pulses are 4+ in bilateral radial, brachial, femoral, popliteal, posterior tibial and and dorsalis pedis arteries.. Heart sounds: normal, Edema: is not appreciated, JVD: is not appreciated. Vital Signs: 15:20 BP 129 / 79; Pulse 143; Resp 20 S; Temp 98.9(TE); Pulse Ox 100% on 2 lpm NC; Weight iw 70.31 kg; Height 5 ft. 1 in. (154.94 cm); 15:52 BP 129 / 80; Pulse 138; Resp 18 S; Pulse Ox 100% on R/A; iw 16:13 BP 120 / 77; Pulse 152; Resp 18 S; Pulse Ox 100% on R/A; iw 16:34 BP 125 / 78; Pulse 139; Resp 16 S; Pulse Ox 98% on R/A; iw 17:21 BP 112 / 77; Pulse 113; Resp 18 S; Pulse Ox 100% on R/A; iw 19:44 BP 124 / 96; Pulse 148; Resp 20; Pulse Ox 100% on R/A; ak1 15:20 Body Mass Index 29.29 (70.31 kg, 154.94 cm) iw Isis Coma Score: 19:45 Eye Response: spontaneous(4). Verbal Response: confused(4). Motor Response: obeys ak1 commands(6). Total: 14. MDM: 15:19 Patient medically screened. [facility] 15:24 Data reviewed: vital signs, nurses notes, lab test result(s), EKG, radiologic studies, efra CT scan, MRI, plain films. 01/08 15:21 Order name: Basic Metabolic Panel; Complete Time: 16:59 [facility] 01/08 15:21 Order name: CBC with Diff; Complete Time: 16:09 [facility] 01/08 15:21 Order name: LFT's; Complete Time: 16:59 [facility] 01/08 15:21 Order name: Magnesium; Complete Time: 16:59 [facility] 01/08 15:21 Order name: NT PRO-BNP; Complete Time: 16:59 [facility] 01/08 15:21 Order name: PT-INR; Complete Time: 16:09 [facility] 01/08 15:21 Order name: Troponin (emerg Dept Use Only); Complete Time: 16:59 [facility] 01/08 15:21 Order name: XRAY Chest (1 view) [facility] 01/08 15:21 Order name: UDS; Complete Time: 16:09 [facility] 01/08 15:21 Order name: CT Head Brain wo Cont; Complete Time: 16:09 [facility] 01/08 15:25 Order name: Urine Culture [facility] 01/08 16:46 Order name: MRI Stroke Protocol [facility] 01/08 15:21 Order name: EKG; Complete Time: 15:22 [facility] 01/08 15:21 Order name: Cardiac monitoring; Complete Time: 15:35 [facility] 01/08 15:21 Order name: EKG - Nurse/Tech; Complete Time: 19:02 [facility] 01/08 15:21 Order name: IV Saline Lock; Complete Time: 15:35 [facility] 01/08 15:21 Order name: Labs collected and sent; Complete Time: 15:35 [facility] 01/08 15:21 Order name: O2 Per Protocol; Complete Time: 15:35 [facility] 01/08 15:21 Order name: O2 Sat Monitoring; Complete Time: 15:36 [facility] 01/08 15:21 Order name: Seizure Precautions; Complete Time: 15:35 [facility] 01/08 15:25 Order name: Urine Dipstick-Ancillary (obtain specimen); Complete Time: 15:39 [facility] 01/08 17:00 Order name: PO challenge: juice; Complete Time: 18:54 [facility] 01/08 17:07 Order name: CONS Physician Consult EDMS Administered Medications: 15:15 Drug: Ativan 2 mg Route: IVP; Site: right antecubital; iw 19:33 Follow up: Response: No adverse reaction ak1 15:18 Drug: Ativan 2 mg Route: IVP; Site: right antecubital; iw 19:33 Follow up: Response: No adverse reaction ak1 15:32 Drug: Keppra 1000 mg Route: IV; Rate: 1000 calculated rate; Site: right antecubital; iw 19:33 Follow up: IV Status: Completed infusion ak1 15:38 Drug: NS 0.9% 1000 ml Route: IV; Rate: 1 bolus; Site: right antecubital; iw 19:33 Follow up: IV Status: Completed infusion; IV Intake: 1000ml ak1 19:33 Drug: NS 0.9% 1000 ml Route: IV; Rate: 1 bolus; Site: right hand; ak1 19:59 Follow up: IV Status: Completed infusion la1 Disposition: 01/08/19 17:01 Hospitalization ordered by Alvarez Butts for Observation. Preliminary diagnosis are Epilepsy and recurrent seizures, Hypokalemia. - Bed requested for Telemetry/MedSurg (Inpatient). - Status is Observation. ak1 - Condition is Fair. - Problem is new. - Symptoms have improved. UTI on Admission? No Signatures: Dispatcher [employer] EDKaylah Donahue, RN Warren Tiwari MD MD cha Williams, Irene, RN SHONA iw Samira Chacko, RN RN ak1 Tanya Maurice RN RN cg Clayton Fuentes RN la1 Corrections: (The following items were deleted from the chart) 19:42 17:01 Hospitalization Ordered by Alvarez Butts MD for Observation. Preliminary diagnosis cg is Epilepsy and recurrent seizures; Hypokalemia. Bed requested for Telemetry/MedSurg (Inpatient). Status is Observation. Condition is Fair. Problem is new. Symptoms have improved. UTI on Admission? No. efra 20:35 19:42 01/08/2019 17:01 Hospitalization Ordered by Alvarez Butts MD for Observation. ak1 Preliminary diagnosis is Epilepsy and recurrent seizures; Hypokalemia. Bed requested for Telemetry/MedSurg (Inpatient). Status is Observation. Condition is Fair. Problem is new. Symptoms have improved. UTI on Admission? No. cg
[2019-01-08] MEDS ORDERED: ONDANSETRON 4 MG/2 ML VIAL IV PRN (20:44)
[2019-01-08] MEDS ORDERED: MORPHINE 2 MG/ML SYR IV PRN (20:44)
[2019-01-08] MEDS ORDERED: ACETAMINOPHEN 500 MG TAB PO PRN (20:44)
[2019-01-08 21:01] VITALS: BMI 29.5
[2019-01-08] MEDS: NA CHLORIDE 0.9% 1,000 ML IV SCH (21:31)
[2019-01-08] MEDS: levETIRAcetam 500 MG TAB PO SCH (21:31)
[2019-01-09 04:27] VITALS: O2SAT 99
[2019-01-09 06:25] LABS: Absolute Lymphocytes (CBC) 2.3 K/uL (0.7-4.9); Basophils % 0.7 % (0-1.3); Hematocrit 33.1 % (36.0-45.0); MPV 8.5 fL (7.6-11.3); RBC Red Blood Cell Count 3.99 M/uL (3.86-4.86)
[2019-01-09] MEDS: NA CHLORIDE 0.9% 1,000 ML IV SCH (06:25)
[2019-01-09 06:27] LABS: BUN Blood Urea Nitrogen 5 mg/dL (7-18); Bicarbonate 25 mmol/L (21-32); Glucose Level 89 mg/dL (74-106); Potassium 3.6 mmol/L (3.5-5.1); Sodium Level 142 mmol/L (136-145)
[2019-01-09] MEDS: levETIRAcetam 500 MG TAB PO SCH (08:33)
[2019-01-09] MEDS ORDERED: INFLUENZA VACCINE (for 3y+) 0.5 ML DOSE IMVAC ONE (11:00)
--- NOTE | 2019-01-09 11:50 | RAD REPORT ---
EXAM DESCRIPTION: RAD CHEST SINGLE VIEW CLINICAL HISTORY: Shortness of breath, stoke like symptoms. COMPARISON: Portable chest December 27, 2018 TECHNIQUE: Semi-upright single view portable examination obtained 1626 hours FINDINGS: The lung volumes are low. No peripheral mass or consolidation. The heart size is normal in range. Central vasculature and lung markings are mildly prominent and believed to be the affects of portable technique and shallow inspiration. Minimal volume overload or edema would be possible. No pneumothorax or pleural effusion. No bone or aortic acute finding. IMPRESSION: 1. No focal mass or consolidation. 2. Low inspiration accentuates the central vasculature and lung markings potentially masking early edema or infiltrate.
[2019-01-09 14:54] VITALS: BP 94/50; TEMP 98.3
--- NOTE | 2019-01-09 19:04 | HP ---
Date of Admission: 01/08/2019 Chief Complaint: Seizure. 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 Patient never had any prior episodes of seizure, but recently on 12/27/2018 and 01/01/2019 while she was at work, she had episodes of seizure and she was taken to the emergency room. Each time she had a CAT scan of head done and second time, which is 01/01/2019, she had MRI of brain done. Her CAT scan and MRI brain both were negative. During her second visit in the emergency room on 01/01/2019, she was discharged to go home with Keppra 500 mg twice a day. Since that visit, patient has scheduled her appointment to see neurologist in [place] area, which is scheduled for next week on Saturday, and today she actually went to [place] and had an outpatient EEG done per this neurologist. Couple of days ago, she came to office for followup visit; and at that time, she was instructed to continue her Keppra as prescribed , but also she was given instruction that she should not drive a car or operate any motor vehicle, and she should not take any baths in the bathtub, should not swim in swimming pool or should not get in any open body water until further instruction. So, Today, her mother drove her to hospital to drop some papers; and after that, her mother was driving her back home and they were only about 2 minutes away from the hospital after they left and all of a sudden the patient while she was in the passenger seat started screaming "mom, mom" and next thing patient's mother noted that she was having generalized tonic-clonic seizure. She turned around and came back to the emergency room. Her seizure episode lasted approximately close to 10 minutes. Medications were given in the emergency room and I was contacted and patient was admitted to the hospital with neurology consultation with Dr. Stone. I saw her in emergency room. Her and parents were with her in the room. Patient was postictal. She was sluggish. Speech was soft and slow, but no focal weakness. She is having generalized weakness. Denies any headache. Allergies: NO KNOWN ALLERGIES. Medications: Levothyroxine and Keppra. Review of Systems: FLOOD CONTROL ENGINEER: As mentioned above. All other systems reviewed and negative. Past Medical History: Significant for known alcoholic fatty liver disease, hypothyroidism, and anxiety. Past Surgical History: Appendectomy, eye surgery for strabismus. Family History: Mother with hyperlipidemia. Social History: Negative for smoking and alcohol use. Physical Examination: Vital Signs: Height 5 feet 1 inch. Weight 70.31 kg. Temperature 98.9, pulse 143, respiratory rate 20. blood pressure 129/79. General: Patient appears weaker than normal, sluggish, little sleepy, and speech is soft, little difficult to understand. HEENT: Head atraumatic, normocephalic. Conjunctivae nonerythematous. Sclerae white. Mouth, no thrush or edema noted. Ears/Nose, no mass, lesion, discharge noted. Neck: Supple. No JVD, lymph nodes, bruit, thyromegaly noted. Lungs: Bilateral good equal air entry. Clear to auscultation. No rhonchi. No rales. Heart: Normal heart sounds, no murmur or gallop. Abdomen: Soft, bowel sounds normal. No guarding, rigidity, tenderness, mass, hepatosplenomegaly, distention, or bruit noted. Extremities: No leg edema. No calf tenderness. Skin: No rash, ulcer, cellulitis. Lymphatics: No lymph node enlargement in neck, supraclavicular, infraclavicular region. Neuro: No focal neurological deficit. Chest: Unremarkable. External Genitalia: Deferred. Rectal: Deferred. Laboratory Data: White count 15, hemoglobin 13.4, platelets 418. INR 1.02. Sodium 140, potassium 3.4, chloride 106, bicarb 18, BUN 10, creatinine 0.77, glucose 104. Liver function tests unremarkable. Troponin less than 0.02. Urine drug screen negative. CAT scan of the head negative for any acute intracranial changes. Chest x-ray, no acute cardiopulmonary changes present. Impression: 1. Seizure. 2. Hypothyroidism. 3. Nonalcoholic fatty liver disease. 4. Anxiety. Plan: Admit patient to hospital for further evaluation and management of this problem. We will put patient on seizure precautions. I did discuss with family at great length about measures to reduce her stress and anxiety. Family had question about starting medication for anxiety like Prozac or Paxil or something like that and I informed that this is not appropriate time to start any such medication as those medication tends to reduce seizure threshold. So, at this point, she should not start such medication. We can use medication like Ativan or Valium on a p.r.n. basis. In fact, we should use such medication tonight to help her get some sleep. Family was advised to spend night with her in the hospital. We talked about seizure precautions at home on an ongoing basis. We will follow up with neurologist regarding medication adjustment for her seizure and I will see her tomorrow for followup. Possible discharge tomorrow depending on neurologist's recommendation and patient's condition. MICHELLE/MAEVE Voice ID: [id number] YISEL
--- NOTE | 2019-01-10 04:42 | EKG ---
Test Date: 2019-01-09 Test Time: 07:30:46 Full Stack Net Developer: KAYE MEASUREMENT RESULTS: Intervals: Rate: 94 TX: 162 QRSD: 78 QT: 352 QTc: 440 [place]: P: 60 TX: 162 QRS: 43 T: 41 INTERPRETIVE STATEMENTS: Normal sinus rhythm Normal ECG Compared to ECG 01/08/2019 15:53:06 Sinus tachycardia no longer present Myocardial infarct finding no longer present Electronically Signed On 01-10-19 04:42:10 CDT by Xiang Rolle
--- NOTE | 2019-01-10 05:46 | DS ---
Date of Discharge: 01/09/2019 Disposition: Discharged to go home. Physical Examination: HEENT: Unremarkable. Lungs: Clear to auscultation. Heart: Sounds normal. Abdomen: Soft. Bowel sounds normal. No guarding, rigidity, tenderness, or distention. Extremities: No leg edema. Laboratory Data: Today, white count 15.3, hemoglobin 11.1, platelets 289. Sodium 142, potassium 3.6, chloride 111, bicarb 25, BUN 5. Urine culture negative. Final Diagnoses: 1. Seizure disorder. 2. Hypothyroidism. 3. Anxiety. 4. Leukocytosis secondary to seizure disorder. Discharge Medications And Instructions: 1. Increase dose of Keppra to 750 mg twice a day. 2. Continue other prior home medication, which is levothyroxine. 3. Follow up with the neurologist next week on Saturday when she has her appointment. Hospital Course: A 28-year-old female patient, admitted to the hospital with episode of seizure. Please see dictated H and P for more information yesterday. After the patient was admitted to hospital, her condition remained stable, and this morning, she was back to her normal self. Yesterday, she was still in postictal state, but today she was back to her normal usual self. No focal neurological deficit. She is tolerating diet well, ambulating well. No headache. Neurology consultation was requested from Dr. Stone and he has suggested to increase the dose of Keppra from 500 to 750 mg twice a day and for her to keep her appointment with the neurologist that she has in [place] for this coming week on Saturday. Patient was given appropriate instruction that she should not drive her car or operate any hazardous machineries and she should not get into a swimming pool, avoid bathtubs, avoid getting into any open body water like lakes, ponds, ocean, etc. We also talked about some other instructions like she has a baby, who is few months old and we talked about that it would be safer for her to hold her baby while she is sitting or lying down instead of standing and walking around until her seizure gets under better control as we do not want her to have an episode of seizure while she is holding her baby and end up dropping baby on the floor to cause any injury. So , we did talk about all those things. I also suggested her not to take shower while standing and if possible sit down while taking shower, etc. Patient was discharged in stable condition with above-mentioned medications and instructions. MICHELLE/MAEVE Voice ID: [id number] Report ID: [id number] MTDD
--- NOTE | 2019-01-10 17:11 | RAD REPORT ---
EXAM DESCRIPTION: MRI - Brain Wo Cont - 01/10/2019 9:09 am CLINICAL HISTORY: DIZZINESS, SLURRED SPEECH COMPARISON: CT head January 08, MR brain December 2018 TECHNIQUE: Sagittal T1-weighted images were obtained along with axial PD, heavily T2-weighted and T2 -FLAIR images. Axial DWI and ADC mapping sequences were also obtained along with coronal heavily T2-w eighted images. FINDINGS: No intracranial hemorrhage, mass or acute infarction. There is no edema or shift of midlin e structures. No extra-axial fluid collections. Metzger-matter/white matter junction is preserved. Signa l voids are seen as a normal finding in the major intracranial vessels. No globe or orbital content abnormality. No sella or supra sella abnormality seen. No tonsillar ectop ia. Mastoid air cells and paranasal sinuses are clear. Motion degradation resulted in the need for multiple image repetition. 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 Verbal report was provided at the time of the study. IMPRESSION: No infarction or other acute intracranial finding.
== END 2019-01-09 15:08 | disposition home or self-care (01) ==
LOC: ER 15:14 → ERHOLD 17:04 → 2ND 20:01
PROVIDERS: ADMIT Internal Medicine; ATTEND Internal Medicine
DX: G40.909 Epilepsy, unspecified, not intractable, without status epilepticus (principal); E03.9 Hypothyroidism, unspecified; F41.9 Anxiety disorder, unspecified; D72.829 Elevated white blood cell count, unspecified; K76.9 Liver disease, unspecified
CPT/HCPCS: 96365; 93005 ×2; 85025 ×2; 87086; 80048 ×2; 36415; 83735; 85610; 82962; 80076; 80307 ×8; 84484; 83880; 70450; 71045; 70551; 96375; 99291; 99292; 96366; J1953; J7030 ×4; G0378 ×3; 87088

== ENCOUNTER → 2019-11-21 | Day surgery (SDC) | payer OTHER ==
[~2019-11-21] MED LIST changes: +CEFAZOLIN/SWI 1gm 0 GM/0 ML SYR ONE; +CEFAZOLIN/SWI 2gm 2 GM/20 ML SYR IVP ONE; +FENTANYL CITR 100 MCG/2 ML ONE; +KETOROLAC 30 MG/ML INJ ONE; +LIDOCAINE 1% MPF 2 ML AMPULE ONE; +LIDOCAINE 1% W/EPI 1:100,000 MDV 20 ML VIAL ONE; +LIDOCAINE 2% MPF 5 ML VIAL ONE; -LORazepam 2 MG/ML VIAL ONE; +ONDANSETRON 4 MG/2 ML VIAL ONE; +Ringers Lactate 1,000 ML IV ONE; +dexAMETHasone 10 MG/ML VIAL ONE; +propofoL 200 MG/20 ML VIAL IV ONE
--- OUTSIDE RECORDS SUMMARY | 2019-11-21 06:35 | XMS REPORT | Clinical Summary ---
:1990 Author Organization [facility] Address [address] [place] [address] Care Team Providers Name Role Phone Alvarez [...] Encounters Date Type Specialty Care Team Description 03/13/2019 Transcribe Orders Radiology Jyothi Melendez Goiter (Primary Dx) MD Zari after 11/20/2018 Family History Relation Name Status Comments Father [...] Comments CERVICAL CANCER SCREENING 12/17/2012 INFLUENZA VACCINE 12/08/2019 Procedures Procedure Name Priority Date/Time Associated Diagnosis Comme nts US THYROID Routine 03/19/2019 11:55 AM Goiter Results for this WHEEL ROLLER procedure are i n the results section . after 11/20/2018 Results US Thyroid (03/19/2019 11:55 AM WHEEL ROLLER) Specimen Narrative Performed At EXAMINATION: US THYROID [facility] CLINICAL HISTORY: E04.9 Nontoxic goite r unspecified, E04.9 COMPARISON: None. TECHNIQUE: Transverse and longitudinal sonographic oneal ges of the thyroid gland were obtained. Grayscale and color Doppler image s were also obtained. FINDINGS: RIGHT THYROID LOBE: 1.The right thyroid lobe measures 3.9 x 1 x 1.1 cm. cm . It is homogenous in echotexture. . 2.There are no enlarged right neck lymph nodes. NODULE 1 Location: Posterior mid Size: 5 x 4 x 4 millimeters Composition: Solid or almost enti rely solid 2 pts Echogenicity: Hyperechoic or Isoe choic 1 pt Shape: Wider than tall 0 pts Margin: Smooth 0 pts Echogenic foci: None or large com et-tail artifacts 0 pts TOTAL POINTS: 3 ISTHMUS: 1.The isthmus thickness measures 3 mm LEFT THYROID LOBE: 1.The left thyroid lobe measures3.7 x 0.9 x 1.3 cm cm. It ishomogenous in echotexture 2.There are no enlarged left neck lymph nodes. No nodules IMPRESSION: 1.A 5 mm TIRAD 3 nodule. Follow-up is no t required. ACR TI-RADS 0 points: TR1. Benign. No FNA. 2 points: TR2. Not suspicious. No FNA. 3 points: TR3. Mildly suspicious. FNA if > or = 2.5 cm . Follow if > or = 1.5 cm. 4-6 points: TR4. Moderately suspicious. FNA if > or = 1.5 cm. Follow if > or = 1 cm. 7 or more points: TR5. Highly suspicious. FNA if > or = 1 cm. Follow if > or = 0.5 cm. [id number] Procedure Note Interface, Radiology Results Incoming - 03/19/2019 2:00 PM WHEEL ROLLER EXAMINATION: US THYROID CLINICAL HISTORY: E04.9 Nontoxic goiter unspecified, E04.9 COMPARISON: None. TECHNIQUE: Transverse and longitudinal s onographic images of the thyroid gland were obtained. Grayscale and color Doppler images were also obtained. FINDINGS: RIGHT THYROID LOBE: 1.The right thyroid lobe measures 3.9 x 1 x 1.1 cm. cm. It is homogenous in echotexture. . 2.There are no enlarged right neck lymph nodes. NODULE 1 Location: Posterior mid Size: 5 x 4 x 4 millimeters Composition: Solid or almost entire ly solid 2 pts Echogenicity: Hyperechoic or Isoech oic 1 pt Shape: Wider than tall 0 pts Margin: Smooth 0 pts Echogenic foci: None or large comet -tail artifacts 0 pts TOTAL POINTS: 3 ISTHMUS: 1.The isthmus thickness measures 3 mm LEFT THYROID LOBE: 1.The left thyroid lobe measures3.7 x 0. 9 x 1.3 cm cm. It ishomogenous in echotexture 2.There are no enlarged left neck lymph nodes. No nodules IMPRESSION: 1.A 5 mm TIRAD 3 nodule. Follow-up is no t required. ACR TI-RADS 0 points: TR1. Benign. No FNA. 2 points: TR2. Not suspicious. No FNA. 3 points: TR3. Mildly suspicious. FNA if > or = 2.5 cm. Follow if > or = 1.5 cm. 4-6 points: TR4. Moderately suspicious. FNA if > or = 1.5 cm. Follow if > or = 1 cm. 7 or more points: TR5. Highly suspicious . FNA if > or = 1 cm. Follow if > or = 0.5 cm. 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
--- OUTSIDE RECORDS SUMMARY | 2019-11-21 06:35 | XMS REPORT | Continuity of Care Document ---
:1990 Author Organization [facility] t Address [address] [place] [address] Care Team Providers Name Role Phone Beckie KLEIN C Primary Care Physician Al KLEIN, O. Attending Clinician [phone] PAM Attending Clinician Unavailable EEG Attending Clinician Unavailable Payers Payer Name Policy Type Policy Number Effective Date Expiration Date S chip CIGNACIGNA OPEN xxxxxxxxxxx 2018 [place] ACCESS/NETWORKxx 00:00:00 Methodis t xxxxxxxx 9-PresentHMO Problems Condition Condition Condition Status Onset Resolution Last Treating Co mments Source Name Details Category Date Date Treatment Clinician Date Convulsion Convulsion [facility] Epilepsy Problem Active [facility] Anxiety An[facility] Focal Focal Problem [facility] Endocrine, Endocrine, Problem Active [facility] nutritiona nutritiona Eloina kes - l and l and Memoria metabolic metabolic l diseases diseases Outpat i complicati complicati en t ng Clinics , , first first trimester trimester Encounter Encounter Problem Active [facility] - supervisio supervisio Me sulaiman n of n of l normal normal Outpati first first ent Clin ics in second in second trimester trimester Hypothyroi Hypothyroi Problem Active [facility] dism, dism, [facility] - unspecifie unspecifie Me moria d d l Outpati ent Clinics Unspecifie Unspecifie Problem Active [facility] d [facility] - abdominal abdominal [facility] pain pain [facility] 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 [facility] - beta beta Memoria lactamase lactamase l (ESBL) (ESBL) [facility] resistance resistance en t Clinics Other Other Problem Active [facility] specified specified Luke s - New tha related related l conditions conditions Ou tpati , , ent unspecifie unspecifie Cl inics d d trimester trimester Bacterial Bacterial Problem Active [facility] infection, infection, Eloina kes - unspecifie unspecifie Me moria d d l [facility] Pyelonephr Pyelonephr Problem Active [facility] itis itis [facility] - affecting affecting New tha l in second in second Outp ati trimester trimester ent Clinics Endocrine, Endocrine, Problem Active [facility] nutritiona nutritiona Eolina kes - l and l and Memoria metabolic metabolic l diseases diseases Outpat i complicati complicati en t [facility] [place]) Clinics , , second second trimester trimester High-risk High-risk Problem Active [facility] - in second in second New [facility] trimester [facility] Problem Active [facility] related related [facility] - renal renal Memoria disease in disease in l second second Outpati trimester trimester ent Clinics Renal Renal Problem Active [facility] calculi calculi [facility] - [facility] Encounter Encounter Problem Active [facility] - supervisio supervisio Me moria n of n of l normal normal Outpati first first ent Clin ics in third in third trimester trimester Need for Need for Problem Active [facility] t Tdap Tdap [facility] - vaccinatio vaccinatio Me moria n n [facility]ics Supervisio Supervisio Problem Active [facility] n of high n of high Luke s - risk risk Memoria l in third in third Outpat i trimester trimester ent Clinics History of History of Diagnosis Active [facility] - delivery delivery Memori a l [facility] ent Clinics Postop Postop Diagnosis Active [facility] check check [facility] - Memoria l [facility] ent Clinics Allergies, Adverse Reactions, Alerts This patient has no known allergies or adverse reactions. Family History Family Member Diagnosis Comments Start Date Stop Date Source Unknown Family Family history of Other Uni versity of Member hypertension Omid Mc ians Unknown Family Family history of Other Uni versity of Member diabetes mellitus [place] [facility] Mother Family history of Univers ity of hyperlipidemia [place] [facility] Mother Family history of Univers ity of Anxiety [place] [facility] Social History Social Habit Start Date Stop Date Quantity Comments Source Sex Assigned At Chance [place] Smoking Status Start Date Stop Date Source Never smoker [place] Rubiis t Medications Ordered Filled Start Stop Current Ordering Indication Dosage Frequency Signature Comments Components Source Medication Medication Date Date Medication? Clinician (SIG) Name Name Ativan 0.5 Ativan 0.5 2018-04 Yes 1 Q0.5D TAKE 1 Univers MG Oral MG Oral 0-09 TABLET ity of Tablet Tablet 00:00: TWICE [place] 00 DAILY Physici ans Levothyroxi Levothyroxi 2018-04 Yes 1 QD TAKE 1 Univers ne Sodium ne Sodium 0-09 TABLET ity of 150 MCG 150 MCG 00:00: DAILY [place] Oral Tablet Oral Tablet 00 P hysici ans diazePAM 10 diazePAM 10 2018-04 Yes PRN use Univers MG Rectal MG Rectal 0-09 only 1 ity of Gel Gel 00:00: dose for [place] seizure Physici greater ans than 2 minutes levETIRAcet levETIRAcet 2018-04 Yes GRICELDA Q0.5D TAKE 1 Univers am 1000 MG am 1000 MG 0-09 PAM M.D. TABLET ity of Oral Tablet Oral Tablet 00:00: TWICE [place] 00 DAILY. Physici ans Breast Pump Breast Pump Yes Panfilo as [facility] 2[facility]13 Rekhi directed [facility] - 00:00: Memoria 00 [facility] ent Clinics levothyroxi Yes 200ug QD Take 200 [place] ne 1-15 mcg by Methodbetsy (SYNTHROID, 15:30: mouth st LEVOXYL) 05 every 200 mcg morning. tablet nitrofurant Yes Q.5D Take by Chance [place], 1-15 mouth 2 Methodi macrocrysta 15:30: (two) st l-monohydra 05 times a te, day. (MACROBID) 100 MG capsule Macrobid Macrobid 2017-04 2019 No Panfilo [address] 2-02 01- Rekhi with food [facility] - 00:00: 00:00 Memoria 00 :00 [facility] ent Clinics CitraNatal CitraNatal 2017-04 Yes Panfilo [address] [facility] [place] 2-03 [place]ek[place] [facility] - 00:00: Memoria 00 l Outpati ent Clinics Diclegis Diclegis 2018-1 Yes Panfilo [address] 0-09 Rekhi at bedtime [facility] - 00:00: on an Memoria 00 empty l stomach Outpati ent Clinics Synthroid Synthroid Yes Panfilo [address] Rekhi on an [facility]ukes - empty Memoria stomach in l the Outpati morning ent Clinics Vital Signs Vital Name Observation Time Observation Value Comments Source BP Systolic 2019-01-26 120 mm[Hg] University 10:26:00 [place] [facility] BP Diastolic 2019-01-26 78 mm[Hg] University 10:26:00 [place] [facility] Height 2019-01-26 59 [in_us] University 10:26:00 [place] [facility] Weight 2019-01-26 150.4375 [lb_av] [facility] 10:26: [place] [facility] Body Mass Index 2019-01-26 30.38 kg/m2 University o f Calculated 10:26:00 [place] [facility] Heart Rate 2019-01-26 82 /min University 10:26:00 [place] [facility] BP Systolic 2019-01-14 118 mm[Hg] Location: [facility] 14:48:00 Position: [place] [facility] Sitting BP Diastolic 2019-01-14 80 mm[Hg] Location: [facility] 14:48:00 Position: [place] [facility] Sitting Height 2019-01-14 59 [in_us] University 14:48:00 [place] [facility] Weight 2019-01-14 148 [lb_av] University 14:48:00 [place] [facility] Body Mass Index 2019-01-14 29.89 kg/m2 University o f Calculated 14:48:00 [place] [facility] Temperature 2019-01-14 98.6 [degF] Method: Oral [facility] 14:48:00 [place] [facility] Heart Rate 2019-01-14 90 /min Location: [facility] 14:48:00 Brachial [place] [facility] Artery; Procedures Procedure Date / Time Performed Performing Clinician [facility] e THYROID 2019-03-19 11:55:37 Louis Melendez MRI Brain wo contrast 2019-01-14 00:00:00 [facility] [id number] Physicians History of University o f [place] section Physicians History of Eye University [facility] xa surgery Physicians Plan of Care Planned Activity Planned Date Details Comments Source Future Scheduled 2019-12-08 INFLUENZA VACCINE [place] [facility] 00:00:00 [code = INFLUENZA VACCINE] Future Scheduled 2012-12-17 Screening for [facility] 00:00:00 malignant neoplasm of cervix (procedure) [code = 739628260] Encounters Start End Encounter Admission Attending Care Care Encounter Source Date/Time Date/Time Type Type Clinicians Facility Department ID 2019-01-26 2019-01-26 Appointmen ROSALBA OROZCO Neurology - [id number] Univers 10:00:00 10:00:00 t; GRICELDA OROZCOUT [facility] [place] [facility] 2019-01-14 2019-01-14 Appointmen ROSALBA OROZCO Neurology - [id number] [facility] 15:00:00 15:00:00 t; GRICELDA OROZCOUT [facility] Mikayla MADISON [facility] Mikayla [place] Physici ans 2019-01-08 2019-01-08 Appointmen ROSALBA SOUZA UTP [id number] Univers 08:00:00 08:00:00 t; EEG, ADULTCLINIC it y of ADULTCLINI [facility] Physici ans 2018-07-30 2018-07-30 [facility] [id number] [address] 09:30:00 09:30:00 t [facility] 2018-07-18 2018-07-18 [facility] [id number] 10:10:00 10:10:00 t [facility] - [facility] 2018-07-16 2018-07-16 [facility] [id number] 16:59:00 16:59:00 t W[facility]ens [facility]ens Care [facility] 2018-07-16 2018-07-16 [facility] [id number] 10[facility]15:00 10:15:00 t Womens Womens Care L [facility] 2018-07-09 2018-07-09 [facility] [id number] 10:15:00 10:15:00 t Womens Womens Care L es - Care [facility] 2018-07-01 2018-07-01 [facility] [id number] 10:00:00 10:00:00 t Womens Womens Care [facility] - Care [facility] 2018-06-24 2018-06-24 [facility] [id number] 10:00:00 10:00:00 t Womens Womens Care [facility] - Care [facility] 2018-06-11 2018-06-11 [facility] [id number] 14:15:00 14:15:00 t Womens Womens [facility] - Care [facility] 2018-05-21 2018-05-21 [facility] [id number] 14:00:00 14:00:00 t [facility] - Care [facility] 2018-05-06 2018-05-06 [facility] [id number] 09:30:00 09:30:00 t Womens Womens [facility] - Care [facility] 2018-05-05 2018-05-05 [facility] [id number] 14:09:00 14:09:00 t [facility] 2018-04-23 2018-04-23 [facility] [id number] 11:15:00 11:15:00 t Womens Womens Care [facility] - Care [facility] 2018-04-03 2018-04-03 [facility] [id number] 16:51:00 16:51:00 t Womens [facility]ens [facility] 2018-04-03 2018-04-03 [facility] [id number] 16:48:00 16:48:00 t Women Womens [facility] Care [facility] Results This patient has no known results.
[2019-11-21 07:15] LABS: Specific Gravity 1.025 (1.005-1.030)
[2019-11-21 08:48] VITALS: O2SAT 100
[2019-11-21 09:19] VITALS: TEMP 98.6
[2019-11-21 09:44] VITALS: BP 111/67
--- NOTE | 2019-11-21 20:10 | OP ---
Date of Procedure: 11/21/2019 Surgeon: Kathryn Russell MD Control Cabinet Assembler: No personal injury legal assistant. Preoperative Diagnosis: Left Bartholin's gland abscess. Postoperative Diagnosis: Left Bartholin's gland abscess with cellulitis. Procedure Performed: Left Bartholin's gland incision and drainage and marsupialization. Anesthesia: General with LMA. Complications: No complications. Drains: No drains. Specimens: Aerobic and anaerobic cultures. Gland was marsupialized. On findings, the abscess was 5 x 5 cm with large amount of purulent discharge. After decompression, the cyst wall was very friable . However, marsupialization was performed with 3-0 Vicryl interrupted stitches x6. Indications: The patient is a 28-year-old, presented with Bartholin's gland cyst, recurrent swelling , had 1 in the past with Dr. Abel. This was drained. Now, this is a second episode, month ago started and decreased in size and in the past few days, it came back up and was increasing in size. After 24 hours of antibiotics and observation, it got much bigger and more painful, so she was re-maurice luated in the office and then sent into the hospital for immediate drainage as she was getting worse despite antibiotics. She was consented for an abscess drainage and marsupialization. Bleeding, infection, and dyspareunia discussed as complications, consented, and taken to the OR. Description Of Procedure: 2 g of Ancef were given. SCDs were placed. General anesthesia was given using LMA. The patient placed in a dorsal lithotomy position. Vulva, vagina, perineum prepped and d raped in a sterile fashion. After exam under anesthesia and confirmation that this is a Bartholin's gland abscess, an incision was placed in the medial aspect of the gland on the inside of the labia mi jazzmine, closed with punctum. The incision was about 1.5 cm after injection with local with the scalpel . Then, the cavity was drained with the help of a hemostat after making an incision with a knife. Mary Jim clamps were used to hold the edges as well as the cyst wall. Hemostasis was secured with the Bovie and then sutured on the base of it and then sutured the cyst wall to the outer skin to incr ease the size of the slit with 3-0 Vicryl sutures x7. Once these were done, there was good hemostasi s. The abscess cavity was thoroughly irrigated before the stitching was done. Then, after the sutur es were placed, it was packed with quarter-inch Nu Gauze packing, so that there would not be any blee ding and which could be removed in 24 hours. She was straight cathed due to the location and possibi lity of postop pain and attention. Instrument, needle, and sponge counts were correct at the end of the case. The patient tolerated the procedure well. She was recovered from anesthesia and taken to PACU in stable condition. She was given instructions to pull the packing, talked to her mother, then antibiotics Bactrim to continue as given, and then grazyna care handout was given. She will call to hayder argueta a 1 week postop appointment. She was given a prescription of Tylenol with Codeine 20 tablets. DELFINA/MAEVE Voice ID: [id number] Report ID: [id number]
== END ==
LOC: OR 06:32
PROVIDERS: ATTEND Obstetrics & Gynecology
PROC: 0UBL0ZZ Excision of Vestibular Gland, Open Approach (ICD-10-PCS; principal; 2019-11-21 07:00)
DX: N75.0 Cyst of Bartholin's gland (principal); Z20.828 Contact with and (suspected) exposure to other viral communicable diseases; E03.9 Hypothyroidism, unspecified; F33.1 Major depressive disorder, recurrent, moderate; F41.9 Anxiety disorder, unspecified; Z79.899 Other long term (current) drug therapy
CPT/HCPCS: 56740; 87070; 87205 ×2; 81025; 87075; 87077 ×2; 87186 ×2; U0002; J2704; J3010; J1100; J2001; J0690; J7120; J2405

== ENCOUNTER 2022-08-14 11:40 | Day surgery (SDC) | payer BC ==
[2022-08-14] MEDS ORDERED: Ringers Lactate 1,000 ML IV ONE (11:59)
[2022-08-14] MEDS ORDERED: CEFAZOLIN SODIUM 2 GM/VIAL ONE (11:59)
[2022-08-14] MEDS ORDERED: MIDAZOLAM HCL 2 MG/2 ML INJ ONE (12:00)
[2022-08-14] MEDS ORDERED: ONDANSETRON 4 MG/2 ML VIAL ONE (12:00)
[2022-08-14] MEDS ORDERED: LIDOCAINE 2% MPF 5 ML VIAL ONE (12:00)
[2022-08-14] MEDS ORDERED: FENTANYL CITR 100 MCG/2 ML ONE (12:00)
[2022-08-14] MEDS ORDERED: propofoL 200 MG/20 ML VIAL IV ONE (12:00)
[2022-08-14] MEDS ORDERED: LIDOCAINE 1.5% W/EPI AMP 5 ML ONE (12:25)
[2022-08-14] MEDS ORDERED: KETOROLAC 30 MG/ML INJ ONE ×2 (12:45→12:46)
[2022-08-14 13:14] VITALS: BP 101/63; TEMP 97.3; O2SAT 99
--- NOTE | 2022-08-15 12:35 | OP ---
Date of Procedure: 08/14/2022 Surgeon: Kathryn Russell MD Physical Testing Supervisor: Joyce Perdomo. Preoperative Diagnosis: Recurrent left Bartholin gland cyst. Postoperative Diagnosis: Left Bartholin gland abscess. Procedure Performed: Exam under anesthesia and left Bartholin gland drainage and incision and draina ge and marsupialization. Anesthesia: Monitored anesthesia care and local. Estimated Blood Loss: Minimal. Specimens: No specimens. Complications: No complications. Drains: No drains. Condition: Patient's condition is stable. Findings: Left Bartholin gland was found to be enlarged and approximately between 3 to 4 cm in size. No erythema or induration on the overlying skin or in the surrounding tissues. A 2 cm incision was made right at the junction of the vestibule with the inner labium in a semicircular fashion. The gl and was drained and carefully the cyst wall was externalized and sutured to the epithelial incision w ith 3-0 Vicryl interrupted sutures x8. Indications: The patient is a 31-year-old with history of left Bartholin gland abscess. In the past , she underwent left Bartholin gland marsupialization after drainage. However, in the past year, she has had recurrent enlargement and tenderness. However, they have spontaneously resolved. Most rece ntly, when she had recurrence of the cyst, she presented to the office. We waited for about 4 days t o see if there is going to be further enlargement or evidence of any infection, so we could drain. T here was none. The mass stayed about the same, but was tender. So we discussed about excision of the gland in the past with the patient. However, given the size of it and the age of the patient being only 31, the risk of any glandular carcinoma is extremely low an d therefore we consented her for a larger opening at the time of marsupialization. This would be lik lencho the best option at this time for the patient instead of a Bartholin's gland excision which was th e other option. The risks of vulvar hematoma and pain have been reviewed with the patient. She cons ented for the marsupialization. Description Of Procedure: She was taken back to the OR, placed in a supine fashion on the operating table. 2 g of Ancef were given. She was placed under MAC. She was placed in a dorsal lithotomy position using Fede stirrups. Vulva, vagina, and perineum were prepped and draped in a sterile fashion. The area surrounding the gland on the inner labium and ves tibule was injected with 1.5% lidocaine with epinephrine 10 cc was used. Then, a 2 cm incision was m omi in a semicircular fashion along the line of curvature of the way in the hymenal ring and the labi um. Once I went through the skin, the skin was undermined to raise a good flap on all sides. Then, the gland wall was picked up and incised carefully with a 2 cm incision on the cyst wall as well. Th ere was purulent fluid that was drained. Once the irrigation and suction were performed with copious amount of sterile water, I proceeded with the marsupialization. Marsupialization: This was done with the help of 3-0 Vicryl sutures in an interrupted fashion placed from full-thickness of the cyst wall to the full thickness of the skin by taking care to not cause a ny necrosis carefully 8 sutures were placed all around. The angles were well anchored on the top and the bottom, so that the gland wall would not cade and prolapse itself in. Once this was done, 0.5 inch Nu-Gauze was packed into the gland without any problems. She tolerated the procedure well. More local was given at the end of the case, another 5 cc. She was recovered from anesthesia and taken to PACU in a stable condition. EBL was minimal. The patient has a 1- week followup appointment and instructions to remove her pack in 24 hours and shower. DELFINA/MAEVE Voice ID: [id number] Report ID: [id number]
== END 2022-08-14 13:45 | disposition home or self-care (01) ==
LOC: OR 11:40
PROVIDERS: ATTEND Obstetrics & Gynecology
PROC: 0U9LXZZ Drainage of Vestibular Gland, External Approach (ICD-10-PCS; principal; 2022-08-14 13:45)
DX: N75.0 Cyst of Bartholin's gland (principal)
CPT/HCPCS: 81025; 56420; J2704; J2001; J2250; J3010; J2405; J7120